=== PATIENT | female | born 1945 | race Caucasian/White ===

== ENCOUNTER → 2023-12-13 08:57 | Outpatient (REF) | payer MEDICARE, SELFPAY | LOC: RCS 08:57 | PROVIDERS: ATTENDING PHYSICIAN Nurse Practitioner Family | DX: I10 Essential (primary) hypertension (principal); R00.2 Palpitations; E78.00 Pure hypercholesterolemia, unspecified; R35.0 Frequency of micturition; Z13.89 Encounter for screening for other disorder; I35.0 Nonrheumatic aortic (valve) stenosis; I34.0 Nonrheumatic mitral (valve) insufficiency; I36.1 Nonrheumatic tricuspid (valve) insufficiency | CPT/HCPCS: 93005 ==

== ENCOUNTER → 2023-12-21 10:32 | Outpatient (REF) | payer MEDICARE, SELFPAY ==
[2023-12-21 11:08] LABS: % Basophils 1.1 % (0-2); % Immature Granulocytes 0.4 % (0-0.5); % Lymphocytes 30.2 % (20.5-51.1); % Monocytes 8.9 % (1.7-9.3); % Neutrophils 58.4 % (42.2-75.2); Absolute Basophils 0.1 10^3/uL (0-0.2); Absolute Eosinophils 0.1 10^3/uL (0-0.7); Absolute Lymphocytes 1.6 10^3/uL (1.2-3.4); Absolute Monocytes 0.5 10^3/uL (0.1-0.6); Absolute Neutrophils 3.1 10^3/uL (1.4-6.5); Hemoglobin 12.9 g/dL (12.0-16.0); Mean Corp Hgb Conc. 33.1 g/dL (33.0-37.0); Mean Corpuscular Volume 81.8 fL (81.0-99.0); Mean Platelet Volume 11.4 fL (7.4-10.4); Nucleated Red Blood Cells % 0 %; Platelet Count 154 10^3/uL (130-400); Red Blood Cell Count 4.77 10^6/uL (4.20-5.40); Red Cell Dist. Width 13.2 % (11.5-14.5); White Blood Cell Count 5.3 10^3/uL (4.8-10.8)
[2023-12-21 11:27] LABS: Blood Urea Nitrogen 23 mg/dl (7-17); Calcium 9.7 mg/dl (8.4-10.2); Carbon Dioxide 35 mmol/L (22-30); Chloride 92 mmol/L (98-107); Glucose 155 mg/dl (70-99); Potassium 3.3 mmol/L (3.5-5.1); Sodium 136 mmol/L (135-145); eGFR > 60.00
== END ==
LOC: OLABPV 10:32
PROVIDERS: ATTENDING PHYSICIAN Nurse Practitioner Family
DX: I10 Essential (primary) hypertension (principal); R00.2 Palpitations; E78.00 Pure hypercholesterolemia, unspecified; R35.0 Frequency of micturition; Z13.89 Encounter for screening for other disorder; I35.0 Nonrheumatic aortic (valve) stenosis; I34.0 Nonrheumatic mitral (valve) insufficiency; I36.1 Nonrheumatic tricuspid (valve) insufficiency
CPT/HCPCS: 36415; 80048; 84443; 85025

== ENCOUNTER → 2024-01-04 10:23 | Outpatient (REF) | payer MEDICARE, SELFPAY ==
[2024-01-04 12:17] LABS: Blood Urea Nitrogen 20 mg/dl (7-17); Calcium 9.1 mg/dl (8.4-10.2); Carbon Dioxide 35 mmol/L (22-30); Chloride 96 mmol/L (98-107); Glucose 99 mg/dl (70-99); Potassium 3.5 mmol/L (3.5-5.1); Sodium 135 mmol/L (135-145); eGFR > 60.00
== END ==
LOC: OLABPV 10:23
PROVIDERS: ATTENDING PHYSICIAN Nurse Practitioner Family
DX: E87.6 Hypokalemia (principal)
CPT/HCPCS: 36415; 80048

== ENCOUNTER → 2024-02-15 09:50 | Outpatient (REF) | payer MEDICARE, SELFPAY ==
[2024-02-15 11:26] LABS: Blood Urea Nitrogen 19 mg/dl (7-17); Calcium 9.3 mg/dl (8.4-10.2); Carbon Dioxide 37 mmol/L (22-30); Chloride 96 mmol/L (98-107); Glucose 164 mg/dl (70-99); Potassium 3.4 mmol/L (3.5-5.1); Sodium 136 mmol/L (135-145); eGFR > 60.00
== END ==
LOC: OLABPV 09:50
PROVIDERS: ATTENDING PHYSICIAN Internal Medicine Geriatric Medicine
DX: E78.00 Pure hypercholesterolemia, unspecified (principal); I10 Essential (primary) hypertension; I35.0 Nonrheumatic aortic (valve) stenosis; I34.0 Nonrheumatic mitral (valve) insufficiency; E78.2 Mixed hyperlipidemia; H69.83 Other specified disorders of Eustachian tube, bilateral; E55.9 Vitamin D deficiency, unspecified; J90 Pleural effusion, not elsewhere classified; M76.60 Achilles tendinitis, unspecified leg; M72.2 Plantar fascial fibromatosis; Z13.31 Encounter for screening for depression
CPT/HCPCS: 36415; 80048

== ENCOUNTER → 2024-02-24 14:10 | Outpatient (REF) | payer MEDICARE, SELFPAY | LOC: RAD 14:10 | PROVIDERS: ATTENDING PHYSICIAN Nurse Practitioner Family; REFERRING PHYSICIAN Internal Medicine | DX: R19.00 Intra-abdominal and pelvic swelling, mass and lump, unspecified site (principal) | CPT/HCPCS: 76770 ==

== ENCOUNTER → 2024-03-21 09:50 | Outpatient (REF) | payer MEDICARE, SELFPAY ==
[2024-03-21 12:35] LABS: Blood Urea Nitrogen 21 mg/dl (7-17); Calcium 9.2 mg/dl (8.4-10.2); Carbon Dioxide 33 mmol/L (22-30); Chloride 97 mmol/L (98-107); Glucose 127 mg/dl (70-99); Potassium 3.7 mmol/L (3.5-5.1); Sodium 139 mmol/L (135-145); eGFR > 60.00
== END ==
LOC: OLABPV 09:50
PROVIDERS: ATTENDING PHYSICIAN Internal Medicine Geriatric Medicine
DX: E78.00 Pure hypercholesterolemia, unspecified (principal); J90 Pleural effusion, not elsewhere classified; I10 Essential (primary) hypertension; I35.0 Nonrheumatic aortic (valve) stenosis; I34.0 Nonrheumatic mitral (valve) insufficiency; E78.2 Mixed hyperlipidemia; H69.83 Other specified disorders of Eustachian tube, bilateral; E55.9 Vitamin D deficiency, unspecified; M76.60 Achilles tendinitis, unspecified leg; M72.2 Plantar fascial fibromatosis; R73.01 Impaired fasting glucose
CPT/HCPCS: 36415; 80048

== ENCOUNTER → 2024-03-26 09:15 | Outpatient (REF) | payer MEDICARE, SELFPAY | LOC: RCS 09:15 | PROVIDERS: ATTENDING PHYSICIAN Internal Medicine; FAMILY PHYSICIAN Internal Medicine Geriatric Medicine | DX: I35.0 Nonrheumatic aortic (valve) stenosis (principal); I35.1 Nonrheumatic aortic (valve) insufficiency; I34.0 Nonrheumatic mitral (valve) insufficiency; I36.1 Nonrheumatic tricuspid (valve) insufficiency | CPT/HCPCS: 93306 ==

== ENCOUNTER → 2024-04-23 10:30 | Outpatient (REF) | payer MEDICARE, SELFPAY | LOC: HWWDC 10:30 | PROVIDERS: ATTENDING PHYSICIAN Internal Medicine Geriatric Medicine | DX: Z12.31 Encounter for screening mammogram for malignant neoplasm of breast (principal) | CPT/HCPCS: 77063; 77067 ==

== ENCOUNTER → 2024-11-06 09:03 | Outpatient (REF) | payer MEDICARE, SELFPAY | LOC: RCS 09:03 | PROVIDERS: ATTENDING PHYSICIAN Internal Medicine; FAMILY PHYSICIAN Internal Medicine Geriatric Medicine | DX: I35.0 Nonrheumatic aortic (valve) stenosis (principal); I35.1 Nonrheumatic aortic (valve) insufficiency; I34.0 Nonrheumatic mitral (valve) insufficiency; I36.1 Nonrheumatic tricuspid (valve) insufficiency | CPT/HCPCS: 93306 ==

== ENCOUNTER → 2024-11-09 10:26 | Outpatient (REF) | payer MEDICARE, SELFPAY | LOC: OLABPV 10:26 | PROVIDERS: ATTENDING PHYSICIAN Internal Medicine | DX: I10 Essential (primary) hypertension (principal); E78.00 Pure hypercholesterolemia, unspecified; I70.0 Atherosclerosis of aorta | CPT/HCPCS: 36415 ==

== ENCOUNTER → 2024-11-13 11:52 | Outpatient (REF) | payer MEDICARE, SELFPAY ==
[2024-11-13 12:24] LABS: % Basophils 1.8 % (0-2); % Immature Granulocytes 0.3 % (0-0.5); % Lymphocytes 37.4 % (20.5-51.1); % Neutrophils 52.5 % (42.2-75.2); Absolute Basophils 0.1 10^3/uL (0-0.2); Absolute Lymphocytes 1.5 10^3/uL (1.2-3.4); Absolute Monocytes 0.3 10^3/uL (0.1-0.6); Absolute Neutrophils 2.1 10^3/uL (1.4-6.5); Hematocrit 39.3 % (37.0-47.0); Hemoglobin 12.5 g/dL (12.0-16.0); Mean Corp Hgb Conc. 31.8 g/dL (33.0-37.0); Mean Corpuscular Hgb 26.7 pg (27.0-31.0); Mean Corpuscular Volume 83.8 fL (81.0-99.0); Mean Platelet Volume 11.1 fL (7.4-10.4); Nucleated Red Blood Cells % 0 %; Platelet Count 144 10^3/uL (130-400); Red Blood Cell Count 4.69 10^6/uL (4.20-5.40); Red Cell Dist. Width 14.3 % (11.5-14.5)
[2024-11-13 12:50] LABS: ALT (SGPT) 50 U/L (0-35); AST (SGOT) 83 U/L (14-36); Albumin 3.9 g/dl (3.5-5.0); Alkaline Phosphatase 64 U/L (38-126); Blood Urea Nitrogen 17 mg/dl (7-17); Calcium 8.8 mg/dl (8.4-10.2); Carbon Dioxide 37 mmol/L (22-30); Chloride 94 mmol/L (98-107); Glucose 99 mg/dl (70-99); HDL Cholesterol 30 mg/dl; LDL Cholesterol, Calculated 55 mg/dl; Potassium 3.3 mmol/L (3.5-5.1); Sodium 137 mmol/L (135-145); Total Cholesterol 102 mg/dl (50-199); Total Protein 6.3 g/dl (6.3-8.2); Triglyceride 85 mg/dl (10-149); Very Low Density Lipoprotein 17 mg/dl (0-30); eGFR > 60.00
== END ==
LOC: OLABPV 11:52
PROVIDERS: ATTENDING PHYSICIAN Internal Medicine
DX: I10 Essential (primary) hypertension (principal); E78.00 Pure hypercholesterolemia, unspecified; I70.0 Atherosclerosis of aorta
CPT/HCPCS: 36415; 80053; 80061; 85025

== ENCOUNTER → 2024-12-07 09:46 | Outpatient (REF) | payer MEDICARE, SELFPAY ==
[2024-12-07 11:16] LABS: ALT (SGPT) 21 U/L (0-35); AST (SGOT) 47 U/L (14-36)
== END ==
LOC: OLABPV 09:46
PROVIDERS: ATTENDING PHYSICIAN Internal Medicine
DX: R79.89 Other specified abnormal findings of blood chemistry (principal)
CPT/HCPCS: 36415; 84450; 84460

== ENCOUNTER 2024-12-12 06:50 | Day surgery (SDC) | payer MEDICARE, SELFPAY ==
[2024-12-12] VITALS (20 sets, daily range): BP systolic 79–140; BP diastolic 34–87; BMI 19.5
--- NOTE | 2024-12-12 09:15 | PTCARENOTE ---
recieved pt after CATARINO. pt awake, and oriented.waiting now for cardiac cath w dr lowery.
[2024-12-12] MEDS: NSS 159 ML IV (09:20)
--- NOTE | 2024-12-12 10:56 | ITS.CL.CATH ---
[facility] - Catheterization
Cardiac Catheterization
Procedure Report:
CARDIAC CATHETERIZATION REPORT
Date of Procedure: 12/12/2024
Referring: Rafa Bird M.D., Ph.D.
Indication: Multivalve disease including severe aortic valve stenosis, moderate severe mitral regurgitation.
PROCEDURE:
1. Right heart catheterization.
2. Coronary angiography.
A total of 7 minutes of procedural/moderate sedation was utilized. An independent medical collections representative was present to assist with and help manage the patient's level of consciousness and physiologic status.
ACCESS:
1. 6 Peruvian right radial artery using a modified Seldinger technique.
2. 5 Peruvian right antecubital vein using a previously placed IV.
CATHETERS:
1. 5 Peruvian balloon with.
2. 5 Peruvian JR4.
3. 5 Peruvian JL 3.5.
HEMODYNAMIC DATA
Weight (kg): 53.1
AO (s/d/x, mmHg): 115/55/80
LV (s/x, mmHg): Not obtained.
PCWP (a/v/x, mmHg): 25/25/18
PA (s/d/x, mmHg): 41/15/24
RV (s/x, mmHg): 42/5
RA (a/v/x, mmHg): 10/7/5
SVC SvO2 (%): 74.2
IVC SvO2 (%): Not obtained.
RA SvO2 (%): Not obtained
RV SvO2 (%): Not obtained.
PA SvO2 (%): 71.9
SaO2 (%): 95.4
Hbg (g/dL): 12.1
DINESH
CO (L/min): 3.87
CI (L/min/m2): 2.46
Thermodilution
CO (L/min): Not performed.
CI (L/min/m2): Not performed.
TPG (mmHg): 6
PVR (Bob Units): 1.55
SVR (dynes*seconds*cm^-5): 1550
AVO2 Diff (Volume %): 3.87
AV gradient (x, mmHg): Not obtained.
AV area (cm2): Not obtained.
MV gradient (x, mmHg): Not obtained.
MV area (cm2): Not obtained.
LEFT VENTRICULOGRAPHY: Not performed.
AORTOGRAPHY: Not performed.
CORONARY ANGIOGRAPHY
Dominance: Codominant.
Left Main: Very short, bifurcating vessel. There is no coronary artery disease.
LAD: Normal size vessel giving rise to several small diagonals. The mid and distal LAD are severely tortuous. There is no coronary artery disease.
Ramus: Congenitally absent.
Circumflex: Large size, codominant vessel giving rise to 2 obtuse marginals, a left posterolateral branch and a partial LPDA. OM1 is a fairly large vessel supplying the majority of the lateral wall. OM 2 is a 1.5 mm vessel at the base of the
inferolateral wall. There is no coronary artery disease.
RCA: Medium size, codominant vessel. There is no coronary artery disease.
INTERVENTIONS
None.
Closure Device: Vascular band for the right radial artery, manual pressure for the right antecubital vein.
Radiation dose (mGy): 107.67
DAP (cm2.Gy): 10.2202
Fluoroscopy time (minutes): 2.0
CONCLUSIONS:
1. Codominant circulation with no coronary artery disease.
2. Mildly elevated filling pressures (PCWP = 18 mmHg at 53.1 kg).
3. Preserved systolic function (cardiac index = 2.46 L/min/m�, a VO2 difference 3.87 volume percent).
4. Severe aortic valve stenosis, moderate aortic regurgitation, moderate/severe mitral regurgitation by echocardiography.
RECOMMENDATIONS:
1. Expectant management after cardiac catheterization via right radial/antecubital approach.
2. Limited weight bearing on the right wrist for one week.
3. Referral to cardiothoracic surgery for evaluation of optimal valve strategy.
4. Continue OMT/GDMT as hemodynamics will permit.
5. Stable for outpatient follow-up.
Copy to: Rafa Bird M.D., Ph.D., Harris Wharton M.D., Med Parker M.D.
Chace Smith DO, FACC, FACP
== END 2024-12-12 14:00 | disposition home or self-care (01) ==
LOC: CATH 06:50
PROVIDERS: ATTENDING PHYSICIAN Internal Medicine; FAMILY PHYSICIAN Internal Medicine Geriatric Medicine
DX: I08.3 Combined rheumatic disorders of mitral, aortic and tricuspid valves (principal); I10 Essential (primary) hypertension; E78.5 Hyperlipidemia, unspecified; Z79.82 Long term (current) use of aspirin
CPT/HCPCS: 93312; 93320; 93325; C1894; 93460; Q9967

== ENCOUNTER → 2024-12-21 09:03 | Outpatient (REF) | payer MEDICARE, SELFPAY | LOC: RAD 09:03 | PROVIDERS: ATTENDING PHYSICIAN Nurse Practitioner Acute Care; FAMILY PHYSICIAN Internal Medicine Geriatric Medicine | DX: I35.1 Nonrheumatic aortic (valve) insufficiency (principal); I34.0 Nonrheumatic mitral (valve) insufficiency | CPT/HCPCS: 75572; Q9967 ==

== ENCOUNTER 2025-01-16 04:59 | Inpatient (IN) | payer MEDICARE, SELFPAY ==
[2025-01-03 08:26] VITALS: BMI 19.6
[2025-01-03 09:06] LABS: % Basophils 1.1 % (0-2); % Eosinophils 0.9 % (0-6); % Immature Granulocytes 0.4 % (0-0.5); % Lymphocytes 23.4 % (20.5-51.1); % Neutrophils 69.2 % (42.2-75.2); Absolute Basophils 0.1 10^3/uL (0-0.2); Absolute Lymphocytes 1.1 10^3/uL (1.2-3.4); Absolute Monocytes 0.2 10^3/uL (0.1-0.6); Absolute Neutrophils 3.2 10^3/uL (1.4-6.5); Hematocrit 39.9 % (37.0-47.0); Hemoglobin 12.9 g/dL (12.0-16.0); Mean Corp Hgb Conc. 32.3 g/dL (33.0-37.0); Mean Corpuscular Volume 83.6 fL (81.0-99.0); Mean Platelet Volume 10.8 fL (7.4-10.4); Nucleated Red Blood Cells % 0 %; Platelet Count 135 10^3/uL (130-400); Red Blood Cell Count 4.77 10^6/uL (4.20-5.40); Red Cell Dist. Width 14.6 % (11.5-14.5); White Blood Cell Count 4.6 10^3/uL (4.8-10.8)
[2025-01-03 09:12] LABS: INR 1.04; PT 14.1 Sec (11.4-14.6)
[2025-01-03 09:13] LABS: APTT 32.5 Sec (23.4-35.0)
[2025-01-03 09:38] LABS: ALT (SGPT) 24 U/L (0-35); AST (SGOT) 46 U/L (14-36); Alkaline Phosphatase 65 U/L (38-126); Blood Urea Nitrogen 23 mg/dl (7-17); Calcium 9.4 mg/dl (8.4-10.2); Carbon Dioxide 33 mmol/L (22-30); Chloride 95 mmol/L (98-107); Direct Bilirubin 0.3 mg/dl (0.0-0.4); Estimated Creatinine Clearance 52 ml/min; Glucose 106 mg/dl (70-99); Potassium 3.5 mmol/L (3.5-5.1); Sodium 135 mmol/L (135-145); Total Bilirubin 1.3 mg/dl (0.2-1.3); Total Protein 6.3 g/dl (6.3-8.2); eGFR > 60.00
[2025-01-03 09:42] LABS: Urine Albumin Negative (Neg - Trace); Urine Bilirubin Negative (Negative); Urine Character Clear (Clear); Urine Color Yellow; Urine Glucose Negative (Negative); Urine Ketone Negative (Negative); Urine Leukocyte Negative (Negative); Urine Nitrite Negative (Negative); Urine Occult Blood Negative (Negative); Urine Urobilinogen Negative (Neg - 1+)
--- NOTE | 2025-01-03 10:38 | CM ---
Chart reviewed. Met with the patient in PAT. Reviewed preoperative and postoperative instructions and restrictions, along with showering instructions. Gave patient 2 soaps. Patient is agreeable to a home visit by CT Transitional Care RN.
Patient is independent of ADLS, lives alone in a [address], Independent Living at [facility], 0 SONAL, 0 DME. Patient will go home alone, but has a associate financial analyst service if needed. Plan is for the patient to return home with CT Transitional RN.
[2025-01-03 10:47] LABS: Glycohemoglobin (HgbA1c) 5.6 % (4.0-5.6)
[2025-01-16] VITALS (18 sets, daily range): BP systolic 98–151; BP diastolic 38–65; BMI 19.1
[2025-01-16] MEDS: PROTONIX 40 MG PO (05:22)
[2025-01-16] MEDS: MAGNESIUM OXIDE 500 MG PO (05:22)
[2025-01-16] MEDS: LOPRESSOR 12.5 MG PO (05:22)
[2025-01-16] MEDS: BACTROBAN 2% OINTMENT 1 APPLIC NASAL ×2 (05:36→20:41)
--- NOTE | 2025-01-16 06:00 | PTCARENOTE ---
admitted pt into CVICU 2263. pt confirmed 2 showers at home. pt clipped and prepped for CVOR. pre-op education provided. pre-op meds given. conveyor system operator to CVOR.
--- NOTE | 2025-01-16 06:03 | W.CVOR.SURPR ---
CVOR Surgeon Immed Pre Op
-
I have examined this patient prior to performance of the scheduled procedure.
The patient's condition is unchanged from the time of the dictated/written History and
Physical and the patient is able to undergo the scheduled procedure.
AVR/MVR/TVr + XIOMARA clip
[2025-01-16 08:04] LABS: Urine Albumin 1+ (Neg - Trace); Urine Bilirubin Negative (Negative); Urine Character Clear (Clear); Urine Color Yellow; Urine Glucose Negative (Negative); Urine Ketone Negative (Negative); Urine Leukocyte Negative (Negative); Urine Nitrite Negative (Negative); Urine Occult Blood Negative (Negative); Urine Urobilinogen Negative (Neg - 1+)
[2025-01-16 08:05] LABS: ACT+ - POC 96 Seconds (82-134)
[2025-01-16 09:02] LABS: ACT+ - POC 623 Seconds (82-134)
[2025-01-16 09:34] LABS: ACT+ - POC 486 Seconds (82-134)
[2025-01-16 09:39] LABS: Urine Amorphous Seen; Urine Red Blood Cell 0-2 /HPF (0-2); Urine Squamous Cell 0-2 /LPF (Few); Urine White Cell 0-2 /HPF (0-5)
[2025-01-16 09:55] LABS: Glucose - POC 121 mg/dl (70-99); HCO3 - POC 34 mmol/L (21-28); Hematocrit - POC 28 % PCV (37-47); Hemodilution- POC Yes; Hemoglobin Calculated - POC 9.4; Ionized Calcium - POC 1.02 mmol/L (1.15-1.33); Lactate - POC 0.36 mmol/L (0.36-0.75); O2 Saturation %Calculated-POC 99.9 % (94-98); PCO2 - POC 45 mmHg (35-48); PO2 - POC 248 mmHg (83-108); Potassium - POC 3.6 mmol/L (3.5-5.1); Sodium - POC 143 mmol/L (136-145); Specimen Type - POC Arterial; pH - POC 7.48 (7.35-7.45)
[2025-01-16 10:28] LABS: B.E. - POC 5.9 mmol/L; Glucose - POC 149 mg/dl (70-99); HCO3 - POC 32 mmol/L (21-28); Hematocrit - POC 28 % PCV (37-47); Hemodilution- POC Yes; Hemoglobin Calculated - POC 9.5; Ionized Calcium - POC 1.01 mmol/L (1.15-1.33); Lactate - POC 0.59 mmol/L (0.36-0.75); O2 Saturation %Calculated-POC 99.8 % (94-98); PCO2 - POC 51 mmHg (35-48); PO2 - POC 224 mmHg (83-108); Potassium - POC 3.3 mmol/L (3.5-5.1); Sodium - POC 143 mmol/L (136-145); Specimen Type - POC Arterial
[2025-01-16 10:43] LABS: ACT+ - POC 783 Seconds (82-134)
[2025-01-16 10:55] LABS: B.E. - POC 5.6 mmol/L; Glucose - POC 143 mg/dl (70-99); HCO3 - POC 32 mmol/L (21-28); Hematocrit - POC 27 % PCV (37-47); Hemodilution- POC Yes; Hemoglobin Calculated - POC 9.2; Ionized Calcium - POC 1.04 mmol/L (1.15-1.33); Lactate - POC 0.73 mmol/L (0.36-0.75); O2 Saturation %Calculated-POC 99.7 % (94-98); PCO2 - POC 53 mmHg (35-48); PO2 - POC 213 mmHg (83-108); Potassium - POC 3.4 mmol/L (3.5-5.1); Sodium - POC 144 mmol/L (136-145); Specimen Type - POC Arterial; pH - POC 7.39 (7.35-7.45)
[2025-01-16 11:07] LABS: ACT+ - POC 612 Seconds (82-134)
--- NOTE | 2025-01-16 11:32 | CM ---
Patient in OR today for planned CT Surgery.
Reviewed pre-admission assessment. Pt. [place]; [address] home. Pt. is functionally indep. w/ ADLs, mobility without the use of any assisted device.
Antic. DC plan is for home w/ CT Transitional Care RN.
CM to follow.
[2025-01-16 11:37] LABS: B.E. - POC 4.2 mmol/L; Glucose - POC 103 mg/dl (70-99); HCO3 - POC 29 mmol/L (21-28); Hematocrit - POC 29 % PCV (37-47); Hemodilution- POC No; Ionized Calcium - POC 1.16 mmol/L (1.15-1.33); Lactate - POC < 0.30 mmol/L (0.36-0.75); O2 Saturation %Calculated-POC 99.9 % (94-98); PCO2 - POC 45 mmHg (35-48); PO2 - POC 311 mmHg (83-108); Potassium - POC 2.6 mmol/L (3.5-5.1); Sodium - POC 145 mmol/L (136-145); Specimen Type - POC Arterial; pH - POC 7.42 (7.35-7.45)
[2025-01-16 11:39] LABS: B.E. - POC 4.7 mmol/L; Glucose - POC 151 mg/dl (70-99); HCO3 - POC 29 mmol/L (21-28); Hematocrit - POC 29 % PCV (37-47); Hemodilution- POC Yes; Hemoglobin Calculated - POC 9.8; Ionized Calcium - POC 0.98 mmol/L (1.15-1.33); Lactate - POC 0.39 mmol/L (0.36-0.75); O2 Saturation %Calculated-POC 99.9 % (94-98); PCO2 - POC 42 mmHg (35-48); PO2 - POC 330 mmHg (83-108); Potassium - POC 3.6 mmol/L (3.5-5.1); Sodium - POC 145 mmol/L (136-145); Specimen Type - POC Arterial; pH - POC 7.45 (7.35-7.45)
[2025-01-16 11:44] LABS: ACT+ - POC 107 Seconds (82-134)
[2025-01-16 11:56] LABS: ACT+ - POC > 1003 Seconds (82-134)
[2025-01-16 12:19] LABS: B.E. - POC 8.4 mmol/L; Glucose - POC 120 mg/dl (70-99); HCO3 - POC 32 mmol/L (21-28); Hematocrit - POC 24 % PCV (37-47); Hemodilution- POC Yes; Hemoglobin Calculated - POC 8.2; Ionized Calcium - POC 1.16 mmol/L (1.15-1.33); Lactate - POC 0.34 mmol/L (0.36-0.75); PCO2 - POC 37 mmHg (35-48); PO2 - POC 510 mmHg (83-108); Potassium - POC 3.3 mmol/L (3.5-5.1); Sodium - POC 144 mmol/L (136-145); Specimen Type - POC Arterial; pH - POC 7.54 (7.35-7.45)
--- NOTE | 2025-01-16 12:19 | W.PN.CT.SURG ---
CT Surgery Operative Note
-
CARDIAC SURGERY OPERATIVE REPORT
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
Postoperative Diagnosis: Same
Procedure(s) Performed:
1. Standard sternotomy with aortic and bicaval cannulation
2. Simple mitral valve repair [28 mm annuloplasty ring]
3. Surgical aortic valve replacement [21 mm biological valve]
4. Aortoplasty, ascending aortic replacement anteriorly with bovine pericardium
5. Left atrial appendage exclusion [35 mm device]
6. Modifier 22, extensive adhesiolysis due to dense intrapericardial adhesions
7. Placement of temporary atrial ventricular pacing wires
8. Transesophageal echocardiography
9. Drainage of right and left pleural effusions [right - 400 cc - greater than left]
Date of Surgery: 01/16/2025
Comorbidities:
1. Severe aortic valve stenosis
2. Moderate to moderately severe aortic valve insufficiency
3. Atherosclerotic disease of the aorta
4. Hyperlipidemia
5. Hypertension
6. Functional/degenerative mitral valve insufficiency, moderately severe
7. 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
8. Volume overload with 400 cc of right pleural effusion
Attending Surgeon: Med Parker MD, MS
Assistants: Char Amin PA-C (present and necessary to personal injury legal assistant, retraction, suction, exposure, suture management, and wound closure under my direction)
Anesthesiology: Efren Moe MD and Susi Dee CRNA
Scrub and Circulating RNs: Lilliam Majano, RN, Anaya Whittaker, SAMNATA
Copy Manager: Racquel Guthrie CCP
Anesthesia: GETA
EBL: per perfusion records
Products: 1 prbc
CPB Time: 144 minutes
Aortic Cross Clamp Time: 117 minutes
Indication(s) for Procedures: This is an 79-year-old female with double valve disease, she had severe aortic valve stenosis with at least a moderate degree of aortic valve insufficiency. She had mixed pathology mitral valve insufficiency that was
least moderately severe secondary to annular dilatation, preoperatively there was some concern for mitral valve stenosis given that she had mild to moderate mitral annular calcification as well as some calcification of her cords. However, my review
with anesthesiology, her mitral valve appeared to be moving quite well and her pathology for the type I mitral valve insufficiency.
Aortic Valve Description: Heavily calcified trileaflet aortic valve with severe thickening at the left 9 commissure, left and right coronary ostia in the normal anatomic positions and visible. The aorta was heavily calcified up towards the ST
junction into the ascending aorta.
Mitral Valve Description: Thickening of both the anterior and posterior leaflets of the mitral valve, there was MAC towards the posterior annulus of the mitral valve.
Tricuspid Valve Description: Functional, dilated annulus with mild to moderate degree of insufficiency.
Findings: Left ventricular ejection fraction preoperatively was 60% with no significant regional wall motion abnormalities. Following surgery her EF remained the same at 55 to 60% with no new regional wall motion abnormalities. She was not
requiring inotropic support, LV contractions were symmetrical and concentric. Her aortic valve was heavily calcified, this was resected down towards the level of the annulus. Given her small BSA of approximately 1.56 and a BMI of 19.1, I opted to
not perform an aortic root enlargement as I believe there was no significant risk of patient prosthesis mismatch. Her mitral valve was repaired with a simple ring annuloplasty using 14 nonpledgeted 2-0 Ethibond sutures circumferentially securing a
[address] with core knots. The aortic valve was replaced with a 21 mm bioprosthesis secured into place with 14 nonpledgeted 2-0 Ethibond sutures circumferentially with core knots. Because her tricuspid valve insufficiency was only
mild/mild to moderate, I felt that reducing her mitral valve insufficiency would be enough to at least reduce her tricuspid valve insufficiency as well at this valve alone. At the conclusion the case off cardiopulmonary bypass, there is no
paravalvular leak on the aortic valve prosthesis, the mean gradient across the valve was 10 mmHg, there is no systolic anterior motion of mitral valve leaflets, there is no mitral valve insufficiency, and the mean gradient across the mitral valve
was 2 mmHg. The tricuspid valve insufficiency had decreased from mild to moderate to trace to mild/mild. She did require AV pacing, she was anemic on pump and so received 1 unit of PRBCs, she did not require any inotropic support, cardiac index
was 2.1 after chest closure her left atrial appendage was verified to be free of any thrombus or debris preoperatively. Of note, there was an extensive degree of intrapericardial adhesions that required additional 30 minutes of time dissection pre
and post bypass initiation. Additionally the left atrial appendage was completely plastered to the RVOT on the underside and this was freed up with electrocautery for deploying a 35mm clip.
Specimen(s): Aortic valve leaflets.
Prosthesis:
1. 35 mm clip, serial #[id number]
2. 28 mm ring annuloplasty, Boogie physio 2, serial #[id number]
3. 21 mm Boogie Inspiris Resilia aortic valve, serial #[id number]
4. Bovine pericardial patch, serial number [id number]
Description of Procedure: The patient was taken to the operating room. Their identity and procedure to be performed were verified and they were positioned supine on the operating table. Induction via general anesthesia with endotracheal intubation
was performed and central venous access and arterial monitoring were inserted. A preoperative transesophageal echocardiogram was performed to assess cardiac function and valvular function. The patient was then prepped and draped from chin to feet in
a sterile fashion. A preoperative time-out was performed with all members of the team present. A midline chest incision was performed along with median sternotomy. The innominate vein was isolated. Upon opening the pericardium there was dense
intrapericardial adhesions that required lysis with electrocautery in order to free up a cannulation site at both the ascending aortic and right atrium. To free up the cannulation site of the ascending aorta and right atrium. Additional dissection
was performed along the anterior the heart heading towards the left ventricle. However this became extremely dense and so I elected to heparinize and go on cardiopulmonary bypass before additional dissection. Full heparinization was given (a total
of 35,000 units). We created a pericardial well. The aortic cannulation site was chosen where it was soft, pliable, and free of calcium. Cannulation was performed with an arterial cannula in the ascending aorta, angled metal tip cannular in the
superior vena cava and straight bendable cannula in the inferior vena cava. The arterial cannula line had an appropriate bounce and correlating pressures. The ACT was confirmed to be over 400 and retrograde autologous priming was performed before
commencing cardiopulmonary bypass. While on cardiopulmonary bypass, additional dissection was performed to free of the left ventricle and apex. At this point the left atrial appendage was then dissected free as it was placed underneath the
pulmonary artery. A pursestring was placed in the right atrium and a retrograde coronary sinus catheter was placed under manual guidance. The pulmonary artery was away from the aorta to facilitate a clamp site. Sondergaard�s groove was
developed after creating the oblique sinus. The aortic cross-clamp was placed after decreasing the flow on the bypass and mean arterial pressure. A total of 1.0L initial dose of (600 retrograde, 200 direct RCA, 200 direct LM). While retrograde was
being given, the ascending aorta was incised just above the sinotubular junction and stay sutures were placed in order to facilitate exposure. I was able to see cardioplegia emanating from the left main. Del-Nido cardioplegia solution was given
and planned for re-dosing every 60 minutes as necessary. There was rapid electro-mechanical arrest of the heart at 400 cc of cardioplegia. Once a total of 600 of retrograde was given, I switched to direct ostial down the right coronary ostium and
then additional down the left main. Cold slush was placed into a lap on the RV and we systemically cooled to 34 degrees centigrade. Once were satisfied that the heart was fully arrested, was rotated medially and the left atrial appendage was
dissected out further and then clipped to a 35 mm device flush the base.
Carbon dioxide was used to flood the field. The location of both left and right coronary vessels were visualized in the root.The leaflets were excised and sent for pathological assessment. The annulus was debrided of any calcium being mindful of the
annulus and membranous septum. The root and left ventricular outflow tract were thoroughly irrigated to remove any debris.
Next, the mitral valve was accessed via the intra-atrial septum at Sondergaard's groove followed by valve analysis. The mitral valve was repaired as described above. The left ventricular vent was repositioned across the mitral valve into the left
ventricular and the left atrium was closed with a 3-0 prolene.
I turned my attention back toward the root. A total of 14 Non-pledgeted 2-0 ethibond inverted annular sutures were placed [id number] circumferentially. These were brought through the sewing cuff of the prosthetic valve which as then parachuted
into place. The left and right coronary ostia were visualized and were unobstructed by the valve. A Cor-Knot device was used to secure the annular sutures. The valve was inspected and was well seated. The ascending aorta anteriorly and towards the
pulmonary artery was extremely calcified and sutures were not going through safely. I elected to resect this portion of the ascending aorta until there was reasonable tissue. Using a bovine pericardial patch I fashioned into a teardrop shape
approximately 5 x 3 cm in size. The patch was sewn to each edge of the ascending aorta making sure to imbricated on the inside. This was done with 4-0 Prolene from apex to apex. PrevaLeak leak sealant was then placed along the suture lines to
reinforce it.
De-airing maneuvers were performed and temporary atrial and ventricular pacing wires were placed at the SVC/RA junction and base of the right ventricle, respectively. The patient was placed in a Trendelenburg position and flows on bypass were
lowered. The aortic cross clamp was removed and flows were slowly brought back up. The left atrial suture line was hemostatic. Transesophageal echocardiography revealed no evidence of systolic anterior motion and ventricular function was normal.
The AV prosthesis was well seated without PVL or AI. Once de-airing was satisfactory the left ventricular and root vents were removed. After verifying acceptable parameters, we initiated weaning from cardiopulmonary bypass. Once we were off
cardiopulmonary bypass, the venous cannulas was clamped and removed sequentially. A test dose of protamine was administered and the patient was monitored for any adverse reaction before resuming protamine. Once half of the protamine dose was
delivered, pump suckers were turned off and the systolic blood pressure was lowered for aortic decannulation. The aortic cannula was removed and purse strings were tied down. All cannulation sites were oversewn with a 4-0 prolene. The left and
right pleura were opened and drained accordingly. The left atrial suture line was inspected and hemostasis was confirmed. Mediastinal hemostasis was obtained. Two #24 Caleb drains were placed within the pericardium with 2 additional #19 Estonian
Caleb drains into the either hemithorax. The sternum was approximated with 4 #7 single and 3 #8 double stainless steel wires. Fascia was approximated with #1 vicryl suture. The subcutaneous, dermis and epidermis were closed in layers in a running
fashion. The skin wound was cleansed and dressed.
All instrument, sponge, and needle counts were confirmed to be correct x 2 at the end of the operation. The patient was transferred to the cardiac intensive care unit in critical but stable condition.
I, Dr. Med Parker, was present, scrubbed for, and performed all critical elements of this procedure.
Med Parker MD, MS
Cardiothoracic Surgeon
[facility]
This dictation was created using the [employer] dictation system. Please excuse any grammatical, typographical, or 'sound alike' errors
--- NOTE | 2025-01-16 12:35 | CON.INTV ---
Consultation
Consultation Request
Date/Time Consultation Requested: 01/16/2025 - 1205
Date/Time Consultation Performed: 01/16/2025 - 1232
Requesting Provider: Susan Huitron PA-C
Performing Provider: Dr. Stern
Reason for Consultation: SAVR + MV-repair
Medical History
-
Chief Complaint: Elective AVR + MV repair
History of Present Illness:
79-year-old female nontobacco smoker with a past medical history of aortic valve stenosis, aortic valve insufficiency, mitral valve regurgitation, tricuspid valve regurgitation, hypertension and hyperlipidemia who presents for aortic valve
replacement + mitral valve repair. Patient known to the cardiothoracic surgery service with visit on 12/24/[address] Parker. Patient had a transthoracic echocardiogram on 11/06/2024 showing moderate�severe eccentric MR with severe aortic stenosis
with peak/mean gradients of 72/42 mmHg with an calculated CHARLIE of 0.7 cm�, with moderate AI. Also a small primarily anterior pericardial effusion without evidence of hemodynamic compromise. She underwent left heart catheterization on 12/12/2024
showing no significant coronary artery disease with mildly elevated filling pressures with PCWP: 18 mmHg, with preserved CI at 2.46. Patient is very active for her age and lives independently at [facility]. Cardiothoracic surgical procedure was
reviewed and patient agreed to an intervention. Today she underwent surgical aortic valve replacement with simple mitral valve repair, aortoplasty with ascending aortic replacement with bovine pericardium and left atrial appendage exclusion. There
was no immediate complications, patient was transferred to the CVICU postoperatively for further care, and Sld Teacher services consulted for additional management/recommendations.
When I saw the patient, she was resting in bed in no acute distress, intubated on SIMV at 14/450/40%/5, with PIP: 20 cmH2O, VTe 475mL and breathing at 14 breaths/min. Heart rate 70, BP 83/39 via A-line, PAP 26/11, and saturating 100%. Currently on
Levophed at 4 mcg/min, Precedex at 0.5 mcg/kg/h, and insulin drip at 1 unit/hr. Also on LR at 250 cc/hr.
PMHx: Aortic valve stenosis, aortic valve insufficiency, mitral valve regurgitation, tricuspid valve regurgitation, atherosclerosis involving the aorta, hyperlipidemia, hypertension
PSHx: Hysterectomy, bilateral cataract surgery, melanoma removal from left arm X2, skin cancer removed from right ankle, root canal, cardiac cath
Past Medical History
Past Medical History: Other (Above as per HPI)
Past Surgical History: Other (Above as per HPI)
Social History
Tobacco: Non-smoker
Alcohol: None
Drug: None
Personal:
Living: Alone
Employment: Retired
Family History
Family History: Cancer (Mother (unknown type))
Allergies / Home Medications
Allergies
Allergy/AdvReac Type Severity Reaction Status Date / Time
iodine Allergy Rash Verified 01/01/25 14:09
Home Medications
�Medication �Instructions �Recorded �Confirmed �Last Taken �Type
calcium carbonate (Calcium 600) 600 mg PO DAILY Supplement 07/05/23 01/16/25 01/15/25 08:00 History
diltiazem HCl 120 mg capsule,24 120 mg PO DAILY Arrhythmia 07/05/23 01/16/25 01/13/25 08:00 History
hr,extended release
ezetimibe 10 mg tablet 10 mg PO DAILY High Cholesterol 07/05/23 01/16/25 01/15/25 08:00 History
prednisolone acetate 1 % eye 1 drp RIGHT EYE Q48H Eye Condition 07/05/23 01/16/25 01/15/25 History
drops,suspension
rosuvastatin 40 mg tablet 40 mg PO DAILY High Cholesterol 07/05/23 01/16/25 01/15/25 08:00 History
therapeutic multivitamin 1 tab PO DAILY Supplement 07/05/23 01/16/25 01/08/25 History
hydrochlorothiazide 25 mg tablet 25 mg PO DAILY 12/12/24 01/16/25 01/15/25 08:00 History
peg 400-propylene glycol (PF) 0.4 1 drp ophthalmic (eye) 6XD PRN dry 12/12/24 01/16/25 01/15/25 20:00 History
%-0.3 % eye drops in a dropperette eyes
(Systane (PF))
potassium chloride 20 mEq 20 meq PO DAILY 12/12/24 01/16/25 01/15/25 08:00 History
tablet,extended release
prednisolone acetate 1 % eye 1 drp ophthalmic (eye) DAILY 01/01/25 01/16/25 01/15/25 History
drops,suspension
Review of Systems
-
Unable to Obtain full review of systems at this time due to: Patient Intubation
Vitals / Labs / Diagnostic Testing
Vital Signs
Temp Pulse Resp BP Pulse Ox
97.9 F 74 19 118/52 100
01/16/25 18:00 01/16/25 18:15 01/16/25 18:15 01/16/25 18:00 01/16/25 18:15
Lab Data
01/16/25 17:02
01/16/25 12:47
Laboratory Results
01/16/25 01/16/25
12:47 17:10
PT 19.5 H
INR 1.60
APTT 37.0 H
pH 7.49 H 7.46 H
pCO2 39 H 42 H
pO2 199 H 195 H
HCO3 29.7 H 29.9 H
O2 Delivery Level Vent
Diagnostic Testing:
Physical Exam
-
HEENT: Normocephalic, Anicteric and Other (ETT in place)
Cardiovascular: S1/S2 and Peripheral Edema (negative)
Respiratory: Wheeze (negative), Rales (negative), Rhonchi (negative), Non-Labored Respirations, Other (Mechanical breath sounds heard bilaterally) and Other (Bilateral pleural chest tubes + mediastinal chest tubes x 2)
GI: Soft, Non Distended, Non Tender and Normal Bowel Sounds
Neurology: Tremors (negative) and Other (Sedated)
Skin: Warm and Dry
General: Respiratory Distress (negative), Comfortable, Fever (negative) and Chills (negative)
Assessment
-
Assessment: 79-year-old female nontobacco smoker with a past medical history of aortic valve stenosis, aortic valve insufficiency, mitral valve regurgitation, tricuspid valve regurgitation, hypertension and hyperlipidemia who presents for aortic
valve replacement + mitral valve repair. Patient known to the cardiothoracic surgery service with visit on 12/24/[address] Parker. Patient had a transthoracic echocardiogram on 11/06/2024 showing moderate�severe eccentric MR with severe aortic
stenosis with peak/mean gradients of 72/42 mmHg with an calculated CHARLIE of 0.7 cm�, with moderate AI. Also a small primarily anterior pericardial effusion without evidence of hemodynamic compromise. She underwent left heart catheterization on
12/12/2024 showing no significant coronary artery disease with mildly elevated filling pressures with PCWP: 18 mmHg, with preserved CI at 2.46. Patient is very active for her age and lives independently at [facility]. Cardiothoracic surgical
procedure was reviewed and patient agreed to an intervention. On 01/16/2025, she underwent surgical aortic valve replacement with simple mitral valve repair, aortoplasty with ascending aortic replacement with bovine pericardium and left atrial
appendage exclusion. There was no immediate complications, patient was transferred to the CVICU postoperatively for further care, and Sld Teacher services consulted for additional management/recommendations.
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
Impression:
#Aortic valve + mitral valve disease with severe AV stenosis and moderate to severe AI with moderate�severe MR s/p SAVR with 21 mm biological valve + simple mitral valve repair with 28 mm annuloplasty ring (POD #0)
#Severe + moderate-severe AI with atherosclerotic disease of aorta s/p aortoplasty with ascending aortic replacement with bovine pericardium with left atrial appendage exclusion with 35mm clip and extensive adhesiolysis due to dense
intrapericardial adhesions (POD #0)
#Acute anemia due to above
#Acute thrombocytopenia due to above
#History of hyperlipidemia
#History of hypertension
Plan:
Ventilator settings reviewed
FiO2 will be weaned to maintain SpO2 >90-94%
Minute ventilation will be adjusted
Arterial blood gases will be monitored
Spontaneous breathing trial will be attempted with hopeful extubation after anesthesia/sedation wear off
prn nebulized bronchodilators - not currently bronchospastic
Pulmonary artery catheter parameters will be followed
Pressors/antihypertensive/inotropes/diuretics will be provided as needed
Maintain MAP>65
Replete electrolytes with K>4, Mg>2
Monitor chest tube output (bilateral pleural chest tubes + mediastinal chest tubes x 2)
Monitor hemoglobin
Monitor platelet count and coags
Transfuse blood products as needed to maintain Hb>7g/dL, plt>50k (given post-operative status)
CT surgery managing chest tubes
Monitor blood sugar to maintain euglycemia with goal BG 110-140
Insulin drip per protocol
Aspiration precautions
VAP prevention protocol
DVT prophylaxis
Early nutrition
Early mobilization
Critical care statement: A total of 37 minutes of critical care time was provided for this patient today. This includes management of ventilator, spontaneous breathing trial, arterial blood gases, pressors, of unstable vital signs, evaluation of the
patient at bedside, reviewing the patient's pertinent medical records including radiographs, microbiology, laboratory evaluations, and discussion with primary team and critical care nursing.
[2025-01-16] MEDS: LR 250 ML IV ×4 (12:38→16:30)
--- NOTE | 2025-01-16 12:38 | PTCARENOTE ---
Patient received from [facility] @ 1238 intubated and sedated. Came out on Levo 4 Insulin 1, and precedex 0.5. Patients PERRLA and unresponsive. A-V wires pacing rate 70 A 15/8 V 20/16. BP labile, titrating levo see worklist for details. Radial and
pedal pulses present bilaterally. No edema noted. Endotracheal tube size 8 @ 23. POX 100% Vent settings 14/450/5/5 40%. Lungs clear anteriorly. CT x4. 2x mediastinal and a R & L pleural. Draining red WNL. Set to wall suction at -20, no
crepitus, tidaling, or air leaks noted. Bowel sounds hypoactive. Pardo draining clear yellow urine WNL. Sternal incision approximated with skin glue, BEAD WRAPPER. RIJ cordis w/ swan @50 CI 2.05 CO 3.20 PAP 28/13 CVP 8. Right [id number] PIV patent and
intact. Left radial A-line intact, armboard applied to maintain appropriate waveform. All line flushed, zeroed and level. 250LR bolus given per CT BLENDING TECHNICIAN Anaya.
[2025-01-16 12:55] LABS: Glucose - Point of Care 115 mg/dl (70-99)
[2025-01-16 13:01] LABS: B.E. 5.9 mmol/L; HCO3 29.7 mmol/L (21-28); Ionized Calcium 1.18 mMOL/L (1.15-1.33); O2 Saturation % 99.6 % (94-98); PCO2 39 mmHg (32-35); PO2 199 mmHg (83-108); Potassium 3.6 mMOL/L (3.5-5.1); Sodium 138 mMOL/L (136-145); pH 7.49 (7.35-7.45)
[2025-01-16 13:02] LABS: O2 Therapy VENT
[2025-01-16 13:05] LABS: Hematocrit 30.6 % (37.0-47.0); Hemoglobin 10.3 g/dL (12.0-16.0); Mixed Venous O2 Saturation 70.6 %; Platelet Count 84 10^3/uL (130-400)
[2025-01-16 13:12] LABS: Blood Urea Nitrogen 18 mg/dl (7-17); Estimated Creatinine Clearance 60 ml/min; Glucose 116 mg/dl (70-99); Magnesium 2.8 mg/dl (1.6-2.3)
[2025-01-16 13:21] LABS: PT 19.5 Sec (11.4-14.6)
[2025-01-16] MEDS: KCL 50 IV ×4 (13:22→18:34)
[2025-01-16] MEDS: ANCEF 10 IV ×2 (13:25)
[2025-01-16] MEDS: CRESTOR PO (13:26)
[2025-01-16] MEDS: THERAGRAN PO (13:26)
[2025-01-16] MEDS: NEURONTIN PO ×2 (13:26→17:17)
[2025-01-16] MEDS: NSS 500 IV (13:26)
[2025-01-16] MEDS: ZETIA PO (13:27)
[2025-01-16] MEDS: PRED FORTE 1% EYE DROPS 1 DROP RIGHT EYE (13:27)
[2025-01-16 14:03] LABS: Glucose - Point of Care 117 mg/dl (70-99)
--- NOTE | 2025-01-16 14:15 | PTCARENOTE ---
CI of 1.75 CT PATENT ATTORNEY Anaya notified. [address] LR [address] PATENT ATTORNEY Anaya.
[2025-01-16 15:02] LABS: Glucose - Point of Care 102 mg/dl (70-99)
[2025-01-16] MEDS: TYLENOL PO (15:14)
--- NOTE | 2025-01-16 15:25 | PTCARENOTE ---
CPAP trial initiated by respiratory. Patient drowsy and unable to consistently breath on their own. Changed settings back to SIMV
[2025-01-16] MEDS: ALBUMIN 5% 250 IV (15:33)
[2025-01-16 16:04] LABS: Glucose - Point of Care 100 mg/dl (70-99)
--- NOTE | 2025-01-16 16:20 | PTCARENOTE ---
Respiratory at bedside. CPAP trial started. Patient occasionally apnic but wakes up to alarm. Improved alertness over time.
[2025-01-16 17:03] LABS: Glucose - Point of Care 93 mg/dl (70-99)
[2025-01-16 17:07] LABS: B.E. - POC 5.4 mmol/L; Blood Urea Nitrogen - POC 19 mg/dl (3-120); Chloride - POC 106 mmol/L (96-111); Creatinine - POC 0.55 mg/dl (0.3-1.0); Glucose - POC 95 mg/dl (70-99); HCO3 - POC 31 mmol/L (21-28); Hematocrit - POC 29 % PCV (37-47); Hemodilution- POC Yes; Hemoglobin Calculated - POC 9.9; Ionized Calcium - POC 1.23 mmol/L (1.15-1.33); Lactate - POC 0.75 mmol/L (0.36-0.75); O2 Saturation %Calculated-POC 99.6 % (94-98); PCO2 - POC 52 mmHg (35-48); PO2 - POC 192 mmHg (83-108); Potassium - POC 3.4 mmol/L (3.5-5.1); Sodium - POC 147 mmol/L (136-145); Specimen Type - POC Arterial; pH - POC 7.39 (7.35-7.45)
[2025-01-16 17:16] LABS: B.E. 5.5 mmol/L; HCO3 29.9 mmol/L (21-28); Ionized Calcium 1.12 mMOL/L (1.15-1.33); O2 Saturation % 99.6 % (94-98); PCO2 42 mmHg (32-35); PO2 195 mmHg (83-108); Potassium 3.5 mMOL/L (3.5-5.1); pH 7.46 (7.35-7.45)
--- NOTE | 2025-01-16 17:25 | PTCARENOTE ---
Labs drawn. CT DESIGN ENGINEERING TECHNICIAN Anaya notified of CPAP ABG. Orders to extubate. Respiratory at bedside. Extubated at 1725 to 6L NC. POX 100%
[2025-01-16 17:28] LABS: Hematocrit 28.6 % (37.0-47.0); Hemoglobin 9.6 g/dL (12.0-16.0); Platelet Count 76 10^3/uL (130-400)
[2025-01-16] MEDS: CALCIUM GLUCONATE 100 IV (17:33)
[2025-01-16] MEDS: ZOFRAN 4 MG IV (18:13)
[2025-01-16] MEDS: OFIRMEV 100 IV (18:22)
[2025-01-16] MEDS: LOW STRENGTH ASPIRIN 81 MG PO (18:31)
--- NOTE | 2025-01-16 18:40 | PTCARENOTE ---
Labs reviewed. Aspirin given per CT NUTRITIONALIST Anaya.
[2025-01-16 18:57] LABS: Glucose - Point of Care 99 mg/dl (70-99)
--- NOTE | 2025-01-16 19:45 | SUR.OPER ---
Assumed care of the patient at 1900. Patient AOx3, drowsy, arouses to voice. A paced on the monitor, AV wires present connected to pacer box, heart tones audible, + pulses, no edema. Lungs CTA, on 6LNC, CTx4 present to -20 cm wall suction, no air
leak, tidaling, or crepitus noted, sanguinous drainage in the chamber. Abdomen SNT, BS normoactive, no c/o nausea at this time. Pardo present draining clear, yellow urine. MS incision CDI RADIOLOGY CLERK. RIJ cordis with Marilu @ 50, L radial art line, PIVx1 in
R forearm. On insulin and KVOs, see nursing worklist for additional interventions details.
[2025-01-16] MEDS: ANCEF 5 IV (20:41)
[2025-01-16 21:07] LABS: Glucose - Point of Care 106 mg/dl (70-99)
[2025-01-16] MEDS: TYLENOL 1000 MG PO (22:08)
[2025-01-16] MEDS: NEURONTIN 100 MG PO (22:09)
[2025-01-16] MEDS: SENOKOT-S 1 TABLET PO (22:09)
[2025-01-16 23:04] LABS: Glucose - Point of Care 89 mg/dl (70-99)
[2025-01-17] VITALS (22 sets, daily range): BP systolic 102–120; BP diastolic 36–61; PULSE 74; O2SAT 97–98; BMI 20.7
[2025-01-17 00:07] LABS: Glucose - Point of Care 99 mg/dl (70-99)
--- NOTE | 2025-01-17 00:15 | PTCARENOTE ---
Low UOP, MAPS low, Levo and Cardene titrated per protocol, CVPA aware. Given pain medication, sleeping between care, assessment otherwise unchanged.
[2025-01-17] MEDS: ROXICODONE 5 MG PO (00:19)
[2025-01-17 01:13] LABS: Glucose - Point of Care 104 mg/dl (70-99)
[2025-01-17] MEDS: ZOFRAN 4 MG IV (01:35)
[2025-01-17] MEDS: ALBUMIN 5% 250 IV (02:02)
[2025-01-17 02:08] LABS: Glucose - Point of Care 106 mg/dl (70-99)
[2025-01-17] MEDS: REGLAN 10 MG IV (03:08)
[2025-01-17 03:14] LABS: Glucose - Point of Care 102 mg/dl (70-99)
--- NOTE | 2025-01-17 03:34 | W.PN.CT ---
Today's Communication / Plan
-
-pod #1
-no issues overnight
-a-paced @ 74 bpm with intrinsic AV conduction overnight (underlying rhythm is sinus bradycardia 49 bpm with PACs. Of note, BP decreased when bradycardic)
-b/l tiny apical ptx on postop CXR - follow.
-per AT, SBP 90-110 overnight
-got 1 L of LR and 2 Albumins total
-CI 2.64, CO 4.12, SVR 912. Drips: Cardene 7.5, Insulin
-CT outputs: 2 pleur 130/225 (no air leak noted), 2 meds 85/170 in 12/24 hrs
-low UO - follow. Hopefully, will improve once allow higher BP
-labs pending
-current meds (ASA, Crestor, Zetia, Feosol, Vit C, Protonix). Held BB and Amio d/t bradycardia
-encourage IS, OOB
Assessment / Plan
-
- s/p Surgical aortic valve replacement [21 mm biological valve]; Simple mitral valve repair [28 mm annuloplasty ring]; Aortoplasty, ascending aortic replacement anteriorly with bovine pericardium; Left atrial appendage exclusion [35 mm device];
extensive adhesiolysis due to dense intrapericardial adhesions; Drainage of right and left pleural effusions by Dr. Parker on 01/16/25, pod #1
- Intraop CATARINO: LVEF preop was 60% with no significant wma. Following surgery, EF remained the same at 55 to 60% with no new regional wma. XIOMARA was verified to be free of any thrombus or debris preoperatively.
- Required AV pacing intraop
- Severe aortic valve stenosis
- Moderate to moderately severe aortic valve insufficiency
- Atherosclerotic disease of the aorta
- Hyperlipidemia
- Hypertension
- Functional/degenerative mitral valve insufficiency, moderately severe
- Mild to moderate tricuspid valve insufficiency
- Volume overload with 400 cc of right pleural effusion- drained intraop
- Acute postop blood loss anemia- s/p 1 pRBC
- Acute postop thrombocytopenia
- Acute postop atelectasis
- Acute postop tiny apical b/l PTX (no air leak on pleural CTs)
- Acute postop hypovolemia with subsequent hypervolemia
Discussed patient care with: Nursing and Care Team
Subjective
-
Date of Service: January 17, 2025
Objective Data
-
PT 19.5 Sec (11.4-14.6) H 01/16/25 12:47
INR 1.60 01/16/25 12:47
APTT 37.0 Sec (23.4-35.0) H 01/16/25 12:47
Vital Signs
Vital Signs
Temp Pulse Resp BP Pulse Ox
97.4 F 74 22 106/40 100
01/17/25 03:00 01/17/25 03:15 01/17/25 03:15 01/17/25 03:03 01/17/25 03:15
CT Intake/Output/Weight
01/16/25 01/16/25 01/17/25
06:59 18:59 06:59
Intake Total 1788.8 / 2433.95 645.15 / 2433.95
Output Total 665 / 1117 452 / 1117
Balance 1123.8 / 1316.95 193.15 / 1316.95
SaO2: 100
Physical Exam
-
General: Awake and AOx3
Cardiovascular: Regular rate & rhythm, No Murmurs and No Rub
Respiratory: Decreased Breath Sounds
Sternum: Stable
Incision: Clean, Dry and Intact
Extremities: No Edema (2+ DPs b/l)
Abdomen: soft, nondistended, decreased bowel sounds, nontender
Data Reviewed
-
Lab Results: Results Reviewed
Medications: Active Meds Reviewed
Chest X-Ray: Report Reviewed and Image Reviewed
ECG: Report Reviewed and Image Reviewed
[2025-01-17] MEDS: ANCEF 5 IV ×2 (04:09→11:38)
--- NOTE | 2025-01-17 04:23 | PTCARENOTE ---
Patient's MAPS in the 50's, Cardene maintained to keep SBP between 90-110 as ordered. Low UOP, CVPA aware. Patient with intermittent nausea, given Zofran and Reglan. Sleeping between care.
[2025-01-17 04:28] LABS: Hematocrit 28.2 % (37.0-47.0); Hemoglobin 9.4 g/dL (12.0-16.0); Mean Corp Hgb Conc. 33.3 g/dL (33.0-37.0); Mean Corpuscular Hgb 27.7 pg (27.0-31.0); Mean Corpuscular Volume 83.2 fL (81.0-99.0); Mean Platelet Volume 12.1 fL (7.4-10.4); Platelet Count 85 10^3/uL (130-400); Red Blood Cell Count 3.39 10^6/uL (4.20-5.40); Red Cell Dist. Width 14.6 % (11.5-14.5); White Blood Cell Count 13.4 10^3/uL (4.8-10.8)
[2025-01-17 05:07] LABS: Blood Urea Nitrogen 28 mg/dl (7-17); Calcium 8.6 mg/dl (8.4-10.2); Carbon Dioxide 25 mmol/L (22-30); Chloride 110 mmol/L (98-107); Estimated Creatinine Clearance 52 ml/min; Glucose 128 mg/dl (70-99); Magnesium 2.3 mg/dl (1.6-2.3); Potassium 4.1 mmol/L (3.5-5.1); Sodium 145 mmol/L (135-145); eGFR > 60.00
[2025-01-17 05:24] LABS: Glucose - Point of Care 118 mg/dl (70-99)
[2025-01-17] MEDS: TYLENOL 1000 MG PO ×3 (05:26→22:28)
[2025-01-17 07:24] LABS: Glucose - Point of Care 140 mg/dl (70-99)
--- NOTE | 2025-01-17 07:37 | W.PN.ANS.POP ---
Anesthesia Post Operative
- Anesthesia Post Op Note
Vital Signs Stable-See Nursing Note: Yes
Airway Patent: Yes
Adequate Pain Control: Yes
Change in Mental Status: No
Current Postoperative Nausea & Vomiting: No
Anesthesia Complications: No
General Anesthetic Recall: No
Unplanned Admission: No
Post Op Hydration Adequate: Yes
--- NOTE | 2025-01-17 08:01 | W.PN.CD ---
Today's Communication / Plan
-
trend tele, still pacing via temp wire
Impression / Plan
-
79 yo female with PMH of severe , moderate AR, moderate/severe MR, mild/moderate TR, HTN, white coat syndrome, hyperlipidemia is admitted following AVR and MV repair.
s/p bio-AVR and MV repair, with aortoplasty, ascending aortic replacement anteriorly with bovine pericardium, XIOMARA exclusion 01/16
-rhythm: A paced (temp wire)
-EF 60% on CATARINO
-ASA 81mg
HTN
-home meds: diltiazem, HCTZ
-trend as she recovers from OR: will likely replace diltiazem with metoprolol
Hyperlipidemia
-no CAD on cath
-cont crestor and zetia
Physical Exam
Vital Signs/Labs
Vital Signs
Temp Pulse Resp BP Pulse Ox
97.3 F 74 18 105/40 100
01/17/25 07:00 01/17/25 07:00 01/17/25 07:00 01/17/25 07:00 01/17/25 07:00
01/16/25 01/17/25 01/18/25
06:59 06:59 06:59
Actual Weight 52.1 kg 56.3 kg
01/17/25 04:17
01/17/25 04:17
PT 19.5 Sec (11.4-14.6) H 01/16/25 12:47
INR 1.60 01/16/25 12:47
APTT 37.0 Sec (23.4-35.0) H 01/16/25 12:47
Magnesium 2.3 mg/dl (1.6-2.3) 01/17/25 04:17
Physical Exam
Constitutional: No acute distress
EENT: Moist mucous membranes
Cardiovascular: Rhythm & rate is regular, Pedal edema is absent, JVD pressure is normal and Systolic murmur absent
Respiratory: Respiratory effort normal
Neuro/Psych: Oriented
Data Reviewed
-
Date of Service: January 17, 2025
EKG: Other (Tele: A paced)
Labs: Labs Reviewed by me
--- NOTE | 2025-01-17 08:21 | W.PN.INTV ---
Today's Communication / Plan
Recommendations
Up OOB as tolerated
Pain control
Goal BG 110�140
Encourage incentive spirometer use
Cardiac rehab consult
Patient being downgraded to CVICU�telemetry status. No additional recommendations at this time. Nurse Transition/Pulmonary service will now sign off. Please reconsult if there are any additional questions/concerns, or if patient's respiratory status
deteriorates.
Assessment
-
Assessment: 79-year-old female nontobacco smoker with a past medical history of aortic valve stenosis, aortic valve insufficiency, mitral valve regurgitation, tricuspid valve regurgitation, hypertension and hyperlipidemia who presents for aortic
valve replacement + mitral valve repair. Patient known to the cardiothoracic surgery service with visit on 12/24/[address] Parker. Patient had a transthoracic echocardiogram on 11/06/2024 showing moderate�severe eccentric MR with severe aortic
stenosis with peak/mean gradients of 72/42 mmHg with an calculated CHARLIE of 0.7 cm�, with moderate AI. Also a small primarily anterior pericardial effusion without evidence of hemodynamic compromise. She underwent left heart catheterization on
12/12/2024 showing no significant coronary artery disease with mildly elevated filling pressures with PCWP: 18 mmHg, with preserved CI at 2.46. Patient is very active for her age and lives independently at [facility]. Cardiothoracic surgical
procedure was reviewed and patient agreed to an intervention. On 01/16/2025, she underwent surgical aortic valve replacement with simple mitral valve repair, aortoplasty with ascending aortic replacement with bovine pericardium and left atrial
appendage exclusion. There was no immediate complications, patient was transferred to the CVICU postoperatively for further care, and Nurse Transition services consulted for additional management/recommendations.
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
Impression:
#Aortic valve + mitral valve disease with severe AV stenosis and moderate to severe AI with moderate�severe MR s/p SAVR with 21 mm biological valve + simple mitral valve repair with 28 mm annuloplasty ring (POD #1)
#Severe + moderate-severe AI with atherosclerotic disease of aorta s/p aortoplasty with ascending aortic replacement with bovine pericardium with left atrial appendage exclusion with 35mm clip and extensive adhesiolysis due to dense
intrapericardial adhesions (POD #1)
#Acute anemia due to above
#Acute thrombocytopenia due to above
#History of hyperlipidemia
#History of hypertension
Plan:
Patient successfully extubated on 01/16/2025, and is now currently on room air breathing comfortably saturating 100%
Maintain SpO2 >90-94%
prn nebulized bronchodilators - not currently bronchospastic
Encourage incentive spirometer use q1hr while awake
Pulmonary artery catheter parameters will be followed
Pressors/antihypertensive/inotropes/diuretics will be provided as needed
Maintain MAP>65
Replete electrolytes with K>4, Mg>2
Monitor chest tube output (bilateral pleural chest tubes + mediastinal chest tubes x 2)
Monitor hemoglobin
Monitor platelet count and coags
Transfuse blood products as needed to maintain Hb>7g/dL, plt>50k (given post-operative status)
CT surgery managing chest tubes
Monitor blood sugar to maintain euglycemia with goal BG 110-140
Insulin drip now DC'd - recommend to use ISS to maintain BG goal as above
Aspiration precautions
DVT prophylaxis
Early nutrition
Early mobilization
Patient being downgraded to CVICU�telemetry status. No additional recommendations at this time. Nurse Transition/Pulmonary service will now sign off. Thank you for allowing us to be involved in the care of this patient. Please reconsult if there are
any additional questions/concerns, or if patient's respiratory status deteriorates.
Total time spent today was 57 minutes for this encounter. Time includes reviewing laboratory test/imaging results, reviewing pertinent medical records, obtaining and reviewing medical history, performing an appropriate exam, ordering medications,
tests and procedures. Time also includes documentation of this encounter, coordinating patient care and communicating with other healthcare professionals. Total time does not include separately billed tests performed on this date of service.
Subjective Dataa
Subjective Data
Date of Service:
Date of Service: January 17, 2025
Chief Complaint: Nurse Transition Follow Up
Subjective:
Patient seen and evaluated today at bedside. Currently on room air breathing comfortably, sitting in chair in no acute distress. Heart rate 74, BP 108/46 and saturating 100%. Chest tubes x [address]. She feels well, denying ALDRIDGE, nausea,
vomiting, fevers or chills. Still has some mild chest discomfort.
Review of Systems
General: Other (Negative unless mentioned above)
Objective Data
Data Reviewed
Vital Signs / I&O / Oxygen:
Vital Signs
Temp Pulse Resp BP Pulse Ox
97.8 F 74 17 114/48 98
01/17/25 08:00 01/17/25 09:10 01/17/25 09:10 01/17/25 09:00 01/17/25 09:10
Intake and Output
01/16/25 01/17/25 01/18/25
06:59 06:59 06:59
Intake Total 2881.55 / 2915.25 66.4 / 66.4
Output Total 1262 / 1317 200 / 200
Balance 1619.55 / 1598.25 -133.6 / -133.6
SaO2 [CPAP] 100
SaO2 [SIMV] 100
SaO2 98
Nasal Cannula flow liters per 4
minute
Physical Exam
General: Respiratory Distress (negative), Chills (negative) and Sweats (negative)
HEENT: Normocephalic and Anicteric
Cardiovascular: S1-S2 and Peripheral Edema (negative)
Respiratory: Clear, Wheeze (negative), Crackles (negative), Rhonchi (negative) and Non-Labored Respirations
GI: Soft, Non Distended, Non Tender and Normal Bowel Sounds
Neurology: AO x 3 and Tremors (negative)
Skin: Warm, Dry, Cyanosis (negative) and Jaundice (negative)
Labs/Micro/Reports
Lab Data
01/17/25 04:17
01/17/25 04:17
Laboratory Results
01/16/25 01/16/25
12:47 17:10
PT 19.5 H
INR 1.60
APTT 37.0 H
pH 7.49 H 7.46 H
pCO2 39 H 42 H
pO2 199 H 195 H
HCO3 29.7 H 29.9 H
O2 Delivery Level Vent
--- NOTE | 2025-01-17 08:30 | PTCARENOTE ---
Resumed care of patient. Walking rounds completed. Pt assessed while she was lying in bed. Pt alert and oriented x4. Pt denies pain, nausea, and shortness of breath. BRICE with equal strength throughout. 100% A-paced on tele at 74bpm via epicardial AV
wires set to DDI /06/02. BP 116/46. Heart tones audible. Bilateral radial and DP pulses palpable. No edema noted. PA 30s/10s, CVP 11. POX 98% on RA. Lungs clear throughout. No cough noted. IS encouraged-750mL achieved. Right & Left pleural chest
tubes y-sited to 1 atrium to -20cm suction draining serosanguineous fluid. Mediastinal chest tubes x2 y-sited to 1 atrium to -20cm suction draining serosanguineous fluid. No air leaks, tidaling, crepitus. Abdomen soft, nontender. Hypoactive BS.
Tolerating clear liquid diet. Pardo intact draining fernando urine. Sternal incision approximated, CARD HANGER. Chest tube dressing changed, CDI. Right IJ cordis intact with swan floated to 50cm. Left radial tasha intact. Right forearm 18g PIV intact. See MAR
for medication administration. See worklist for complete nursing assessment. Plan of care reviewed and patient in agreement.
[2025-01-17] MEDS: SENOKOT-S 1 TABLET PO ×2 (08:43→20:29)
[2025-01-17] MEDS: BACTROBAN 2% OINTMENT 1 APPLIC NASAL ×2 (08:43→20:29)
[2025-01-17] MEDS: LASIX 20 MG IV (08:43)
[2025-01-17] MEDS: CRESTOR 40 MG PO (08:44)
[2025-01-17] MEDS: THERAGRAN 1 TABLET PO (08:44)
[2025-01-17] MEDS: MAGNESIUM OXIDE 500 MG PO ×2 (08:44→20:29)
[2025-01-17] MEDS: VITAMIN C 500 MG PO (08:44)
[2025-01-17] MEDS: ZETIA 10 MG PO (08:44)
[2025-01-17] MEDS: NEURONTIN 100 MG PO ×3 (08:45→22:28)
[2025-01-17] MEDS: LOW STRENGTH ASPIRIN 81 MG PO (08:45)
[2025-01-17] MEDS: PROTONIX 40 MG PO (08:45)
[2025-01-17] MEDS: LIDOCAINE 4% PATCH 1 PATCH TOPICAL (08:46)
[2025-01-17 09:11] LABS: Glucose - Point of Care 122 mg/dl (70-99)
--- NOTE | 2025-01-17 09:30 | PTCARENOTE ---
Natty d/nadeem per orders. Pt tolerated. Resting in bed with family at bedside.
[2025-01-17] MEDS: NSS IV (09:51)
[2025-01-17 11:13] LABS: Glucose - Point of Care 121 mg/dl (70-99)
--- NOTE | 2025-01-17 11:50 | PTCARENOTE ---
Pt reassessed. A-paced on tele with rate at 74bpm. BP 117/51. POX 98% on RA. Surgical sites stable. CT COLOR MATCHER notified of CT output. Orders to maintain pleural tubes today. Right IJ cordis, PIV intact.
[2025-01-17] MEDS: FERRLECIT 110 MG IV (13:26)
[2025-01-17 13:32] LABS: Glucose - Point of Care 115 mg/dl (70-99)
--- NOTE | 2025-01-17 14:51 | CM ---
CM following for DC planning needs.
Met w/ patient at bedside. Patient POD#1, reports that she is feeling well.
Reviewed DC plan w/ patient; plan is for home w/ [facility]itional [facility] RN. Pt. states that she has neighbors, who are supportive; family that reside in [place] and staff at OR that are going to help with housekeeping.
CM to follow.
--- NOTE | 2025-01-17 16:10 | PTCARENOTE ---
Pt reassessed. Remains A-paced at rate of 74. BP stable 102/61. POX 100% on RA. Surgical sites stable. CT output WNL. Clear fernando urine draining from vides. Pt denies pain, comfortable sitting up in the chair. IS encouraged.
--- NOTE | 2025-01-17 20:00 | PTCARENOTE ---
Assumed care of the patient at 1900. Patient in bed, AOx3, c/o mild pain, 2/10 in sternum. A paced on the monitor, rate 74, AVF wires present connected to temporary pacemaker, see worklist for settings; no edema, pulses palpable throughout. CTx4
with serosanguineous drainage to -20 cm wall suction, no air leak, tidaling, or crepitus noted, lungs dim at the bases on RA satting 96%+. BS present, abdomen SNT, endorses poor appetite at this time but tolerating PO intake with no nausea. Pardo
catheter present draining clear yellow urine. MS incision RIVET SORTER well approximated. RIJ cordis and PIVx1. See nursing worklist for additional intervention details. Assessment of needs ongoing.
[2025-01-18] VITALS (12 sets, daily range): BP systolic 102–132; BP diastolic 47–92; PULSE 74; O2SAT 95–100; BMI 20.5
--- NOTE | 2025-01-18 | PTCARENOTE ---
Patient sleeping between care, VSS, no changes in assessment.
--- NOTE | 2025-01-18 04:30 | PTCARENOTE ---
Patient reports sleeping soundly between care. VSS. Noted urine to be pinkish and cloudy in Pardo container. CVPA aware, no further needs assessed at this time.
[2025-01-18 04:50] LABS: Hematocrit 28.9 % (37.0-47.0); Hemoglobin 9.5 g/dL (12.0-16.0); Mean Corp Hgb Conc. 32.9 g/dL (33.0-37.0); Mean Corpuscular Hgb 27.9 pg (27.0-31.0); Mean Corpuscular Volume 84.8 fL (81.0-99.0); Mean Platelet Volume 12.3 fL (7.4-10.4); Platelet Count 97 10^3/uL (130-400); Red Blood Cell Count 3.41 10^6/uL (4.20-5.40); Red Cell Dist. Width 14.9 % (11.5-14.5); White Blood Cell Count 10.7 10^3/uL (4.8-10.8)
[2025-01-18 05:25] LABS: Blood Urea Nitrogen 41 mg/dl (7-17); Calcium 8.5 mg/dl (8.4-10.2); Carbon Dioxide 32 mmol/L (22-30); Chloride 101 mmol/L (98-107); Estimated Creatinine Clearance 56 ml/min; Glucose 126 mg/dl (70-99); Magnesium 2.4 mg/dl (1.6-2.3); Potassium 4.8 mmol/L (3.5-5.1); Sodium 136 mmol/L (135-145); eGFR > 60.00
[2025-01-18] MEDS: TYLENOL 1000 MG PO ×3 (05:45→22:13)
--- NOTE | 2025-01-18 07:29 | W.PN.CT ---
Today's Communication / Plan
-
-pod #2
-no issues overnight
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 Holding Amio and BB
-platelets are improving - 97K
-Hg stable - 9.5
-current meds (ASA, Crestor, Zetia, Feosol, Vit C, Protonix)
-encourage IS, OOB
Assessment / Plan
-
- s/p Surgical aortic valve replacement [21 mm biological valve]; Simple mitral valve repair [28 mm annuloplasty ring]; Aortoplasty, ascending aortic replacement anteriorly with bovine pericardium; Left atrial appendage exclusion [35 mm device];
extensive adhesiolysis due to dense intrapericardial adhesions; Drainage of right and left pleural effusions by Dr. Parker on 01/16/25, pod #2
- Intraop CATARINO: LVEF preop was 60% with no significant wma. Following surgery, EF remained the same at 55 to 60% with no new regional wma. XIOMARA was verified to be free of any thrombus or debris preoperatively.
- Required AV pacing intraop
- Severe aortic valve stenosis
- Moderate to moderately severe aortic valve insufficiency
- Atherosclerotic disease of the aorta
- Hyperlipidemia
- Hypertension
- Functional/degenerative mitral valve insufficiency, moderately severe
- Mild to moderate tricuspid valve insufficiency
- Volume overload with 400 cc of right pleural effusion- drained intraop
- Acute postop blood loss anemia- s/p 1 pRBC
- Acute postop thrombocytopenia
- Acute postop atelectasis
- Acute postop tiny apical b/l PTX (no air leak on pleural CTs)
- Acute postop hypovolemia with subsequent hypervolemia
Discussed patient care with: Nursing and Care Team
Subjective
-
Date of Service: January 18, 2025
Objective Data
-
Lab Results
01/18/25 04:34
01/18/25 04:34
PT 19.5 Sec (11.4-14.6) H 01/16/25 12:47
INR 1.60 01/16/25 12:47
APTT 37.0 Sec (23.4-35.0) H 01/16/25 12:47
Vital Signs
Vital Signs
Temp Pulse Resp BP Pulse Ox
97.9 F 74 18 132/52 98
01/18/25 04:18 01/18/25 06:00 01/18/25 04:18 01/18/25 04:18 01/18/25 05:00
CT Intake/Output/Weight
01/17/25 01/18/25 01/18/25
18:59 06:59 18:59
Intake Total 170.0 / 600.0 430 / 600.0
Output Total 950 / 1395 445 / 1395
Balance -780.0 / -795.0 -15 / -795.0
SaO2: 98
Physical Exam
-
General: Awake and AOx3
Cardiovascular: Regular rate & rhythm, No Murmurs and No Rub
Respiratory: Decreased Breath Sounds
Sternum: Stable
Incision: Clean, Dry and Intact
Extremities: No Edema (2+ DPs b/l)
Abdomen: soft, nondistended, decreased bowel sounds, nontender
Data Reviewed
-
Lab Results: Results Reviewed
Medications: Active Meds Reviewed
Chest X-Ray: Report Reviewed and Image Reviewed
ECG: Report Reviewed and Image Reviewed
[2025-01-18] MEDS: PROTONIX 40 MG PO (08:53)
[2025-01-18] MEDS: THERAGRAN 1 TABLET PO (08:53)
[2025-01-18] MEDS: CRESTOR 40 MG PO (08:53)
[2025-01-18] MEDS: VITAMIN C 500 MG PO (08:53)
[2025-01-18] MEDS: ZETIA 10 MG PO (08:53)
[2025-01-18] MEDS: MAGNESIUM OXIDE 500 MG PO (08:53)
[2025-01-18] MEDS: SENOKOT-S 1 TABLET PO ×2 (08:53→20:37)
[2025-01-18] MEDS: NEURONTIN 100 MG PO ×3 (08:54→22:13)
[2025-01-18] MEDS: LOW STRENGTH ASPIRIN 81 MG PO (08:54)
[2025-01-18] MEDS: LIDOCAINE 4% PATCH TOPICAL (08:54)
[2025-01-18] MEDS: BACTROBAN 2% OINTMENT 1 APPLIC NASAL ×2 (08:55→20:37)
--- NOTE | 2025-01-18 10:29 | W.PN.CD ---
Today's Communication / Plan
-
remains pacing dependent
Impression / Plan
-
79 yo female with PMH of severe , moderate AR, moderate/severe MR, mild/moderate TR, HTN, white coat syndrome, hyperlipidemia is admitted following AVR and MV repair.
s/p bio-AVR and MV repair, with aortoplasty, ascending aortic replacement anteriorly with bovine pericardium, XIOMARA exclusion 01/16
-rhythm: A paced (temp wire)
-EF 60% on CATARINO
-ASA 81mg
HTN
-home meds: diltiazem, HCTZ
-trend as she recovers from OR: holding AV john agents given need for pacing
Hyperlipidemia
-no CAD on cath
-cont crestor and zetia
Physical Exam
Vital Signs/Labs
Vital Signs
Temp Pulse Resp BP Pulse Ox
98.3 F 74 16 118/50 98
01/18/25 07:55 01/18/25 08:06 01/18/25 07:55 01/18/25 07:51 01/18/25 10:11
01/17/25 01/18/25 01/19/25
06:59 06:59 06:59
Actual Weight 124 lb 1.924 oz 123 lb 7.342 oz
01/18/25 04:34
01/18/25 04:34
PT 19.5 Sec (11.4-14.6) H 01/16/25 12:47
INR 1.60 01/16/25 12:47
APTT 37.0 Sec (23.4-35.0) H 01/16/25 12:47
Magnesium 2.4 mg/dl (1.6-2.3) H 01/18/25 04:34
Physical Exam
Constitutional: No acute distress and Comfortable
EENT: Anicteric
Cardiovascular: Rhythm & rate is regular and Pedal edema is absent
Respiratory: Respiratory effort normal and Lungs clear to auscul.
GI: Soft
Neuro/Psych: AO x 3
Data Reviewed
-
Date of Service: January 18, 2025
EKG: Tracing Personally Visualized and interpreted (paced )
Echo: Report Reviewed by me
Labs: Labs Reviewed by me
[2025-01-18] MEDS: LASIX 40 MG IV (11:33)
--- NOTE | 2025-01-18 11:46 | PTCARENOTE ---
Patient assisted back to bed x 1 assist. Chest tubes and vides catheter d/c'd as ordered, patient tolerated well. VS obtained, assessment stable. Patient resting comfortably, lunch ordered.
[2025-01-18] MEDS: NSS IV (12:05)
[2025-01-18] MEDS: FERRLECIT 110 MG IV (13:54)
--- NOTE | 2025-01-18 14:51 | CM ---
CM following for DC planning needs.
Met w/ patient and son, Mitchel at bedside.
Pt. reports that she is feeling well but is anticipating possible need for pacemaker.
Reviewed Cardiac Rehab notes, patient is progressing well.
Reviewed [place] plan for return [place] alone + family/ neighbor support + CT Transitional Care RN.
Will cont. to follow.
--- NOTE | 2025-01-18 16:02 | PTCARENOTE ---
VS obtained, assessment stable. Patient resting oob in chair, visitors bedside. Dinner ordered.
--- NOTE | 2025-01-18 20:00 | PTCARENOTE ---
Assumed care of the patient at 1900. Patient in bed, AOx3, pleasant, [place] at baseline. A paced rate 74 on the monitor, heart tones audible, no edema, pulses palpable, AV wires present connected to pacer box see worklist for settings. Lungs clear on
RA, satting 96%+, respirations shallow, IS encouraged. Normoactive bowel sounds, abdomen SNT, round, tolerating PO intake. Voiding in the toilet without difficulty, urine fernando. MS chest incision ORACLE FUSION DEVELOPER well approximated, CT dressing CDI. RIJ cordis
present with KVO, PIVx1 INT. Assist x1 OOB sternal precautions reinforced. Call barcenas within reach, assessment of needs ongoing.
--- NOTE | 2025-01-18 21:30 | PTCARENOTE ---
Patient with increased ectopy on telemetry round 2119. CVPA aware - had tested patient off of the pacer, continue to monitor rate and rhthym. Patient denies symptoms at time of ectopy. CHG bath and lead change performed, patient OOB to the bathroom
without issue, urine fernando. Call barcenas within reach, assessment of needs ongoing.
[2025-01-19] VITALS (7 sets, daily range): BP systolic 91–137; BP diastolic 41–121; BMI 20.3
--- NOTE | 2025-01-19 00:20 | PTCARENOTE ---
Patient sleeping comfortably. VSS, no acute changes.
--- NOTE | 2025-01-19 01:02 | W.PN.CT ---
Addendum entered and electronically signed by Malik Diaz MD 01/19/25 09:11:
I saw and examined the patient.
The PA's note was reviewed and I agree with the note.
Comment:
POD#3 s/p AVR, MVRp, ELAA, aortoplasty
Doing well. Looks good. Continued junctional rhythm vs. sinus MAZE - A-paced
Allow intrinsic rate today, will set backup A-pacing rate at 30; EP following
Follow small B/L PTX (L<R) - check CXR at noon
Maintain cordis
OOB/IS/ambulate
Original Note:
Today's Communication / Plan
-
Plan:
-No major issues overnight. Hemodynamically and neurologically intact
-Pt has been pacer dependent postop d/t CHB/junctional escape. Currently A-paced @ 70 bpm with junctional rhythm @ 60 bpm underneath pacer
-BB and Amiodarone are on hold. Cardiology and EP following
-Cont. current meds (ASA, Flomax, Proscar, Protonix, Mucinex, Synthroid, Crestor, Zetia)
-Senokot and magnesium placed on hold given c/o loose stool
-Replete K and calcium
-D/C cordis
-F/u cXR
-Monitor plts 76->85->97->78. Consider holding ASA today
-H/h stable @ 8.8/26.4, but did drop from 9.5/28.9 yesterday, will monitor
-Encourage use of IS
-OOB into chair/Ambulate
Assessment / Plan
-
- s/p Surgical aortic valve replacement [21 mm biological valve]; Simple mitral valve repair [28 mm annuloplasty ring]; Aortoplasty, ascending aortic replacement anteriorly with bovine pericardium; Left atrial appendage exclusion [35 mm device];
extensive adhesiolysis due to dense intrapericardial adhesions; Drainage of right and left pleural effusions by Dr. Parker on 01/16/25, pod #3
- Intraop CATARINO: LVEF preop was 60% with no significant wma. Following surgery, EF remained the same at 55 to 60% with no new regional wma. XIOMARA was verified to be free of any thrombus or debris preoperatively.
- Required AV pacing intraop
- Severe aortic valve stenosis
- Moderate to moderately severe aortic valve insufficiency
- Atherosclerotic disease of the aorta
- Hyperlipidemia
- Hypertension
- Functional/degenerative mitral valve insufficiency, moderately severe
- Mild to moderate tricuspid valve insufficiency
- Volume overload with 400 cc of right pleural effusion- drained intraop
- Acute postop blood loss anemia- s/p 1 pRBC
- Acute postop thrombocytopenia
- Acute postop atelectasis
- Acute postop CHB S/p temporary pacer dependent
- Acute postop tiny apical b/l PTX (no air leak on pleural CTs)
- Acute postop hypovolemia with subsequent hypervolemia
Discussed patient care with: Cardiology, Nursing, Respiratory Therapy, Pharmacy and Care Team
Subjective
-
Date of Service: January 19, 2025
Pt c/o mild incisional pain and loose BM, otherwise feel well. Senokot and magnesium placed on hold
Objective Data
-
PT 19.5 Sec (11.4-14.6) H 01/16/25 12:47
INR 1.60 01/16/25 12:47
APTT 37.0 Sec (23.4-35.0) H 01/16/25 12:47
Vital Signs
Vital Signs
Temp Pulse Resp BP Pulse Ox
98.1 F 74 18 119/41 95
01/19/25 00:06 01/19/25 00:06 01/19/25 00:06 01/19/25 00:06 01/19/25 00:06
CT Intake/Output/Weight
01/18/25 01/18/25 01/19/25
06:59 18:59 06:59
Intake Total 430 / 600.0 590 / 710 120 / 710
Output Total 445 / 1395 1360 / 1560 200 / 1560
Balance -15 / -795.0 -770 / -850 -80 / -850
SaO2: 95 (RA)
Physical Exam
-
General: Awake, Oriented and AOx3
Cardiovascular: Regular rate & rhythm (a-paced @ 70 bpm with jxn rhythm underneath), No Murmurs, No Rub and No Gallop
Respiratory: Decreased Breath Sounds (at bases, otherwise clear)
Sternum: Stable
Incision: Clean, Dry, Intact and Dressing Intact
Extremities: Other (+trace edema)
Data Reviewed
-
Lab Results: Results Reviewed
Medications: Active Meds Reviewed
Chest X-Ray: Report Reviewed and Image Reviewed
ECG: Report Reviewed and Image Reviewed
--- NOTE | 2025-01-19 01:49 | PTCARENOTE ---
Patient with BM x2, see worklist. Episode of bowel incontinence. Perineal care provided, patient made comfortable in bed.
--- NOTE | 2025-01-19 04:00 | PTCARENOTE ---
Patient with additional BM smear, able to void in the toilet, VSS, no c/o pain. Assessment of needs ongoing.
[2025-01-19 04:18] LABS: Hematocrit 26.4 % (37.0-47.0); Hemoglobin 8.8 g/dL (12.0-16.0); Mean Corp Hgb Conc. 33.3 g/dL (33.0-37.0); Mean Corpuscular Hgb 28.1 pg (27.0-31.0); Mean Corpuscular Volume 84.3 fL (81.0-99.0); Mean Platelet Volume 11.8 fL (7.4-10.4); Platelet Count 78 10^3/uL (130-400); Red Blood Cell Count 3.13 10^6/uL (4.20-5.40); Red Cell Dist. Width 14.7 % (11.5-14.5); White Blood Cell Count 6.8 10^3/uL (4.8-10.8)
[2025-01-19 04:34] LABS: Blood Urea Nitrogen 33 mg/dl (7-17); Calcium 7.9 mg/dl (8.4-10.2); Carbon Dioxide 34 mmol/L (22-30); Chloride 100 mmol/L (98-107); Estimated Creatinine Clearance 65 ml/min; Glucose 110 mg/dl (70-99); Magnesium 2.4 mg/dl (1.6-2.3); Potassium 3.7 mmol/L (3.5-5.1); Sodium 135 mmol/L (135-145); eGFR > 60.00
--- NOTE | 2025-01-19 06:00 | PTCARENOTE ---
V wire insulted due to damaged adapter rending it unable to be connected to pacer box. CTPA aware. See new pacer settings in the worklist.
[2025-01-19] MEDS: TYLENOL 1000 MG PO ×2 (06:05→21:28)
--- NOTE | 2025-01-19 08:00 | PTCARENOTE ---
back up rate on pacer changed to 30 and EKG completed. unknown rhythm on EKG. VSS. RA. HR 70s. no pain reported. CXR done bedside. will continue to monitor.
[2025-01-19] MEDS: CALCIUM GLUCONATE 100 IV (09:01)
[2025-01-19] MEDS: LIDOCAINE 4% PATCH 1 PATCH TOPICAL (09:06)
[2025-01-19] MEDS: NEURONTIN 100 MG PO ×3 (09:07→21:28)
[2025-01-19] MEDS: ZETIA 10 MG PO (09:08)
[2025-01-19] MEDS: LOW STRENGTH ASPIRIN 81 MG PO (09:08)
[2025-01-19] MEDS: CRESTOR 40 MG PO (09:08)
[2025-01-19] MEDS: PROTONIX 40 MG PO (09:08)
[2025-01-19] MEDS: VITAMIN C 500 MG PO (09:08)
[2025-01-19] MEDS: THERAGRAN 1 TABLET PO (09:08)
[2025-01-19] MEDS: LASIX 40 MG IV (09:09)
[2025-01-19] MEDS: KCL 20 MEQ PO (09:09)
[2025-01-19] MEDS: BACTROBAN 2% OINTMENT 1 APPLIC NASAL ×2 (09:10→20:07)
[2025-01-19] MEDS: PRED FORTE 1% EYE DROPS 1 DROP RIGHT EYE (09:11)
[2025-01-19] MEDS: NSS IV (14:13)
[2025-01-19] MEDS: TYLENOL PO (14:13)
[2025-01-19] MEDS: FERRLECIT 110 MG IV (14:13)
--- NOTE | 2025-01-19 16:00 | PTCARENOTE ---
walked halls independently. no additional change in assessment.
--- NOTE | 2025-01-19 20:45 | PTCARENOTE ---
Assumed care of pt from dayshift RN. Walking rounds completed. Pt AAOx3. BRICE. Up w/ stand-by assist. Pt w/ sinus arrhythmia on the monitor. Possibly junctional - but there are occasional p-waves. HR 70s. Temporary A/V wires insulated during day d/t
inappropriate pacer spikes. BP stable. Palpable pulses throughout. No edema noted. Pt 99% on RA. Lung sounds diminished B/L. Deep breathing and IS encouraged. Abdomen soft/nontender. +BS. +BM. No nausea. All surgical sites stable. Right IJ cordis
and PIV x1 intact. Pt positioned in bed. See worklist for full nursing assessment and interventions. Call barcenas within reach.
[2025-01-20] VITALS (8 sets, daily range): BP systolic 103–149; BP diastolic 39–60; BMI 20.1
--- NOTE | 2025-01-20 00:13 | PTCARENOTE ---
No acute change in assessment. Pt sinus arrhythmia / junctional w/ PACs on the tele monitor. HR 60s. BP stable. Pt is 97% on RA. All surgical sites stable. Pt resting in bed at this time. Call barcenas within reach.
--- NOTE | 2025-01-20 03:39 | W.PN.CT ---
Addendum entered and electronically signed by Malik Diaz MD 01/20/25 09:22:
I saw and examined the patient.
The PA's note was reviewed and I agree with the note.
Comment:
POD#4 s/p AVR, MVRp, Aortoplasty, ELAA
No major issues, remains junctional/sinus w/o bradycardia/pauses
Home vs. PPM tomorrow - D/W EP
Original Note:
Today's Communication / Plan
-
Plan:
-No major issues overnight. Hemodynamically and neurologically intact
-Pt no longer pacing or junctional, was in sinus bradycardia @ 59 bpm overnight, had occasional sinus with PAC's
-BB and Amiodarone are on hold. Cardiology and EP following
-Cont. current meds (ASA, Flomax, Proscar, Protonix, Mucinex, Synthroid, Crestor, Zetia)
-Replete K, 3.6
-D/C cordis
-CXR yesterday showed tiny right apical ptx, unchanged on my review this AM. F/U official report this AM
-Monitor plts 76->85->97->78-> 81
-H/h stable @ 8.8/26.4-> 8.6/26.1, will monitor
-Encourage use of IS
-OOB into chair/Ambulate
-Likely home tomorrow
Assessment / Plan
-
- s/p Surgical aortic valve replacement [21 mm biological valve]; Simple mitral valve repair [28 mm annuloplasty ring]; Aortoplasty, ascending aortic replacement anteriorly with bovine pericardium; Left atrial appendage exclusion [35 mm device];
extensive adhesiolysis due to dense intrapericardial adhesions; Drainage of right and left pleural effusions by Dr. Parker on 01/16/25, pod #4
- Intraop CATARINO: LVEF preop was 60% with no significant wma. Following surgery, EF remained the same at 55 to 60% with no new regional wma. XIOMARA was verified to be free of any thrombus or debris preoperatively.
- Required AV pacing intraop
- Severe aortic valve stenosis
- Moderate to moderately severe aortic valve insufficiency
- Atherosclerotic disease of the aorta
- Hyperlipidemia
- Hypertension
- Functional/degenerative mitral valve insufficiency, moderately severe
- Mild to moderate tricuspid valve insufficiency
- Volume overload with 400 cc of right pleural effusion- drained intraop
- Acute postop blood loss anemia- s/p 1 pRBC
- Acute postop thrombocytopenia
- Acute postop atelectasis
- Acute postop CHB S/p temporary pacer dependent
- Acute postop junctional rhythm
- Acute postop tiny apical b/l PTX (no air leak on pleural CTs)
- Acute postop hypovolemia with subsequent hypervolemia
Discussed patient care with: Cardiology, Nursing, Respiratory Therapy, Pharmacy and Care Team
Subjective
-
Date of Service: January 20, 2025
Pt c/o mild incisional pain, otherwise feels well
Objective Data
-
PT 19.5 Sec (11.4-14.6) H 01/16/25 12:47
INR 1.60 01/16/25 12:47
APTT 37.0 Sec (23.4-35.0) H 01/16/25 12:47
Vital Signs
Vital Signs
Temp Pulse Resp BP Pulse Ox
99 F 53 16 112/44 99
01/20/25 03:18 01/20/25 03:18 01/20/25 03:18 01/20/25 03:18 01/20/25 03:18
CT Intake/Output/Weight
01/19/25 01/19/25 01/20/25
06:59 18:59 06:59
Intake Total 120 / 710 20 / 100 80 / 100
Output Total 200 / 1560 1150 / 1350 200 / 1350
Balance -80 / -850 -1130 / -1250 -120 / -1250
SaO2: 99 (RA)
Physical Exam
-
General: Awake, Oriented and AOx3
Cardiovascular: Regular rate & rhythm, No Murmurs, No Rub and No Gallop
Respiratory: Decreased Breath Sounds (at bases, otherwise clear)
Sternum: Stable
Incision: Clean, Dry, Intact and Dressing Intact
Extremities: No Edema
Data Reviewed
-
Lab Results: Results Reviewed
Medications: Active Meds Reviewed
Chest X-Ray: Report Reviewed and Image Reviewed
ECG: Report Reviewed and Image Reviewed
[2025-01-20 03:42] LABS: Hematocrit 26.1 % (37.0-47.0); Hemoglobin 8.6 g/dL (12.0-16.0); Mean Corpuscular Hgb 27.9 pg (27.0-31.0); Mean Corpuscular Volume 84.7 fL (81.0-99.0); Mean Platelet Volume 11.8 fL (7.4-10.4); Platelet Count 81 10^3/uL (130-400); Red Blood Cell Count 3.08 10^6/uL (4.20-5.40); Red Cell Dist. Width 14.6 % (11.5-14.5); White Blood Cell Count 5.7 10^3/uL (4.8-10.8)
[2025-01-20 04:02] LABS: Blood Urea Nitrogen 31 mg/dl (7-17); Calcium 8.3 mg/dl (8.4-10.2); Carbon Dioxide 31 mmol/L (22-30); Chloride 100 mmol/L (98-107); Estimated Creatinine Clearance 64 ml/min; Glucose 103 mg/dl (70-99); Magnesium 2.1 mg/dl (1.6-2.3); Potassium 3.6 mmol/L (3.5-5.1); Sodium 135 mmol/L (135-145); eGFR > 60.00
--- NOTE | 2025-01-20 04:03 | PTCARENOTE ---
Assessment unchanged. Pt sinus tushar w/ PAC's and/or junctional. HR 50-70s. BP stable. Pt is 98% on RA. All surgical sites stable. Pt assisted OOB to void and then repositioned back into bed. Labs drawn and sent. EKG obtained. No c/o pain at this
time. Call barcenas within reach.
[2025-01-20] MEDS: TYLENOL 1000 MG PO ×2 (05:41→21:22)
[2025-01-20] MEDS: KCL 40 MEQ PO (05:42)
--- NOTE | 2025-01-20 08:00 | PTCARENOTE ---
resumed care of pt from previous RN. Walking rounds completed. Pt AAOx3. VSS. sinus arrhythmia, HR 70s. A/V wires insulated. + pulses throughout. No edema. 98% on RA. IS 1000. +BS. frequent BMs and gas. +appetite. All surgical sites stable.
independent in care. will continue ot monitor.
[2025-01-20] MEDS: BACTROBAN 2% OINTMENT 1 APPLIC NASAL (08:46)
[2025-01-20] MEDS: THERAGRAN 1 TABLET PO (08:46)
[2025-01-20] MEDS: VITAMIN C 500 MG PO (08:46)
[2025-01-20] MEDS: MAGNESIUM OXIDE 500 MG PO ×2 (08:46→20:12)
[2025-01-20] MEDS: NEURONTIN 100 MG PO ×2 (08:47→21:22)
[2025-01-20] MEDS: ZETIA 10 MG PO (08:47)
[2025-01-20] MEDS: PROTONIX 40 MG PO (08:47)
[2025-01-20] MEDS: CRESTOR 40 MG PO (08:47)
[2025-01-20] MEDS: LOW STRENGTH ASPIRIN 81 MG PO (08:47)
[2025-01-20] MEDS: LIDOCAINE 4% PATCH TOPICAL (08:48)
[2025-01-20] MEDS: NSS 500 IV (11:43)
--- NOTE | 2025-01-20 14:00 | PTCARENOTE ---
Katina d/c'd without issue. will continue to monitor. remains in SR with PACs
[2025-01-20] MEDS: TYLENOL PO (14:04)
--- NOTE | 2025-01-20 17:29 | PTCARENOTE ---
assessment unchanged from previous. continues walking halls independently. remains in same rhythm.
[2025-01-20] MEDS: NEURONTIN PO (18:29)
--- NOTE | 2025-01-20 20:30 | PTCARENOTE ---
Assumed care of pt from dayshift RN. Walking rounds completed. Pt AAOx3. Pt appears accelerated junctional on the tele monitor. HR 80s. Temporary epicardial A/V wires insulated. BP stable. Palpable pulses throughout. No edema. Pt 99% on RA. Lung
sounds audible. Deep breathing and IS encouraged. Abdomen soft/nontender. +BS. Pt voiding w/o issue. All surgical sites stable. CT dressing changed. Right forearm PIV intact. No c/o pain at this time. Pt up ad maria d to the bathroom. See worklist for
full nursing assessment and interventions. Call barcenas within reach.
[2025-01-20] MEDS: CALCIUM GLUCONATE 100 IV (22:01)
--- NOTE | 2025-01-21 00:11 | PTCARENOTE ---
Assessment unchanged. VSS. Call barcenas within reach.
[2025-01-21 03:22] VITALS: BP 126/52
--- NOTE | 2025-01-21 03:28 | W.PN.CT ---
Today's Communication / Plan
-
Plan:
-No major issues overnight. Hemodynamically and neurologically intact
-Pt no longer pacing or junctional, currently in NSR @ 67 bpm with intermittent PAC's
-BB and Amiodarone are on hold. Cardiology and EP following
-Does not appear to warrant PPM placement, currently NPO, for repeat echo today as well
-Cont. current meds (ASA, Flomax, Proscar, Protonix, Mucinex, Synthroid, Crestor, Zetia)
-F/U 2-view cxr, has small bilateral apical pneumothoraces, > on R
-Repeat echo to reassess valves
-Monitor plts 76->85->97->78-> 81->114
-H/h stable @ 8.8/26
-Encourage use of IS
-OOB into chair/Ambulate
-Likely home today
Assessment / Plan
-
- s/p Surgical aortic valve replacement [21 mm biological valve]; Simple mitral valve repair [28 mm annuloplasty ring]; Aortoplasty, ascending aortic replacement anteriorly with bovine pericardium; Left atrial appendage exclusion [35 mm device];
extensive adhesiolysis due to dense intrapericardial adhesions; Drainage of right and left pleural effusions by Dr. Parker on 01/16/25, pod #5
- Intraop CATARINO: LVEF preop was 60% with no significant wma. Following surgery, EF remained the same at 55 to 60% with no new regional wma. XIOMARA was verified to be free of any thrombus or debris preoperatively.
- Required AV pacing intraop
- Severe aortic valve stenosis
- Moderate to moderately severe aortic valve insufficiency
- Atherosclerotic disease of the aorta
- Hyperlipidemia
- Hypertension
- Functional/degenerative mitral valve insufficiency, moderately severe
- Mild to moderate tricuspid valve insufficiency
- Volume overload with 400 cc of right pleural effusion- drained intraop
- Acute postop blood loss anemia- s/p 1 pRBC
- Acute postop thrombocytopenia
- Acute postop atelectasis
- Acute postop CHB S/p temporary pacer dependent
- Acute postop junctional rhythm
- Acute postop tiny apical b/l PTX (no air leak on pleural CTs)
- Acute postop hypovolemia with subsequent hypervolemia
Discussed patient care with: Cardiology, Nursing, Respiratory Therapy, Pharmacy and Care Team
Subjective
-
Date of Service: January 21, 2025
Pt c/o mild incsiional pain, otherwise feels well
Objective Data
-
PT 19.5 Sec (11.4-14.6) H 01/16/25 12:47
INR 1.60 01/16/25 12:47
APTT 37.0 Sec (23.4-35.0) H 01/16/25 12:47
Vital Signs
Vital Signs
Temp Pulse Resp BP Pulse Ox
97.6 F 71 16 126/52 99
01/21/25 03:22 01/21/25 03:22 01/21/25 03:22 01/21/25 03:22 01/21/25 03:22
CT Intake/Output/Weight
01/20/25 01/20/25 01/21/25
06:59 18:59 06:59
Intake Total 80 / 100 500 / 500
Output Total 350 / 1500 250 / 1350 1100 / 1350
Balance -270 / -1400 250 / -850 -1100 / -850
SaO2: 99 (RA)
Physical Exam
-
General: Awake, Oriented and AOx3
Cardiovascular: Regular rate & rhythm (NSR ), No Murmurs, No Rub and No Gallop
Respiratory: Decreased Breath Sounds (at bases, otherwise clear)
Sternum: Stable
Incision: Clean, Dry, Intact and Dressing Intact
Extremities: No Edema
Data Reviewed
-
Lab Results: Results Reviewed
Medications: Active Meds Reviewed
Chest X-Ray: Report Reviewed and Image Reviewed
ECG: Report Reviewed and Image Reviewed
[2025-01-21 03:37] LABS: Hemoglobin 8.8 g/dL (12.0-16.0); Mean Corp Hgb Conc. 33.8 g/dL (33.0-37.0); Mean Corpuscular Hgb 28.5 pg (27.0-31.0); Mean Corpuscular Volume 84.1 fL (81.0-99.0); Mean Platelet Volume 10.4 fL (7.4-10.4); Platelet Count 114 10^3/uL (130-400); Red Blood Cell Count 3.09 10^6/uL (4.20-5.40); Red Cell Dist. Width 14.6 % (11.5-14.5)
--- NOTE | 2025-01-21 03:56 | PTCARENOTE ---
Pt SR w/ PACs on the tele monitor. BP stable. 99% on RA. Labs drawn and sent. EKG obtained. Pt assisted OOB to void then repositioned back into bed. NPO since midnight for possible PPM placement. Call barcenas within reach.
[2025-01-21 03:59] LABS: Blood Urea Nitrogen 22 mg/dl (7-17); Calcium 8.7 mg/dl (8.4-10.2); Carbon Dioxide 28 mmol/L (22-30); Chloride 103 mmol/L (98-107); Estimated Creatinine Clearance 64 ml/min; Glucose 107 mg/dl (70-99); Potassium 3.7 mmol/L (3.5-5.1); Sodium 137 mmol/L (135-145); eGFR > 60.00
[2025-01-21] MEDS: KCL 40 MEQ PO (05:02)
[2025-01-21] MEDS: TYLENOL 1000 MG PO (05:03)
[2025-01-21 05:08] VITALS: BMI 20.1
[2025-01-21 07:42] VITALS: BP 109/55
--- NOTE | 2025-01-21 07:50 | PTCARENOTE ---
Patient received from upholstery estimator resting oob in chair, AAO X 3, denies pain. NSR via cm, SaO2 @ 97% on RA. All procedural sites stable. A+V temp pacing wires, insulated to chest wall. Patient NPO for possible procedure, plan of care discussed. See
work list for full assessment and interventions performed.
[2025-01-21] MEDS: NSS IV (07:52)
[2025-01-21] MEDS: LIDOCAINE 4% PATCH TOPICAL (07:52)
--- NOTE | 2025-01-21 08:36 | W.PN.CD ---
Today's Communication / Plan
-
echo today
now back on sinus
avoid AV john agents
will discharge with [facility] (to picking machine operator from office; I coordinated this)
Impression / Plan
-
79 yo female with PMH of severe , moderate AR, moderate/severe MR, mild/moderate TR, HTN, white coat syndrome, hyperlipidemia is admitted following AVR and MV repair.
s/p bio-AVR and MV repair, with aortoplasty, ascending aortic replacement anteriorly with bovine pericardium, XIOMARA exclusion 01/16
-rhythm: sinus
-EF 60% on CATARINO
-echo today
-ASA 81mg
Rhythm
-sinus node dysfunction, junctional rhythm post op
-now back on sinus
-avoid AV john agents
-will discharge with [facility] (to picking machine operator from office; I coordinated this)
HTN
-stop home diltiazem due to bradycardia
Hyperlipidemia
-no CAD on cath
-cont crestor and zetia
Physical Exam
Vital Signs/Labs
Vital Signs
Temp Pulse Resp BP Pulse Ox
98 F 71 17 109/55 97
01/21/25 07:44 01/21/25 07:44 01/21/25 07:44 01/21/25 07:42 01/21/25 07:45
01/20/25 01/21/25 01/22/25
06:59 06:59 06:59
Actual Weight 54.9 kg 54.8 kg
01/21/25 03:27
01/21/25 03:27
PT 19.5 Sec (11.4-14.6) H 01/16/25 12:47
INR 1.60 01/16/25 12:47
APTT 37.0 Sec (23.4-35.0) H 01/16/25 12:47
Magnesium 2.0 mg/dl (1.6-2.3) 01/21/25 03:27
Physical Exam
Constitutional: No acute distress and Comfortable
EENT: Moist mucous membranes
Cardiovascular: Rhythm & rate is regular, Pedal edema is absent, JVD pressure is normal and Systolic murmur absent
Respiratory: Respiratory effort normal and Lungs clear to auscul.
Neuro/Psych: AO x 3
Data Reviewed
-
Date of Service: January 21, 2025
EKG: Other (Tele: SR 70s)
Labs: Labs Reviewed by me
--- NOTE | 2025-01-21 08:38 | W.PN.UPDATE ---
Update Note
Progress Note Update
Patient maintained sinus rhythm throughout the night. Spoke with Dr. Bird, he feels pacer is not needed. He will order a Rhythm Star monitor for discharge (later today). 2 epicardial atrial and 1 bipolar ventricular wire were cut at skin level.
Patient is scheduled for predischarge echocardiogram today.
--- NOTE | 2025-01-21 08:44 | W.DCSUMMARY ---
Discharge Summary
Discharge Data
Date of Admission: 01/16/25
Date of Discharge: 01/21/25
-
Pending Results: No
Hospital Course
Primary care physician: Brian Wharton
Outpatient retail administrative assistant: Rafa Bird
Inpatient consultants: [facility] Cardiology, pulmonary roughener
Procedures:
1. Aortic valve replacement, mitral valve repair, left atrial clip
Primary Diagnosis:
1. Severe aortic stenosis, severe mitral regurgitation
Secondary Diagnoses:
1. Hypertension
2. Hyperlipidemia
3.Volume overload with 400 cc of right pleural effusion- drained intraop
4. Acute postop blood loss anemia- s/p 1 pRBC
5. Acute postop thrombocytopenia
6. Acute postop CHB S/p temporary pacer dependent
7. Acute postop junctional rhythm
8. Acute postop tiny apical b/l PTX (no air leak on pleural CTs)
9. Acute postop hypovolemia with subsequent hypervolemia
HPI: 79-year-old female was electively admitted on 01/16/2025 for aortic valve replacement, mitral valve repair and left atrial clip due to severe aortic stenosis and severe mitral regurgitation.
Hospital course: Patient underwent an aortic valve replacement #21 Inspiris tissue valve, mitral valve repair #28 mm annuloplasty ring, left atrial appendage exclusion #3mm clip and aortoplasty by Dr. Med Parker. Patient received 1 PRBC IntraOp.
Postprocedure CATARINO reported EF of 65%, no AI, AV gradient 17/10 mmHg, mitral valve gradient 4/2 mmHg. Patient returned to CVICU on Levophed, insulin, and Precedex. She required 1 L of lactated Ringer's for hypovolemia +250 mL of albumin. She
remained pacer dependent due to underlying complete heart block. Patient was extubated the day of surgery. On postoperative day 1, Amanda-Anastacio catheter was removed and patient noted to be in junctional rhythm with periods of sinus bradycardia
requiring a pacing. Beta-zak and amiodarone were held. 2 mediastinal and great/left pleural chest tubes and Pardo were discontinued on postoperative day #2. Patient was diuresed with IV Lasix with good response. On postoperative day #3, a
small right apical pneumothorax was noted. Patient remained junctional rhythm under atrial pacing and rate was decreased to 30 to allow transient rhythm 12 off. On postoperative day #4, patient did have more periods of sinus rhythm while active
and was encouraged to increase ambulation. The right IJ cordis was removed. Small right apical pneumothorax persists on chest x-ray. Patient was maintained n.p.o. for possible pacer implant. On postoperative day #5, patient had maintained sinus
rhythm throughout the night and pacemaker insertion canceled by cardiology. A Rhythm Star monitor was ordered by cardiology for discharge. 2 atrial and 1 bipolar lead were clipped at skin level. No rate lowering drugs were ordered on discharge.
SR 70s, SBP 109-126mmHg, Hemoglobin stable at 8.8 and creatinine 0.9 on the day of discharge. Predischarge TTE reported ERF 55-60%, AV mean gradient 29/17mmHg, tr AI, MV mean gradient 6-7mmHg, no MR.
Home medication changes:
Stop:
Diltiazem, hydrochlorothiazide, potassium
Discharge Plan
-
Patient Disposition: Home (Routine Discharge)
Discharge Diagnosis/Procedures: 01/16 mitral and tricuspid repair, MAZE, left atrial appendage clip
Condition: Good
Diet: Low Cholesterol and Low Sodium
Activity: No strenuous activity
Driving Restrictions: Not until seen by your Dr
Bathing Restrictions: OK to Shower
Blood Work: CBC, BMP in 1 week
Others Tests: CXR in 1 week
Other Services: Cardiac Rehab
Specialty Instructions: Weigh Daily- Call MD for wt gain/loss 3 lbs overnight/5 lbs in 1 week
Referrals:
CT Transitional Care Nurse [Outside] (The Cardiothoracic Transitional Care Nurse will call you to set up a visit in 1-2 days.)
[facility] Cardiac Rehab [Outside] - 02/22/25 1:00 pm
(Cardiac Rehab Orientation appointment is on Tuesday02/22/25 at 1pm
The Cardiac Rehab gym is located on the first floor of the [facility].)
Vida Bond CRNP [Specified Professional Personl] - 02/27/25 10:40 am
Harris Wharton MD [Family Provider] -
Med Parekr MD [Active] - 02/19/25 2:00 pm
Prescriptions:
New
acetaminophen 325 mg Tablet
650 mg PO Q4HPRN PRN (Reason: mild pain,headache,temp >101F ) Qty: 0 0RF
aspirin 81 mg Tablet,Chewable
81 mg PO DAILY Qty: 0 0RF
oxycodone 5 mg Tablet
5 mg PO Q4HPRN PRN (Reason: severe pain) Qty: 10 0RF
gabapentin 100 mg Capsule
100 mg PO TID Qty: 30 0RF
Continued
prednisolone acetate 1 % Drops,Suspension
1 drp RIGHT EYE Q48H
ezetimibe 10 mg Tablet
10 mg PO DAILY
rosuvastatin 40 mg Tablet
40 mg PO DAILY
calcium carbonate [Calcium 600] 600 mg calcium (1,500 mg) Tablet
600 mg PO DAILY
therapeutic multivitamin Tablet
1 tab PO DAILY
Systane (PF) 0.4-0.3 % Dropperette
1 drp OPHTHALMIC (EYE) 6XD PRN (Reason: dry eyes)
prednisolone acetate 1 % Drops,Suspension
1 drp OPHTHALMIC (EYE) DAILY
Discontinued
diltiazem HCl 120 mg Capsule,Extended Release 24 Hr
120 mg PO DAILY
hydrochlorothiazide 25 mg Tablet
25 mg PO DAILY
potassium chloride 20 mEq Tablet Extended Release
20 meq PO DAILY
Discharge Orders:
Discharge Patient (As Directed); Ordered 01/21/25
Ordered By: Fawn Montalvo
Care Plan Goals
Care Plan Goals:
Problem: Readiness for enhanced knowledge related to diagnosis and treatment plan
Goal: Understand your diagnosis and treatment plan needs, including medications if applicable.
Instructions: Know your diagnosis, underlying causes and treatment plan options, including medications if applicable. Consult with your health care team to learn about your diagnosis and treatment plan, including medications if applicable.
Discharge Date and Time
Print Language: HEBREW
[2025-01-21] MEDS: THERAGRAN 1 TABLET PO (08:54)
[2025-01-21] MEDS: CRESTOR 40 MG PO (08:54)
[2025-01-21] MEDS: PRED FORTE 1% EYE DROPS 1 DROP RIGHT EYE (08:54)
[2025-01-21] MEDS: LOW STRENGTH ASPIRIN 81 MG PO (08:54)
[2025-01-21] MEDS: NEURONTIN 100 MG PO (08:54)
[2025-01-21] MEDS: MAGNESIUM OXIDE 500 MG PO (08:54)
[2025-01-21] MEDS: ZETIA 10 MG PO (08:54)
[2025-01-21] MEDS: VITAMIN C 500 MG PO (08:54)
[2025-01-21] MEDS: PROTONIX 40 MG PO (08:54)
[2025-01-21 10:31] VITALS: BP 140/53
[2025-01-21 10:38] VITALS: BP 147/60
[2025-01-21 10:46] VITALS: BP 140/53; BP 147/60; PULSE 82; O2SAT 98; O2SAT 99
[2025-01-21 11:50] VITALS: BP 120/45
--- NOTE | 2025-01-21 11:59 | CM ---
Reviewed chart. Met with Mrs. Hartmann to review discharge plans. She states she is feeling well and maybe able to go home soon. She states prior to admission she resides alone in the independent section of [facility]. She
states she has a first floor living arrangement, without any steps to enter. She states prior to admission she was independent with ambulation and adls. She states she has been walking here. She ambulated 450 feet today. She states her son
resides in [place] and her [id number] is coming to transport her home. She states she has a call bed to call the nurse if needed. We reviewed a home visit by the Transitional Care Nurse. she is agreeable to a home visit. . Medical work-up
in progress. The discharge plan is to return home with a home visit by the Transitional Care Nurse when medically stable.
--- NOTE | 2025-01-21 12:03 | PTCARENOTE ---
VS obtained, assessment stable. Patient for d/c home.
--- NOTE | 2025-01-21 13:38 | PTCARENOTE ---
Discharge instructions thoroughly reviewed w/patient and DIL, all questions answered. Patient aware she is to go directly to cardiology office for monitor placement. Patient and all belongings transported to waiting vehicle for d/c home.
== END 2025-01-21 13:57 | disposition home or self-care (01) | DRG 220 ==
LOC: CVICU 04:59
PROVIDERS: Nurse Practitioner; Physician Assistant Medical; ADMITTING PHYSICIAN Thoracic Surgery (Cardiothoracic Vascular Surgery); CONSULT PHYSICIAN Internal Medicine Critical Care Medicine; FAMILY PHYSICIAN Internal Medicine Geriatric Medicine
PROC: 02RF08Z Replacement of Aortic Valve with Zooplastic Tissue, Open Approach (ICD-10-PCS; 2025-01-16)
PROC: 02UG0JZ Supplement Mitral Valve with Synthetic Substitute, Open Approach (ICD-10-PCS; 2025-01-16)
PROC: 5A1221Z Performance of Cardiac Output, Continuous (ICD-10-PCS; 2025-01-16)
PROC: 02L70CK Occlusion of Left Atrial Appendage with Extraluminal Device, Open Approach (ICD-10-PCS; 2025-01-16)
PROC: 30233N1 Transfusion of Nonautologous Red Blood Cells into Peripheral Vein, Percutaneous Approach (ICD-10-PCS; 2025-01-16)
PROC: 0B9N0ZZ Drainage of Right Pleura, Open Approach (ICD-10-PCS; 2025-01-16)
PROC: 02RX08Z Replacement of Thoracic Aorta, Ascending/Arch with Zooplastic Tissue, Open Approach (ICD-10-PCS; 2025-01-16)
PROC: 02NN0ZZ Release Pericardium, Open Approach (ICD-10-PCS; 2025-01-16)
PROC: B24BZZ4 Ultrasonography of Heart with Aorta, Transesophageal (ICD-10-PCS; 2025-01-16)
PROC: 0B9P0ZZ Drainage of Left Pleura, Open Approach (ICD-10-PCS; 2025-01-16)
DX: I35.2 Nonrheumatic aortic (valve) stenosis with insufficiency (principal); D62 Acute posthemorrhagic anemia; I31.0 Chronic adhesive pericarditis; J91.8 Pleural effusion in other conditions classified elsewhere; I44.2 Atrioventricular block, complete; J93.83 Other pneumothorax; J98.11 Atelectasis; I34.0 Nonrheumatic mitral (valve) insufficiency; I36.1 Nonrheumatic tricuspid (valve) insufficiency; E78.5 Hyperlipidemia, unspecified; I10 Essential (primary) hypertension; I70.0 Atherosclerosis of aorta; D69.59 Other secondary thrombocytopenia; Z79.52 Long term (current) use of systemic steroids; Z79.899 Other long term (current) drug therapy; E87.70 Fluid overload, unspecified; E86.1 Hypovolemia; R00.1 Bradycardia, unspecified
CPT/HCPCS: 88305; 88311; 93308; 36415; 71045; 71046; 80048; 80053; 81003; 81015; 82248; 82330; 82565; 82805; 82810; 82947; 82962; 83036; 83735; 84132; 84302; 84520; 85014; 85018; 85025; 85027; 85049; 85610; 85730; 86850; 86900; 86901; 86920; 87070; 93005; 93312; 93320; 93321; 93325; 93880; 94002; C1768; J2916; P9016; P9045

== ENCOUNTER → 2025-01-28 11:10 | Outpatient (REF) | payer MEDICARE, SELFPAY | LOC: RAD 11:10 | PROVIDERS: ATTENDING PHYSICIAN Nurse Practitioner; FAMILY PHYSICIAN Internal Medicine Geriatric Medicine | DX: I35.0 Nonrheumatic aortic (valve) stenosis (principal) | CPT/HCPCS: 71046 ==

== ENCOUNTER → 2025-01-29 13:14 | Outpatient (REF) | payer MEDICARE, SELFPAY ==
[2025-01-29 13:51] LABS: % Eosinophils 0.8 % (0-6); % Immature Granulocytes 0.4 % (0-0.5); % Lymphocytes 15.3 % (20.5-51.1); % Monocytes 4.1 % (1.7-9.3); % Neutrophils 78.4 % (42.2-75.2); Absolute Basophils 0.1 10^3/uL (0-0.2); Absolute Lymphocytes 0.8 10^3/uL (1.2-3.4); Absolute Monocytes 0.2 10^3/uL (0.1-0.6); Absolute Neutrophils 4.1 10^3/uL (1.4-6.5); Mean Corp Hgb Conc. 31.4 g/dL (33.0-37.0); Mean Corpuscular Hgb 28.5 pg (27.0-31.0); Mean Corpuscular Volume 90.7 fL (81.0-99.0); Mean Platelet Volume 10.2 fL (7.4-10.4); Nucleated Red Blood Cells % 0 %; Platelet Count 248 10^3/uL (130-400); Red Blood Cell Count 3.86 10^6/uL (4.20-5.40); Red Cell Dist. Width 17.4 % (11.5-14.5); White Blood Cell Count 5.2 10^3/uL (4.8-10.8)
[2025-01-29 14:10] LABS: Blood Urea Nitrogen 15 mg/dl (7-17); Calcium 9.1 mg/dl (8.4-10.2); Carbon Dioxide 30 mmol/L (22-30); Chloride 104 mmol/L (98-107); Glucose 152 mg/dl (70-99); Sodium 138 mmol/L (135-145); eGFR > 60.00
== END ==
LOC: OLABPV 13:14
PROVIDERS: ATTENDING PHYSICIAN Nurse Practitioner
DX: D64.9 Anemia, unspecified (principal); E87.6 Hypokalemia
CPT/HCPCS: 36415; 80048; 85025

== ENCOUNTER 2025-02-05 17:01 | Observation (INO) | payer MEDICARE, SELFPAY ==
[2025-02-05] VITALS (10 sets, daily range): BP systolic 76–184; BP diastolic 38–87; PULSE 113–119; BMI 20.4; BMI 18.2
--- NOTE | 2025-02-05 12:16 | ED.GENMED ---
History of Present Illness
General
Chief Complaint: Breathing Problem
Source: patient
Exam Limitations: none
Time Seen by Provider: 02/05/25 12:15
Nursing documentation reviewed up to this point in time: agreed with
History of Present Illness
History of Present Illness:
79-year-old female from [facility] with history of HTN, HLD, pacemaker, admitted 01/16 to 01/21/2025 for aortic valve replacement 01/12/25, presents for sudden onset fatigue, FERRELL past 2 days.
Went to PCP Dr. Wharton for f/u and he was concerned 'about my leg swelling and shortness of breath.'
Pt denies fever/ chest pain,n/v/d/c. Has been eating and drinking well. Does not feel SOB at rest.
New medications since that admission: Acetaminophen, aspirin 81 mg, gabapentin 100 mg 3 times daily
Medications discontinued that admission: Diltiazem 120 mg daily, HCTZ 25 mg daily, potassium chloride 20 mEq daily
Past History
Past History
ED Past Medical History: Cancer (skin), Hypercholesterolemia and Other (shingles)
ED Past Surgical History: Other (bronchoscopy 12/13/16; R eye cataract surgery; skin cancer, melanoma removed from forehead; drooping eyelid on L fixed; hysterectomy hannah 28 yrs ago)
Patient has exhibited threatening behavior?: No
PSI?: No
Social History
Personal:
Living: with family
Review of Systems
Review of Systems
Allergies reviewed?: Yes
All Other Systems: ROS reviewed and negative except as documented in HPI and ROS
Constitutional: Reports fatigue; Denies fever
Respiratory: Reports trouble breathing (FERRELL)
Cardiac: Denies chest pain
ABD/GI: Denies abdominal pain, nausea, vomiting or diarrhea
: Denies dysuria, frequency, difficulty voiding or urgency
Musculoskeletal: Reports edema (mild swelling LEs)
Skin: Reports no symptoms
Neurological: Reports no symptoms
Phy Exam
Physical Exam
Physical Exam:
GENERAL: No acute distress. A&Ox3.
CONSTITUTIONAL: Afebrile.
EYES: clear, conjunctivae normal
ENMT: moist mucus membranes, Pharynx nl
RESPIRATORY: Regular respirations, nonlabored, lungs clear. Tachypneic at 28 breaths/min. Pulse ox 93% on room air
CARDIOVASCULAR: Regular rate and rhythm, no murmurs, no rubs.
GI: Soft, nontender, normal BS
MUSCULOSKELETAL: Moves with ease. Well perfused. Trace edema both ankles
SKIN: Warm, dry, pink
PSYCH: Normal mood and affect. Well kept, interactive and appropriate
NEUROLOGIC: Awake, alert and oriented. No focal neurological deficits
Scores
Heart Failure Risk
Heart Failure Risk Score: Not Applicable
Course
Orders/Labs/Results
Orders:
Orders
02/05/25 12:09
Electrocardiogram (*1) Urgent
Reason for Study: Shortness of Breath
EKG- Treatment ONCE
Comprehensive Metabolic Panel Urgent
02/05/25 12:10
Complete Blood Count/With Diff Urgent
Pro-BNP [NT-proBNP] Urgent
02/05/25 12:23
CR Chest - 2 Views Urgent
Comment:
Reason For Exam: FERRELL, mild edema, aortic valv repla 01/16
02/05/25 12:27
O2 Therapy [RESP] Urgent
Nasal Cannula Liter Flow: 2 LPM
Titrate/Wean O2 to maintain O2 sat greater than (%): 95
02/05/25 13:59
CARDIOLOGY CONSULT Urgent
Consulting Provider: Josef Ceron
Was physician already notified: Yes
Reason for consult: FERRELL recent aortic valve replacement
Cardiothoracic Surgery Consult Urgent
Consulting Provider: Josef Pope
Was physician already notified: Yes
Reason for Consult: FERRELL recent aortic valve replacement
02/05/25 14:00
Furosemide [Lasix] 40 mg IV NOW STA
02/05/25 14:05
Consult Interventional Radiology [IRAD CONSULT] Routine
Consulting Provider: Carlos Alberto Lake
Was physician already notified: Yes
Reason for Consult/Procedure: right thoracentesis
Acknowledgement that appropriate orders are entered: N/A
02/05/25 14:33
Echo Follow up Study W Dop Routine
02/05/25 14:55
CR Chest Single View Urgent
Comment:
Reason For Exam: post thoracentesis
02/05/25 16:19
Admit/Transfer Patient As Directed
Co-Sign Provider:
Level of Care: Inpatient admission
Assign to:: Telemetry
Physician / Group: Morelia Rodriguez
Diagnosis: acute HFpEF, bilateral pleural effusion
Reason for Telemetry: Acute Heart Failure
Date to Stop Telemetry: 02/08/25
Time to Stop Telemetry: 11:00
Reason for Hospitalization: acute HFpEF, bilateral pleural effusion
Expected length of stay greater than two midnights?: Yes
ELOS- Estimated Length of Stay in days: 3
I certify the patient meets the requirements for IP care: Yes
PRN Pain Medication Management As Directed
May give lesser potent ordered pain med per pt: Yes
preference::
Protocol:: Medication orders for pain may be administered in a
manner that supports deferring to patient preference
when the pt is:
- Requesting an ordered lesser potent pain medication.
Least to most potent pain medications are defined
as: acetaminophen < NSAID < tramadol < opioids
(morphine, oxycodone, hydromorphone).
- Requesting a lesser dose of the same medication IF
ORDERED.
- Requesting a less intrusive route of administration
if both routes are prescribed by the provider (PO <
IV).
02/05/25 16:21
Code Status As Directed
Resuscitation Status: Full Code
02/05/25 16:28
Change in Level of Care [Level of Care Change] As Directed
Level of Care: Observation services
02/08/25 11:00
DC Protocol for Telemetry ONCE
Abnormal Lab Results
02/05/25 02/05/25
12:09 12:10
WBC 3.4 L 10^3/uL
(4.8-10.8)
RBC 4.06 L 10^6/uL
(4.20-5.40)
Hgb 11.4 L g/dL
(12.0-16.0)
Hct 35.8 L %
(37.0-47.0)
MCHC 31.8 L g/dL
(33.0-37.0)
RDW 16.2 H %
(11.5-14.5)
Absolute Lymphs (auto) 0.8 L 10^3/uL
(1.2-3.4)
Creatinine 0.5 L mg/dL
(0.6-1.0)
Glucose 113 H mg/dl
(70-99)
AST 53 H U/L
(14-36)
Total Protein 5.8 L g/dl
(6.3-8.2)
02/05/25 12:10
02/05/25 12:09
Vital Signs
Initial and Last Documented VS:
Initial Vital Signs
BP
143/70
02/05/25 12:00
Last Documented Vital Signs
Temp Pulse Resp BP Pulse Ox
98.5 F 103 29 153/75 95
02/05/25 12:02 02/05/25 17:00 02/05/25 17:00 02/05/25 15:24 02/05/25 16:00
MDM/Problems Addressed
Differential Diagnosis Includes:
CHF,, pleural effusion
MDM/Problems Addressed:
79-year-old female from [facility] with history of HTN, HLD, pacemaker, admitted 01/16 to 01/21/2025 for aortic valve replacement 01/12/25, presents for sudden onset fatigue, FERRELL past 2 days.
Went to PCP Dr. Wharton for f/u and he was concerned 'about my leg swelling and shortness of breath.'
Pt denies fever/ chest pain,n/v/d/c. Has been eating and drinking well. Does not feel SOB at rest.
New medications since that admission: Acetaminophen, aspirin 81 mg, gabapentin 100 mg 3 times daily
Medications discontinued that admission: Diltiazem 120 mg daily, HCTZ 25 mg daily, potassium chloride 20 mEq daily
Afebrile, NAD
mildly tachypneic, pulse ox 93% RA at rest
EKG: NSR w PACs no change from previous
12:30 PM:
CBC with no clinically significant abnormality
CMP unremarkable.
BNP 1390
1:20 p.m.
Consulted Cardiac surgeon Dr. Pope, someone will be down to see her
Dr. Ceron also notified.
1:50 p.m.
PA from Cardiothoracic surgery in
CXR radiology report read:
IMPRESSION:
Moderate bilateral pleural effusions. Right larger than left. Stable.
Bilateral atelectasis versus scarring. Stable on the right. Increased on the left.
Hospitalist notified of admission.
*EKG
EKG Intrepretation Date: 02/05/25
Interpretation: normal
Comparison EKG: no changes
Heart Rate: 98
Rate: normal
Rhythm: sinus and PAC's
Frohna: normal axis
Interval: normal interval
QRS Pattern: normal QRS
Ischemia: no ischemia
*Critical Care Note
Total Time (30-74mins, 75-104mins- exclusive of procedures): Not Applicable
ED Attending Note
-
Portions of this chart may have been created with voice recognition software.� Occasional wrong word or��sound alike� substitutions may have occurred due to the inherent limitations of voice recognition software.
Discharge Plan
Departure
Patient Disposition: Admit
Date of Disposition: 02/05/25
Time of Disposition: 13:49
Admit to: Telemetry
Presentation/result/management discussed w/ accepting MD/DO: Hospitalist
Condition: Fair
Discharge Problem:
FERRELL (dyspnea on exertion), Edema, Bilateral pleural effusion
Interventions
Interventions:
*Risk Screen - Suicide Last Done: 02/05/25 12:02
*General Assessment Last Done: 02/05/25 12:02
*Neglect/Abuse Screening Last Done: 02/05/25 12:02
*ED- Fall Risk Assessment Last Done: 02/05/25 12:02
*ED COVID-19 Vaccine History Last Done: 02/05/25 12:02
ED- Cardiac Assessment Last Done: 02/05/25 12:02
ED- Pulmonary Assessment Last Done: 02/05/25 12:02
[2025-02-05 12:21] LABS: % Basophils 0.6 % (0-2); % Eosinophils 0.6 % (0-6); % Immature Granulocytes 0.3 % (0-0.5); % Lymphocytes 23.1 % (20.5-51.1); % Monocytes 6.4 % (1.7-9.3); Absolute Lymphocytes 0.8 10^3/uL (1.2-3.4); Absolute Monocytes 0.2 10^3/uL (0.1-0.6); Absolute Neutrophils 2.4 10^3/uL (1.4-6.5); Hematocrit 35.8 % (37.0-47.0); Hemoglobin 11.4 g/dL (12.0-16.0); Mean Corp Hgb Conc. 31.8 g/dL (33.0-37.0); Mean Corpuscular Hgb 28.1 pg (27.0-31.0); Mean Corpuscular Volume 88.2 fL (81.0-99.0); Mean Platelet Volume 10.3 fL (7.4-10.4); Nucleated Red Blood Cells % 0 %; Platelet Count 144 10^3/uL (130-400); Red Blood Cell Count 4.06 10^6/uL (4.20-5.40); Red Cell Dist. Width 16.2 % (11.5-14.5); White Blood Cell Count 3.4 10^3/uL (4.8-10.8)
[2025-02-05 12:41] LABS: ALT (SGPT) 32 U/L (0-35); AST (SGOT) 53 U/L (14-36); Albumin 3.7 g/dl (3.5-5.0); Alkaline Phosphatase 89 U/L (38-126); Blood Urea Nitrogen 16 mg/dl (7-17); Calcium 9.2 mg/dl (8.4-10.2); Carbon Dioxide 27 mmol/L (22-30); Chloride 103 mmol/L (98-107); Estimated Creatinine Clearance 64 ml/min; Glucose 113 mg/dl (70-99); Potassium 3.5 mmol/L (3.5-5.1); Sodium 139 mmol/L (135-145); Total Bilirubin 1.2 mg/dl (0.2-1.3); Total Protein 5.8 g/dl (6.3-8.2); eGFR > 60.00
[2025-02-05 12:42] LABS: NT-proBNP 1390 pg/ml
[2025-02-05] MEDS: LASIX 40 MG IV (14:02)
--- NOTE | 2025-02-05 14:07 | CONSULT.CT ---
Consultation
-
Performing Provider: Ronnell Marrufo PA-C
Reason for Consultation: s/p AVR/MV repair, dyspnea/fatigue/LE edema
Patient History
Physicians
Family Physician: Dr. Iglesias
Outpatient Drain Tile Machine Operator: Dr. Bird
Inpatient Drain Tile Machine Operator: Dr. Ceron
History of Present Illness
The patient is well known to us s/p AVR (21mm Boogie Inspiris bioprosthetic valve), MV repair with 28mm annuloplasty ring, exclusion of left atrial appendage on 01/16/[address] Parker. Her post op course was overall uncomplicated and she was
discharged on POD #5. She did have some brief junctional rhythm post op and went home with a monitor per cardiology. She has felt progressive dyspnea over the last several days as well as faigue and leg swelling. She saw her PCP today who
recommended she be seen in the ER.
Currently she is resting comfortably on RA with O2 sats 95%. She tells me she otherwise feels ok at this point. Her rhythm shows sinus tach with an elevated BP. She denies any pleuritic chest pains. She relates that home health nursing noted
diminished lung sounds and her CXR just prior to discharge showed a small right pleural effusion.
Past Medical History
Severe aortic stenosis s/p AVR (bio)
severe mitral regurgitation s/p MV repair
Hypertension
Hyperlipidemia
Acute postop blood loss anemia- s/p 1 pRBC during prior admission. HH stable here
Acute postop thrombocytopenia, Plt 144 today
Acute postop junctional rhythm now sinus tach
Past Surgical History
Hysterectomy
cataracts
melanoma removal
root canal
Family History
Mother: at Age
Father: at Age
Social History
Alcohol: Occasional
Drug: None
Tobacco: Non-Smoker
Personal:
Living: Alone
Employment: Retired
Allergies
Allergy/AdvReac Type Severity Reaction Status Date / Time
iodine Allergy Rash Verified 01/01/25 14:09
Home Medications
�Medication �Instructions �Recorded �Confirmed �Type
calcium carbonate (Calcium 600) 600 mg PO DAILY Supplement 07/05/23 01/16/25 History
ezetimibe 10 mg tablet 10 mg PO DAILY High Cholesterol 07/05/23 01/16/25 History
prednisolone acetate 1 % eye 1 drp RIGHT EYE Q48H Eye Condition 07/05/23 01/16/25 History
drops,suspension
rosuvastatin 40 mg tablet 40 mg PO DAILY High Cholesterol 07/05/23 01/16/25 History
therapeutic multivitamin 1 tab PO DAILY Supplement 07/05/23 01/16/25 History
peg 400-propylene glycol (PF) 0.4 1 drp ophthalmic (eye) 6XD PRN dry 12/12/24 01/16/25 History
%-0.3 % eye drops in a dropperette eyes
(Systane (PF))
aspirin 81 mg chewable tablet 81 mg PO DAILY Blood clot 01/21/25 Rx
prevention/tx #0 tabs
Review of Systems
-
History Source: Patient
General: Reports Fatigue
HEENT: Reports No Symptoms
Respiratory: Reports SOB and FERRELL
Cardiac: Reports Edema
Abdomen/GI: Reports No Symptoms
: Reports No Symptoms
Musculoskeletal: Reports No Symptoms
Skin: Reports No Symptoms
Neurological: Reports No Symptoms
Vascular: Reports No Symptoms
Physical Exam
Vital Signs
Temp 98.5 F 02/05/25 12:02
Temp route: Oral 02/05/25 12:02
Pulse 101 02/05/25 14:02
Resp Rate 27 02/05/25 13:15
Blood pressure 149/67 02/05/25 14:02
Blood pressure extremity used: Left upper arm 02/05/25 12:02
Position: Sitting 02/05/25 12:02
MAP (cuff-Margarito Monitor) 89 02/05/25 13:00
SaO2 94 02/05/25 13:46
Oxygen Mode of Delivery Room air 02/05/25 12:02
Actual Weight 55.5 kg 02/05/25 12:02
Body Mass Index (BMI) 20.4 02/05/25 12:02
Labs
02/05/25 12:10
02/05/25 12:09
Yvi-X-Uupstteomcc Pept 1390 pg/ml 02/05/25 12:10
Exam
General: Well Developed, Well Nourished and No Apparent Distress
HEENT: Normocephalic and Anicteric
Neck: Trachea Midline
Respiratory: Other (diminished at the bases R>L)
Cardiac: S1/S2 and Regular Rhythm
GI: Soft, Non Tender and Non Distended
Rectal: Deferred by Provider
Skin: Warm and Dry
Neuro: Awake, Alert and Oriented
Extremities: Lower Level Edema
Psych: Calm
Assessment / Plan
-
S/P AVR(bio)/MV repair/ELAA 01/16/25, Dr. Parker: recovering nicely. incision well healed.
Bilateral pleural effusions, dyspnea, hypoxia: R>L. Will ask IR for a rigth thoracentesis. Consulted. Spoke with Dr. Lake. Could consider CTA if there is suspicion for PE although she does have an iodine allergy and states she would need
premedicated. Low suspicion for significant PE at this point based on clinical exam but will discuss with Dr. Parker.
Acute CHF: cardiology consult. IV lasix given. Followed by Dr. Bird outpatient. She is not currently on diuretics at home. Could also utilize yvonne hose.
Recommended admission to observation for medication optimization and thoracentesis. Hopefully can be discharged tomorrow if ok with cardiology and thora is able to be done.
Data Reviewed
-
EKG: Tracing Personally Visualized and interpreted
Radiology: Image Personally Visualized and interpreted
Labs: Labs Reviewed by me
Old Records: Reviewed
Total Time Spent with Patient (in minutes): 47
--- NOTE | 2025-02-05 14:15 | HPS.HSE ---
Family Physician
-
Family Physician:
Chief Complaint
-
exertional shortness of breath
History of Present Illness
Patient is a 79-year-old female with past medical history significant for labile hypertension and hyperlipidemia who presented to [facility] ED for evaluation of exertional shortness of breath. Patient underwent bioprosthetic aortic valve replacement and
mitral valve repair 01/16/2025. Patient reports that s/p surgery she had been doing well and then noticed the last few days feeling increasingly fatigued and experiencing exertional shortness of breath. She also reports bilateral lower extremity
edema. Patient reports having a scheduled follow up today with primary doctor and he referred her to ED for evaluation as he was concerned with fatigue and exertional shortness of breath.
Medical History
Past Medical History
Past Medical History: Reports Other
Additional Past Medical History:
labile hypertension
hyperlipidemia
nonrheumatic aortic valve insufficiency
nonrheumatic mitral valve regurgitation
nonrheumatic tricuspid valve regurgitation
Past Surgical History: Reports Other
Additional Past Surgical History:
aortic valve replacement
mitral valve repair
left atrial clip
Hysterectomy
R Eye cataract
L Eye cataract 06/30/21
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
R Ankle Skin CA removed 2021
root canal 04/30/22
Cardiac cath 12/12/24
Social History
Tobacco: Non-smoker
Alcohol: Occasional
Drug: None
Living: Assisted Living ([facility] )
Family History
Family History: Not pertinent
Allergies / Home Medications
Allergies reflects when Allergies were last updated in [facility].
Home Medications with original date entered in [facility]
Allergy/Medication List:
Allergies
Allergy/AdvReac Type Severity Reaction Status Date / Time
iodine Allergy Rash Verified 01/01/25 14:09
Home Medications
calcium carbonate (Calcium 600) 600 mg PO DAILY Supplement 07/05/23
ezetimibe 10 mg tablet 10 mg PO DAILY High Cholesterol 07/05/23
prednisolone acetate 1 % eye drops,suspension 1 drp RIGHT EYE Q48H Eye Condition 07/05/23
rosuvastatin 40 mg tablet 40 mg PO DAILY High Cholesterol 07/05/23
therapeutic multivitamin 1 tab PO DAILY Supplement 07/05/23
peg 400-propylene glycol (PF) 0.4 %-0.3 % eye drops in a dropperette (Systane (PF)) 1 drp BOTH EYES TIDPRN PRN dry eyes 12/12/24
aspirin 81 mg chewable tablet 81 mg PO DAILY Blood clot prevention/tx #0 tabs 01/21/25
Review of Systems
-
History Source: Patient
Constitutional: Reports Fatigue
EENT: Reports No Symptoms
Respiratory: Reports Trouble Breathing (exertional dyspnea )
Cardiac: Reports No Symptoms
Abdomen/GI: Reports No Symptoms
: Reports No Symptoms
Musculoskeletal: Reports Edema (BLLE)
Skin: Reports No Symptoms
Neurological: Reports No Symptoms
Endocrine: Reports No Symptoms
Hematologic/Lymphatic: Reports No Symptoms
Psych: Reports No Symptoms
Physical Exam
Vital Signs
Vital Signs
Temp Pulse Resp BP Pulse Ox
98.5 F 101 27 149/67 95
02/05/25 12:02 02/05/25 14:02 02/05/25 14:00 02/05/25 14:02 02/05/25 14:00
Physical Exam
General: Well Developed, Well Nourished, No Apparent Distress, Comfortable and Conversant
HEENT: NormoCephalic, Moist mucous membranes, Atraumatic, [place] Conjunctivae, Nose Appears Normal and Ears Appear Normal
Respiratory: Clear and Non Labored Respirations
Cardiac: S1/S2 and Regular Rhythm; No Murmur or Rub
Breast: Deferred by me
GI: Soft, Non Tender, Non Distended and Normal Bowel Sounds; No Organomegaly
Rectal: Deferred by Provider
Genito-urinary: Deferred by me
Musculoskeletal: No Clubbing, No Cyanosis, Edema, Left Lower Extremity and Edema, Right Lower Extremity
Skin: Warm and IV/Catheter Site
Neuro: Awake, Alert, AO x 3 and Nonfocal/grossly intact
Psych: Calm and Intact Judgment/Insight
Laboratory Results
-
02/05/25 12:10
02/05/25 12:09
Laboratory Results
Total Bilirubin 1.2 mg/dl (0.2-1.3) 02/05/25 12:09
AST 53 U/L (14-36) H 02/05/25 12:09
ALT 32 U/L (0-35) 02/05/25 12:09
Alkaline Phosphatase 89 U/L (38-126) 02/05/25 12:09
Data Reviewed
-
Diagnostic Radiology: Report Reviewed by me (CXR: Moderate bilateral pleural effusions. Right larger than left. Stable. Bilateral atelectasis versus scarring. Stable on the right. Increased on the left.)
Medical Tests (Nuc Med, Echo, EKG etc): Report Reviewed by me (EKG: SINUS RHYTHM WITH SHORT DC WITH PREMATURE ATRIAL COMPLEXES CANNOT RULE OUT ANTERIOR INFARCT , AGE UNDETERMINED)
Lab Data: Labs Reviewed by me (BNP 1390)
Impression/Plan
-
IMPRESSION/PLAN:
#acute HFpEF
bioprosthetic aortic valve replacement and mitral valve repair 01/16/2025
ECHO (01/21/2025): Normal biventricular size and systolic function without regional wall motion abnormality. Estimated LVEF 55-60%.
s/p mitral valve repair. Mean gradient is 6-7 mmHg. No mitral regurgitation is seen.
s/p bioprosthetic aortic valve. Peak/mean gradients are 29/17mmHg. Trace aortic regurgitation.
- Admit to telemetry
- Consult CT surgery
- Consult Cardiology
- IV Lasix 40mg BID
- daily weighs and I & Os
- monitor BMP
- repeat ECHO
#Bilateral pleural effusions
dyspnea, hypoxia: R>L
- Consult IR
- thoracentesis
#hyperlipidemia
- continue aspirin, ezetimibe and rosuvastatin
#labile hypertension
#nonrheumatic aortic valve insufficiency
#nonrheumatic mitral valve regurgitation
#nonrheumatic tricuspid valve regurgitation
s/ p aortic valve replacement, mitral valve repair, left atrial clip
Code status: full code
DVT prophylaxis: Lovenox sq
--- NOTE | 2025-02-05 14:24 | W.PN.UPDATE ---
Update Note
Progress Note Update
This is an addendum to H&P written by TELLER HEAD Essence Bradshaw
I saw and examined the patient.
The TELLER HEAD's note was reviewed and I agree with the note.
Comment:
Ms. Ute Adams is a 79 yo woman with hx essential HTN, HLD, severe and severe mitral regurgitation s/p aortic valve replacement, mitral valve repair and left atrial clip 01/15/25 who presents to the ER with fatigue and dyspnea on exertion.
Triage VS: T 98.5, P 102, BP 143/70, RR 27, SpO2 94%
On exam patient has JVP, bibasilar rales, 1+ bilateral LE swelling.
LABS: WBC 3.4, Hg 11.4, PLT 144, Na 139, K+ 3.5, CO2 27, Cr 0.5, Glucose 113, T. Bili 1.2, AST 53, ALT 32, Alk Phos 89, BNP 1390
EKG NSR @ 98, poor R wave progression anterior leads
CXR
IMPRESSION:
Moderate bilateral pleural effusions. Right larger than left. Stable.
Bilateral atelectasis versus scarring. Stable on the right. Increased on the left.
MAR: Lasix 40mg IV x 1
Heart Failure preserved EF, Acute Exacerbation
-TTE from 01/21/25 with EF 55-60% with bio-AVR and MV repair
-CT surgery saw patient in the ER; IR consulted for right thoracentesis s/p 1.5L removed
-admit to IVU
-Lasix 40mg IV BID
-strict I/O, daily weights
-Cardiology consulted
-repeat TTE
severe and severe mitral regurgitation s/p aortic valve replacement, mitral valve repair and left atrial clip 01/15/25
-seen by CTS in the ER
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
HLD
-SMOCKING MACHINE OPERATOR statin
Essential HTN
DVT PPx
Remainder of plan per TELLER HEAD note
76 minutes spent on patient care
--- NOTE | 2025-02-05 14:40 | CON.CAR ---
Addendum entered and electronically signed by Josef Ceron MD 02/05/25 16:08:
Correction to below..
Patient did have some issues with sinus node dysfunction and junctional rhythm postoperatively as noted.
However the patient does not have right bundle branch block or bifascicular block. This is an incorrect statement that is listed below.
Addendum entered and electronically signed by Josef Ceron MD 02/05/25 15:57:
I saw and examined the patient.
The INVENTORY CHECKER's note was reviewed and I agree with the note.
79-year-old woman who underwent bioprosthetic aortic valve replacement and mitral valve repair 01/16/2025 postoperatively patient did have some bradycardia and junctional rhythm diltiazem was discontinued. Postop she completed an M cot with no
reported bradycardia arrhythmias requiring pacing. Patient states initially she felt well when she went home she had some intermittent sense of shortness of breath and over the last 3 to 4 days has had increased shortness of breath. Patient noted
to have bilateral pleural effusions in the ER and just returned from IR after thoracentesis with reported removal of 1500 mL. Patient has some mild lower extremity edema she has been compliant with medical therapy proBNP 1300. ECG shows sinus
rhythm with bifascicular block
#Shortness of breath may be combination of factors including heart failure with preserved ejection fraction and postoperative pleural effusions.
- Patient is post right-sided thoracentesis. Still significant residual fluid on left. May consider left thoracentesis this admission as well.
- Diuresis with IV Lasix
- Monitor weights, and renal function.
- Echocardiogram
# Postop AVR and mitral valve repair
- Assess with echo
- CT surgery consultation
# Right bundle branch block/bifascicular block. Patient with issues with postoperative bradycardia. Currently in sinus rhythm
- Monitor on telemetry
Original Note:
Consultation
Consultation Request
Date/Time Consultation Requested: 02/05/2025 14:00
Date/Time Consultation Performed: 02/05/2025 14:10
Requesting Provider: ARACELIS Carpenter
Performing Provider: ARACELIS Fonseca for Dr. Ceron
Reason for Consultation: Pleural effusions
Medical History
-
Chief Complaint: Shortness of breath
History of Present Illness:
Ute Adams is an 79-year-old female (known to Dr. Bird, her primary last model maker), with severe aortic stenosis, moderate aortic regurgitation, moderate/severe mitral regurgitation, mild/moderate tricuspid regurgitation, hypertension with
whitecoat element, and dyslipidemia with recent admission for aortic valve replacement and mitral valve repair on 01/16/2025. She was discharged home 01/21/2025 with a few medication changes. They include the stopping of her potassium, HCTZ, and
diltiazem. She had sinus node dysfunction with a junctional rhythm briefly postoperatively. She completed an MCOT. She presents to the emergency department today with shortness of breath. She believes her shortness of breath has been ongoing for
about 3 to 4 days. She endorsed associated lower extremity edema. She was referred to the emergency department for evaluation. She is currently off AV john agents. Rhythm is sinus tachycardia on telemetry. Chest x-ray with moderate bilateral
pleural effusions, right greater than left. She is not hypoxic. Cardiology was consulted along with cardiovascular surgery.
Past Medical History
Past Medical History: Arrhythmias (Aortic valve replacement and mitral valve repair [01/16/2025]), HTN and Hypercholesterolemia
Past Surgical History: Cardiac and Gynecological
Social History
Tobacco: Non-Smoker
Alcohol: None
Drug: None
Personal:
Employment: Retired
Family History
Family History: Reviewed & Not Pertinent
Allergies / Home Medications
Allergy/AdvReac Type Severity Reaction Status Date / Time
iodine Allergy Rash Verified 01/01/25 14:09
�Medication �Instructions �Recorded �Confirmed �Type
calcium carbonate (Calcium 600) 600 mg PO DAILY Supplement 07/05/23 02/05/25 History
ezetimibe 10 mg tablet 10 mg PO DAILY High Cholesterol 07/05/23 02/05/25 History
prednisolone acetate 1 % eye 1 drp RIGHT EYE Q48H Eye Condition 07/05/23 02/05/25 History
drops,suspension
rosuvastatin 40 mg tablet 40 mg PO DAILY High Cholesterol 07/05/23 02/05/25 History
therapeutic multivitamin 1 tab PO DAILY Supplement 07/05/23 02/05/25 History
peg 400-propylene glycol (PF) 0.4 1 drp BOTH EYES TIDPRN PRN dry eyes 12/12/24 02/05/25 History
%-0.3 % eye drops in a dropperette
(Systane (PF))
aspirin 81 mg chewable tablet 81 mg PO DAILY Blood clot 01/21/25 02/05/25 Rx
prevention/tx #0 tabs
Review of Systems
-
All other systems: Negative unless noted
Constitutional: No Symptoms
EENT: No Symptoms
Respiratory: Trouble Breathing
Cardiac: No Symptoms
Abdomen/GI: No Symptoms
: No Symptoms
Musculoskeletal: Edema
Skin: No Symptoms
Neurological: No Symptoms
Endocrine: No Symptoms
Hematologic/Lymphatic: No Symptoms
Physical Exam
Vital Signs
Temp Pulse Resp BP Pulse Ox
98.5 F 101 27 149/67 95
02/05/25 12:02 02/05/25 14:02 02/05/25 14:00 02/05/25 14:02 02/05/25 14:00
Lab Results
02/05/25 12:10
02/05/25 12:09
Ood-I-Vujtilbkzdb Pept 1390 pg/ml 02/05/25 12:10
Physical Exam
General: Well Developed, Well Nourished, No Apparent Distress and Comfortable
HEENT: Normocephalic, Anicteric and Moist Mucous Membranes
Respiratory: Clear and Non Labored Respirations
Cardiac: S1/S2, Regular Rhythm (Tachycardia) and Peripheral Edema (B/L LE)
Breast: Deferred by me
GI: Soft, Non Tender, Non Distended and Normal Bowel Sounds
Rectal: Deferred by Provider
Genito-urinary: No Costovertebral Tender
Musculoskeletal: No Clubbing and No Cyanosis
Skin: Warm and Dry
Neuro: AO x 3
Hematologic/Lymphatic: No Lymphadenopathy
Psych: Calm
Impression / Plan
-
I/P: 79F with severe aortic stenosis, moderate aortic regurgitation, moderate/severe mitral regurgitation, mild/moderate tricuspid regurgitation, hypertension with whitecoat element, and dyslipidemia with recent admission for aortic valve
replacement and mitral valve repair on 01/16/2025 presents with B/L pleural effusions.
Primary last model maker: Dr. Bird
HFpEF, acute
- Bilateral pleural effusions on CXR with an elevated proBNP and lower extremity edema
- Diuresis with furosemide 40 mg IV twice daily, this requires intensive monitoring
- IR consulted by CT surgery for thoracentesis
- Trend daily weight, I/O, and BMP
- Heart failure education
Severe aortic stenosis and severe mitral regurgitation status post bio AVR and MV repair with aortoplasty, ascending aortic replacement anteriorly with bovine pericardium and XIOMARA exclusion 01/16/2025
- Echocardiogram ordered by CTS
- On ASA
Sinus node dysfunction
- Junctional rhythm postoperatively, diltiazem stopped, MCOT report pending
- Now with sinus tachycardia, may be an element of HF
Hypertension, chronic, stable
Dyslipidemia, no CAD on coronary angiography, on rosuvastatin and Zetia
Data Reviewed
-
EKG: Report Reviewed by me
Medical Tests (Nuc Med, Echo etc): Report Reviewed by me
Labs: Labs Reviewed by me
Old Records: Reviewed
--- NOTE | 2025-02-05 20:15 | W.PN.UPDATE ---
Update Note
Progress Note Update
-Patient is febrile with temp 103, tachycardia with hr 116, also complain of dizziness once she out of bed will start orthostatic vitals
-blood cultures, covid, flu, urinalysis ordered.
-IV Tylenol was given
-Patient is positive orthostatics vitals ( Lying BP 117/54 HR 113, sitting 99/49 HR 118, and standing 76/38 HR 119) will continue monitoring
-Covid, flu, and urinalysis (Neg)
-Chest x-ray done earlier afternoon with Moderate bilateral pleural effusions. left progressed, right improved. No pneumothorax.
-Blood cultures are pending.
[2025-02-05] MEDS: KCL 40 MEQ PO (20:23)
[2025-02-05] MEDS: LOVENOX 40 MG SC (20:24)
[2025-02-05] MEDS: OFIRMEV 100 IV (20:38)
[2025-02-05 21:14] LABS: Urine Albumin 1+ (Neg - Trace); Urine Bilirubin Negative (Negative); Urine Character Clear (Clear); Urine Color Yellow; Urine Glucose Negative (Negative); Urine Ketone Negative (Negative); Urine Leukocyte Negative (Negative); Urine Nitrite Negative (Negative); Urine Occult Blood Negative (Negative); Urine Urobilinogen Negative (Neg - 1+)
[2025-02-05 21:23] LABS: Urine Squamous Cell 0-2 /LPF (Few); Urine White Cell 0-2 /HPF (0-5)
[2025-02-05 21:25] LABS: COVID-19 Antigen Negative (Negative)
--- NOTE | 2025-02-05 21:35 | PTCARENOTE ---
Patient's oral temp 103, HR 125, BP 184/87. NET ARCHITECT made aware, orders for UA, covid/flu swab, blood cx, and IV ofirmev. Patient also complaining of dizziness when OOB. Pt to avoid OOB activity per NET ARCHITECT. Orthos ordered and positive - lying BP 117/54 HR
113, sitting 99/49 HR 118, and standing 76/38 HR 119.
[2025-02-06] VITALS (8 sets, daily range): BP systolic 97–136; BP diastolic 56–73; PULSE 73–107; O2SAT 98; BMI 18.2
--- NOTE | 2025-02-06 00:40 | PTCARENOTE ---
Patient's heart rate sustaining 120-140s on telemetry, irregular at times. Patient asleep and asymptomatic. Other VSS. EKG done showing sinus tachycardia with short UT with PACs. While obtaining EKG, HR came down to 100s-110s. SURGICAL SUPPLIES STERILIZER made aware,
orders for BMP, CBC, and mag. Plan of care ongoing.
[2025-02-06 01:01] LABS: Hematocrit 38.1 % (37.0-47.0); Hemoglobin 12.2 g/dL (12.0-16.0); Mean Corpuscular Hgb 28.1 pg (27.0-31.0); Mean Corpuscular Volume 87.8 fL (81.0-99.0); Mean Platelet Volume 9.9 fL (7.4-10.4); Platelet Count 131 10^3/uL (130-400); Red Blood Cell Count 4.34 10^6/uL (4.20-5.40); Red Cell Dist. Width 16.2 % (11.5-14.5); White Blood Cell Count 5.5 10^3/uL (4.8-10.8)
[2025-02-06 01:18] LABS: Blood Urea Nitrogen 17 mg/dl (7-17); Calcium 8.7 mg/dl (8.4-10.2); Carbon Dioxide 26 mmol/L (22-30); Chloride 104 mmol/L (98-107); Estimated Creatinine Clearance 58 ml/min; Glucose 126 mg/dl (70-99); Potassium 3.8 mmol/L (3.5-5.1); Sodium 139 mmol/L (135-145); eGFR > 60.00
[2025-02-06 04:01] LABS: Glucose - Point of Care 111 mg/dl (70-99)
[2025-02-06 06:47] LABS: Mean Corp Hgb Conc. 32.4 g/dL (33.0-37.0); Mean Corpuscular Hgb 28.2 pg (27.0-31.0); Mean Corpuscular Volume 86.9 fL (81.0-99.0); Mean Platelet Volume 10.1 fL (7.4-10.4); Platelet Count 128 10^3/uL (130-400); Red Blood Cell Count 4.26 10^6/uL (4.20-5.40); Red Cell Dist. Width 16.3 % (11.5-14.5); White Blood Cell Count 4.9 10^3/uL (4.8-10.8)
[2025-02-06 07:54] LABS: Blood Urea Nitrogen 19 mg/dl (7-17); Calcium 8.9 mg/dl (8.4-10.2); Carbon Dioxide 28 mmol/L (22-30); Chloride 104 mmol/L (98-107); Estimated Creatinine Clearance 57 ml/min; Glucose 108 mg/dl (70-99); Potassium 4.2 mmol/L (3.5-5.1); Sodium 140 mmol/L (135-145); eGFR > 60.00
--- NOTE | 2025-02-06 09:08 | W.PN.CD ---
Today's Communication / Plan
-
Orthostatic this AM
Hold AM diuresis; consider afternoon lasix
Impression / Plan
-
I/P: 79F with severe aortic stenosis, moderate aortic regurgitation, moderate/severe mitral regurgitation, mild/moderate tricuspid regurgitation, hypertension with whitecoat element, and dyslipidemia with recent admission for aortic valve
replacement and mitral valve repair on 01/16/2025 presents with B/L pleural effusions.
Primary frequency checker: Dr. Bird
HFpEF, acute
- Bilateral pleural effusions on CXR with an elevated proBNP and lower extremity edema
- s/p R thora and improved LE edema
- Orthostatic this AM holding diuresis for this AM
- considering possible L sided thora
- Trend daily weight, I/O, and BMP
- Heart failure education
Severe aortic stenosis and severe mitral regurgitation status post bio AVR and MV repair with aortoplasty, ascending aortic replacement anteriorly with bovine pericardium and XIOMARA exclusion 01/16/2025
- Echocardiogram below
- On ASA
Sinus node dysfunction
- Junctional rhythm postoperatively, diltiazem stopped, MCOT report pending
- Now with sinus tachycardia, may be an element of HF
Hypertension, chronic, stable
Dyslipidemia, no CAD on coronary angiography, on rosuvastatin and Zetia
Subjective: NAD feeling much improved this AM
Echo February 05 2025:CONCLUSIONS
Normal left ventricular systolic function.
Left ventricular ejection fraction is 55-60%.
S/P Mitral Valve Repair - Peak gradient 10mmHg/Mean gradient 3mmHg - no mitral
regurgitation is seen.
S/P bioprosthetic aortic valve - Peak gradient 22mmHg/Mean gradient 10mmHg - no
aortic regurgitation is seen.
Pleural effusion is seen.
Compared to the prior report 01/21/2025. previous mitral mean gradient 6 to 7
mmHg
Physical Exam
Vital Signs/Labs
Vital Signs
Temp Pulse Resp BP Pulse Ox
97.8 F 93 16 110/63 98
02/06/25 07:30 02/06/25 07:30 02/06/25 07:30 02/06/25 07:30 02/06/25 07:30
02/05/25 02/06/25 02/07/25
06:59 06:59 06:59
Actual Weight 109 lb 3 oz
02/06/25 06:20
02/06/25 06:20
Magnesium 2.0 mg/dl (1.6-2.3) 02/06/25 00:40
02/05/25
12:10
Lyq-V-Rrseftxhjfe Pept 1390
Physical Exam
Constitutional: No acute distress and Comfortable
EENT: Anicteric
Cardiovascular: Rhythm & rate is regular and Pedal edema is absent
Respiratory: Other (decreased b/s at L lung bases, mild crackles )
GI: Soft
Neuro/Psych: AO x 3
Data Reviewed
-
Date of Service: February 06, 2025
EKG: Tracing Personally Visualized and interpreted (sr)
Echo: Report Reviewed by me
Labs: Labs Reviewed by me
[2025-02-06] MEDS: OSCAL CAL 500 500 MG PO (09:41)
[2025-02-06] MEDS: CRESTOR 40 MG PO (09:41)
[2025-02-06] MEDS: ZETIA 10 MG PO (09:41)
[2025-02-06] MEDS: LOW STRENGTH ASPIRIN 81 MG PO (09:41)
[2025-02-06] MEDS: THERAGRAN 1 TABLET PO (09:41)
[2025-02-06] MEDS: REFRESH EYE DROPS (PF) 1 DROPS BOTH EYES (11:44)
--- NOTE | 2025-02-06 12:54 | W.PN.HOSP.TC ---
Today's Communication/Plan
-
hold Lasix
F/U Procal
Appreciate Cardiology
Assessment / Plan
Assessment / Plan
Ms. Ute Adams is a 79 yo woman with hx essential HTN, HLD, severe and severe mitral regurgitation s/p aortic valve replacement, mitral valve repair and left atrial clip 01/15/25 who presents to the ER with fatigue and dyspnea on exertion,
admitted with new heart failure.
Triage VS: T 98.5, P 102, BP 143/70, RR 27, SpO2 94%
On exam patient has JVP, bibasilar rales, 1+ bilateral LE swelling.
LABS: WBC 3.4, Hg 11.4, PLT 144, Na 139, K+ 3.5, CO2 27, Cr 0.5, Glucose 113, T. Bili 1.2, AST 53, ALT 32, Alk Phos 89, BNP 1390
EKG NSR @ 98, poor R wave progression anterior leads
CXR
IMPRESSION:
Moderate bilateral pleural effusions. Right larger than left. Stable.
Bilateral atelectasis versus scarring. Stable on the right. Increased on the left.
TTE
Normal left ventricular systolic function.
Left ventricular ejection fraction is 55-60%.
S/P Mitral Valve Repair - Peak gradient 10mmHg/Mean gradient 3mmHg - no mitral
regurgitation is seen.
S/P bioprosthetic aortic valve - Peak gradient 22mmHg/Mean gradient 10mmHg - no
aortic regurgitation is seen.
Pleural effusion is seen.
Compared to the prior report 01/21/2025. previous mitral mean gradient 6 to 7
mmHg
Heart Failure preserved EF, Acute Exacerbation
-TTE from 01/21/25 with EF 55-60% with bio-AVR and MV repair
-CT surgery saw patient in the ER; IR consulted for right thoracentesis s/p 1.5L removed
-admitted to IVU
-s/p diuresis with good response; lasix on hold given orthostasis overnight
-strict I/O, daily weights
-Cardiology consult appreciated
-repeat TTE results above
Fever
-work-up thus far negative
-feeling better this AM
F/U procalcitonin
severe and severe mitral regurgitation s/p aortic valve replacement, mitral valve repair and left atrial clip 01/15/25
-seen by CTS in the ER
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
HLD
-TOBACCO HANGER statin
Essential HTN
DVT PPx Lovenox
FULL CODE
Anticipated Discharge: 24 - 48 hours
Subjective/Interval History
-
Date of Service: February 06, 2025
feeling better
last night she felt dizzy and had a fever
denies feeling sick now; no cough/congestion, no dysuria
Objective Data
-
Labs:
Laboratory Results
02/06/25 02/06/25
00:40 06:20
WBC 5.5 4.9
Hgb 12.2 12.0
Hct 38.1 37.0
Plt Count 131 128 L
Sodium 139 140
Potassium 3.8 4.2
Chloride 104 104
Carbon Dioxide 26 28
BUN 17 19 H
Creatinine 0.6 0.6
Glucose 126 H 108 H
Calcium 8.7 8.9
Vital Signs:
Vital Signs
Temp Pulse Resp BP Pulse Ox
97.6 F 105 18 109/62 99
02/06/25 11:40 02/06/25 11:40 02/06/25 11:40 02/06/25 11:40 02/06/25 11:40
I&O
02/05/25 02/06/25 02/07/25
06:59 06:59 06:59
Intake Total 120 / 120
Balance 120 / 120
Review of Systems
-
History Source: Patient
All other systems: Reviewed and negative
Physical Exam
-
General: Well Developed, Well Nourished and No Apparent Distress
HEENT: Normocephalic and Atraumatic
Respiratory: Clear to Auscultation; Negative Wheezes or Rhonchi
Cardiac: Regular Rhythm, S1/S2 and Murmur
GI: Soft, Nontender, Nondistended and Normal Bowel Sounds
Musculoskeletal: No Clubbing, No Cyanosis and No Edema
Neuro: Awake
Psych: Calm
Data Reviewed
-
Diagnostic Radiology: Report Reviewed by me
Labs: Labs Reviewed by me
[2025-02-06 14:02] LABS: Procalcitonin 0.68 ng/ml (0.0-0.25)
--- NOTE | 2025-02-06 16:17 | W.PN.UPDATE ---
Update Note
Progress Note Update
Procalcitonin mildly elevated but patient reports feeling well today without any localizing symptoms of infection. She has been weaned off of oxygen. Fluid studies ordered for left-sided thora. Will hold off on antibiotics. Given main complaint
was SOB, if fever recurs would start treatment for CAP and repeat CXR tomorrow morning.
[2025-02-06] MEDS: LOVENOX 40 MG SC (17:09)
--- NOTE | 2025-02-06 17:16 | CM ---
Met with patient to obtain information for assessment. Patient stated that she lives at the [facility]. She stated that she is independent with her ADLs, personal care, dressing and bathing. 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 Patient denied any DME. She has not been to a SNF.
Patient has a prescription plan and uses, [facility] for all of her medications.
Her PCP is, Ben Wharton.
Plan: Case management will continue to follow and assist with discharge planning. Home. Will watch for o2 needs.
[2025-02-07 00:32] VITALS: BP 127/70
[2025-02-07 03:25] VITALS: BP 116/70
[2025-02-07 06:00] VITALS: BMI 18.4
[2025-02-07 07:02] LABS: Blood Urea Nitrogen 25 mg/dl (7-17); Calcium 8.6 mg/dl (8.4-10.2); Carbon Dioxide 31 mmol/L (22-30); Chloride 102 mmol/L (98-107); Estimated Creatinine Clearance 58 ml/min; Glucose 92 mg/dl (70-99); Potassium 3.6 mmol/L (3.5-5.1); Sodium 138 mmol/L (135-145); eGFR > 60.00
[2025-02-07 07:25] VITALS: BP 127/68; BP 95/54; BP 98/59; PULSE 105; PULSE 108; PULSE 109
[2025-02-07 07:30] VITALS: BP 127/68
--- NOTE | 2025-02-07 08:03 | W.PN.CD ---
Today's Communication / Plan
-
start colchicine 0.6mg bid ok to decrease to 0.3mg bid if diarrhea develops
would not discharge on diuretic
ok to discharge from a cardiac perspective
will sign off
Impression / Plan
-
I/P: 79F with severe aortic stenosis, moderate aortic regurgitation, moderate/severe mitral regurgitation, mild/moderate tricuspid regurgitation, hypertension with whitecoat element, and dyslipidemia with recent admission for aortic valve
replacement and mitral valve repair on 01/16/2025 presents with B/L pleural effusions.
Primary family assessment worker: Dr. Bird
HFpEF,acute on chronic
-may have been an element with an elevated proBNP and lower extremity edema
-but suspect post operative inflammatory state and post op volume---she had le edema on discharge from the surgery per her report
- Orthostatic 02/06/25 after attempted diuresis
- Trend daily weight, I/O, and BMP
- Heart failure education
- Bilateral pleural effusions on CXR
-may be due to heart failure, but post op inflammation also a consideration
-will start colchicine 0.6mg bid --if developes diarrhea reduce dose in 1/2 and call the officce
- s/p R thora and improved LE edema
-Successful ultrasound-guided thoracentesis, yielding 1400 cc of clear fernando pleural fluid 02/05/25
Severe aortic stenosis and severe mitral regurgitation status post bio AVR and MV repair with aortoplasty, ascending aortic replacement anteriorly with bovine pericardium and XIOMARA exclusion 01/16/2025
- Echocardiogram below
- On ASA
Sinus node dysfunction
- Junctional rhythm postoperatively, diltiazem stopped, [facility] report pending
- Now with sinus tachycardia, may be an element of HF
Hypertension, chronic, stable
Dyslipidemia, no CAD on coronary angiography, on rosuvastatin and Zetia
Subjective: she feels great just hasn't been out of bed much
Echo February 05 2025:CONCLUSIONS
Normal left ventricular systolic function.
Left ventricular ejection fraction is 55-60%.
S/P Mitral Valve Repair - Peak gradient 10mmHg/Mean gradient 3mmHg - no mitral
regurgitation is seen.
S/P bioprosthetic aortic valve - Peak gradient 22mmHg/Mean gradient 10mmHg - no
aortic regurgitation is seen.
Pleural effusion is seen.
Compared to the prior report 01/21/2025. previous mitral mean gradient 6 to 7
mmHg
Physical Exam
Vital Signs/Labs
Vital Signs
Temp Pulse Resp BP Pulse Ox
98.8 F 80 16 116/70 94
02/07/25 03:25 02/07/25 03:25 02/07/25 03:25 02/07/25 03:25 02/07/25 03:25
02/06/25 02/07/25 02/08/25
06:59 06:59 06:59
Actual Weight 109 lb 3 oz 110 lb 9 oz
02/06/25 06:20
02/07/25 06:13
Magnesium 2.0 mg/dl (1.6-2.3) 02/06/25 00:40
02/05/25
12:10
Mct-H-Vdpbmoiyxzo Pept 1390
Physical Exam
Constitutional: No acute distress
Cardiovascular: Rhythm & rate is regular, Pedal edema is absent, JVD pressure is normal, Systolic murmur absent and Diastolic murmur absent
Respiratory: Respiratory effort normal, Lungs clear to auscul., Wheeze Absent, Crackles Absent and Rhonchi Absent
Neuro/Psych: AO x 3
Data Reviewed
-
Date of Service: February 07, 2025
Medical Decision Making: Review of Case with other Provider (miller not sure she was ever in [facility] starting colchicine)
EKG: Other (tele sinus with pvcs)
--- NOTE | 2025-02-07 09:15 | W.PN.UPDATE ---
Update Note
Progress Note Update
Patient resting comfortably in bed, feels well after her right thoracentesis with 1.5 L fluid drainage. Patient started on colchicine per cardiology. Sternal incision intact without erythema. No peripheral edema. Expecting discharge later today.
[2025-02-07] MEDS: LOW STRENGTH ASPIRIN 81 MG PO (09:46)
[2025-02-07] MEDS: THERAGRAN 1 TABLET PO (09:46)
[2025-02-07] MEDS: FLUSH (NSS) 1 FLUSH IV (09:46)
[2025-02-07] MEDS: PRED FORTE 1% EYE DROPS 1 DROP RIGHT EYE (09:46)
[2025-02-07] MEDS: CRESTOR 40 MG PO (09:46)
[2025-02-07] MEDS: OSCAL CAL 500 500 MG PO (09:46)
[2025-02-07] MEDS: ZETIA 10 MG PO (09:46)
[2025-02-07] MEDS: COLCHICINE 0.6 MG PO (09:47)
[2025-02-07 11:17] VITALS: BP 108/54
--- NOTE | 2025-02-07 11:31 | W.PN.HOSP.TC ---
Today's Communication/Plan
-
OK for DC today
Assessment / Plan
Assessment / Plan
Ms. Ute Adams is a 79 yo woman with hx essential HTN, HLD, severe and severe mitral regurgitation s/p aortic valve replacement, mitral valve repair and left atrial clip 01/15/25 who presents to the ER with fatigue and dyspnea on exertion,
admitted with new heart failure.
Triage VS: T 98.5, P 102, BP 143/70, RR 27, SpO2 94%
On exam patient has JVP, bibasilar rales, 1+ bilateral LE swelling.
LABS: WBC 3.4, Hg 11.4, PLT 144, Na 139, K+ 3.5, CO2 27, Cr 0.5, Glucose 113, T. Bili 1.2, AST 53, ALT 32, Alk Phos 89, BNP 1390
EKG NSR @ 98, poor R wave progression anterior leads
CXR
IMPRESSION:
Moderate bilateral pleural effusions. Right larger than left. Stable.
Bilateral atelectasis versus scarring. Stable on the right. Increased on the left.
TTE
Normal left ventricular systolic function.
Left ventricular ejection fraction is 55-60%.
S/P Mitral Valve Repair - Peak gradient 10mmHg/Mean gradient 3mmHg - no mitral
regurgitation is seen.
S/P bioprosthetic aortic valve - Peak gradient 22mmHg/Mean gradient 10mmHg - no
aortic regurgitation is seen.
Pleural effusion is seen.
Compared to the prior report 01/21/2025. previous mitral mean gradient 6 to 7
mmHg
Bilateral pleural effusions, possible inflammatory response post-op
Initially admitted for heart failure exacerbation but orthostatic post lasix
-TTE from 01/21/25 with EF 55-60% with bio-AVR and MV repair
-CT surgery saw patient in the ER; IR consulted for right thoracentesis s/p 1.5L removed
-repeat TTE results above
-appreciate Cardiology consult - started on oral Colchicine
Fever
-infectious work-up negative; may be related to inflammatory reaction above
afebrile > 24 hours
severe and severe mitral regurgitation s/p aortic valve replacement, mitral valve repair and left atrial clip 01/15/25
-seen by CTS in the ER
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
HLD
-INORGANIC CHEMIST statin
Essential HTN
DVT PPx Lovenox
FULL CODE
Anticipated Discharge: Today
Subjective/Interval History
-
Date of Service: February 07, 2025
feeling well
no further fevers overnight
feels ready to go home
Objective Data
-
Labs:
Laboratory Results
02/07/25
06:13
Sodium 138
Potassium 3.6
Chloride 102
Carbon Dioxide 31 H
BUN 25 H
Creatinine 0.6
Glucose 92
Calcium 8.6
Vital Signs:
Vital Signs
Temp Pulse Resp BP Pulse Ox
98.4 F 112 16 108/54 95
02/07/25 11:17 02/07/25 11:17 02/07/25 11:17 02/07/25 11:17 02/07/25 11:17
I&O
02/06/25 02/07/25 02/08/25
06:59 06:59 06:59
Intake Total 120 / 120 1230 / 1230 320 / 320
Balance 120 / 120 1230 / 1230 320 / 320
Review of Systems
-
History Source: Patient
All other systems: Reviewed and negative
Physical Exam
-
General: Well Developed, Well Nourished and No Apparent Distress
HEENT: Normocephalic and Atraumatic
Respiratory: Clear to Auscultation; Negative Wheezes or Rhonchi
Cardiac: Regular Rhythm, S1/S2 and Murmur
GI: Soft, Nontender, Nondistended and Normal Bowel Sounds
Musculoskeletal: No Clubbing, No Cyanosis and No Edema
Neuro: Awake
Psych: Calm
Data Reviewed
-
Diagnostic Radiology: Report Reviewed by me
Labs: Labs Reviewed by me
--- NOTE | 2025-02-07 11:36 | W.DS.TRANS ---
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
-
Discharge Instructions:
Sleep Apnea Risk Low
Discharge Diagnosis/Procedures bilateral pleural effusion post valve repair
surgery
Diet Regular
Activity As tolerated
Driving Restrictions As prior to admission
Bathing Restrictions None
Instructions: *CBC Heart Failure Instructions
Stand-Alone Forms:
Changes to Home Medications: Yes
Discharge Medications:
DC Medications w/original date entered in [employer]
calcium carbonate (Calcium 600) 600 mg PO DAILY Supplement 07/05/23
ezetimibe 10 mg tablet 10 mg PO DAILY High Cholesterol 07/05/23
prednisolone acetate 1 % eye drops,suspension 1 drp RIGHT EYE Q48H Eye Condition 07/05/23
rosuvastatin 40 mg tablet 40 mg PO DAILY High Cholesterol 07/05/23
therapeutic multivitamin 1 tab PO DAILY Supplement 07/05/23
peg 400-propylene glycol (PF) 0.4 %-0.3 % eye drops in a dropperette (Systane (PF)) 1 drp BOTH EYES TIDPRN PRN dry eyes 12/12/24
aspirin 81 mg chewable tablet 81 mg PO DAILY Blood clot prevention/tx #0 tabs 01/21/25
colchicine 0.6 mg tablet 0.6 mg PO BID #60 tabs 02/07/25
Home Medication Changes
Addition of Colchicine
Pending Results: No
--- NOTE | 2025-02-07 12:53 | W.DCSUMMARY ---
Discharge Summary
Discharge Data
Date of Admission: 02/05/25
Date of Discharge: 02/07/25
-
Pending Results: No
Hospital Course
Discharging Physician : Dr. Morelia Rodriguez
Disposition : Home
Principal Discharge diagnosis : Bilateral pleural effusions post- aortic valve replacement and mitral valve repair
Hospital Course :
Ms. Ute Adams is a 79 yo woman with hx essential HTN, HLD, severe and severe mitral regurgitation s/p aortic valve replacement, mitral valve repair and left atrial clip 01/15/25 who presents to the ER with fatigue and dyspnea on exertion.
Triage vitals significant for pulse 102. She appeared volume overloaded on exam. Labs with Na 139, Cr 0.5, BNP 1390. CXR with bilateral pleural effusions. She was admitted to medicine with cardiothoracic surgery and cardiology consulting. IR
consulted as well for thoracentesis and she had 1.4L pleural fluid removed from right lung. Initial concern was heart failure, she received one dose of IV lasix with significant response. Overnight complicated by dizziness, orthostasis and fever
to 103. Diuresis held. Per Cardiology review, concern raised for post-operative inflammatory state. Decision made to start Colchicine 0.6mg BID.
Fever work-up without source of infection, likely secondary to inflammatory state. She remained afebrile for 24 hours prior to discharge and remains without swelling or shortness of breath.
She is discharged to continue follow up with cardiac rehab and with her surgeons post-op.
Time spent on discharge was 35 minutes.
Important imaging findings :
CXR
IMPRESSION:
Moderate bilateral pleural effusions. Right larger than left. Stable.
Bilateral atelectasis versus scarring. Stable on the right. Increased on the left.
TTE
Normal left ventricular systolic function.
Left ventricular ejection fraction is 55-60%.
S/P Mitral Valve Repair - Peak gradient 10mmHg/Mean gradient 3mmHg - no mitral
regurgitation is seen.
S/P bioprosthetic aortic valve - Peak gradient 22mmHg/Mean gradient 10mmHg - no
aortic regurgitation is seen.
Pleural effusion is seen.
Compared to the prior report 01/21/2025. previous mitral mean gradient 6 to 7
mmHg
Procedure findings :
Discharge Plan
-
Patient Disposition: Home (Routine Discharge)
Discharge Diagnosis/Procedures: bilateral pleural effusion post valve repair surgery
Diet: Regular
Activity: As tolerated
Driving Restrictions: As prior to admission
Bathing Restrictions: None
Activity Restrictions/Additional Instructions:
continue cardiac rehab
Instructions: *CBC Heart Failure Instructions
Referrals:
Vida Bond CRNP [Specified Professional Personl] - 02/13/25 8:40 am
Harris Wharton MD [Family Provider] -
Additional Discharge Medication Instructions: Take Colchicine 0.6mg twice a day. Decrease to 0.3mg if you have significant diarrhea.
Prescriptions:
New
colchicine 0.6 mg Tablet
0.6 mg PO BID Qty: 60 2RF
Continued
prednisolone acetate 1 % Drops,Suspension
1 drp RIGHT EYE Q48H
ezetimibe 10 mg Tablet
10 mg PO DAILY
rosuvastatin 40 mg Tablet
40 mg PO DAILY
calcium carbonate [Calcium 600] 600 mg calcium (1,500 mg) Tablet
600 mg PO DAILY
therapeutic multivitamin Tablet
1 tab PO DAILY
Systane (PF) 0.4-0.3 % Dropperette
1 drp BOTH EYES TIDPRN PRN (Reason: dry eyes)
aspirin 81 mg Tablet,Chewable
81 mg PO DAILY Qty: 0 0RF
Discharge Orders:
Discharge Patient (As Directed); Ordered 02/07/25
Ordered By: Morelia Rodriguez
Discharge Date and Time
Print Language: HONDURAN
[2025-02-07 14:44] VITALS: BP 124/61
--- NOTE | 2025-02-08 10:06 | W.HF.CON ---
Heart Failure
- LV Function
Left ventricular function study result: LV Ejection fraction >/= 50%
Ejection Fraction Percentage: 55-60
- ARNI
Patient already on ARNI: No
Heart Failure ARNI Not Indicated: LV Ejection Fraction >/= 40%
- ACEI/ARB
Patient already on ACEI/ARB: No
Heart Failure ACEI/ARB Not Indicated: LV Ejection Fraction > 40%
- Beta Sharon
Patient already on Evidence Based Beta Sharon: No
Heart Failure Evidence Based Beta Sharon Not Indicated: LV Ejection Fraction > 40%
- Mineralocorticord Receptor Antagonist
Patient already on MRA: No
Heart Failure MRA Not Indicated: LV Ejection Fraction > 40%
- SGLT-2 Inhibitor
Patient already on SGLT-2 Inhibitor: No
Heart Failure SGLT-2 Inhibitor Not Indicated: LV Ejection Fraction >40%
- NYHA CHF Classification
NYHA CHF Classification Level: Class III - Symptoms w/ min exertion, interferes w/ nml daily activity
- ACC/AHA Stage
ACC/AHA Stage: Stage C: Symptomatic Heart Failure
== END 2025-02-07 16:12 | disposition home or self-care (01) ==
LOC: 4 EAST ACU 17:01
PROVIDERS: Nurse Practitioner Family; ADMITTING PHYSICIAN Student in an Organized Health Care Education/Training Program; CONSULT PHYSICIAN Internal Medicine Cardiovascular Disease; EMERGENCY PHYSICIAN Student in an Organized Health Care Education/Training Program; FAMILY PHYSICIAN Internal Medicine Geriatric Medicine; OTHER PHYSICIAN Thoracic Surgery (Cardiothoracic Vascular Surgery)
DX: I11.0 Hypertensive heart disease with heart failure (principal); R06.02 Shortness of breath; I50.31 Acute diastolic (congestive) heart failure
CPT/HCPCS: 93308; 71045; 71046; 80048; 80053; 81003; 81015; 82962; 83735; 83880; 84145; 85025; 85027; 87040; 87502; 87811; 93005; 93321; 93325; 96374; 97162; 99285; G0378

== ENCOUNTER → 2025-02-22 15:29 | Outpatient (REF) | payer MEDICARE, SELFPAY ==
[2025-02-22 16:19] LABS: % Basophils 1.4 % (0-2); % Eosinophils 0.6 % (0-6); % Immature Granulocytes 0.6 % (0-0.5); % Lymphocytes 24.7 % (20.5-51.1); % Monocytes 4.7 % (1.7-9.3); Absolute Basophils 0.1 10^3/uL (0-0.2); Absolute Lymphocytes 0.9 10^3/uL (1.2-3.4); Absolute Monocytes 0.2 10^3/uL (0.1-0.6); Absolute Neutrophils 2.5 10^3/uL (1.4-6.5); Hematocrit 34.8 % (37.0-47.0); Hemoglobin 11.2 g/dL (12.0-16.0); Mean Corp Hgb Conc. 32.2 g/dL (33.0-37.0); Mean Corpuscular Hgb 27.5 pg (27.0-31.0); Mean Corpuscular Volume 85.5 fL (81.0-99.0); Mean Platelet Volume 10.2 fL (7.4-10.4); Nucleated Red Blood Cells % 0 %; Platelet Count 216 10^3/uL (130-400); Red Blood Cell Count 4.07 10^6/uL (4.20-5.40); Red Cell Dist. Width 15.4 % (11.5-14.5); White Blood Cell Count 3.6 10^3/uL (4.8-10.8)
[2025-02-22 16:51] LABS: ALT (SGPT) 51 U/L (0-35); AST (SGOT) 71 U/L (14-36); Albumin 3.7 g/dl (3.5-5.0); Alkaline Phosphatase 93 U/L (38-126); Blood Urea Nitrogen 14 mg/dl (7-17); Calcium 9.1 mg/dl (8.4-10.2); Carbon Dioxide 32 mmol/L (22-30); Chloride 97 mmol/L (98-107); Glucose 89 mg/dl (70-99); Potassium 3.7 mmol/L (3.5-5.1); Sodium 137 mmol/L (135-145); Total Bilirubin 0.8 mg/dl (0.2-1.3); Total Protein 5.8 g/dl (6.3-8.2); eGFR > 60.00
[2025-02-22 16:59] LABS: NT-proBNP 952 pg/ml
== END ==
LOC: RAD 15:29
PROVIDERS: ATTENDING PHYSICIAN Internal Medicine Geriatric Medicine
DX: Z09 Encounter for follow-up examination after completed treatment for conditions other than malignant neoplasm (principal); I10 Essential (primary) hypertension; J90 Pleural effusion, not elsewhere classified; I34.0 Nonrheumatic mitral (valve) insufficiency; I35.0 Nonrheumatic aortic (valve) stenosis; E78.2 Mixed hyperlipidemia; H69.83 Other specified disorders of Eustachian tube, bilateral; E55.9 Vitamin D deficiency, unspecified; R73.01 Impaired fasting glucose; I95.1 Orthostatic hypotension
CPT/HCPCS: 36415; 71046; 80053; 83880; 85025

== ENCOUNTER 2025-03-20 16:09 | Outpatient (RCR) | payer MEDICARE, SELFPAY | END 2025-03-20 23:59 | disposition home or self-care (01) | LOC: CRHB 16:09 | PROVIDERS: ATTENDING PHYSICIAN Internal Medicine; FAMILY PHYSICIAN Internal Medicine Geriatric Medicine | DX: Z95.4 Presence of other heart-valve replacement (principal); I50.32 Chronic diastolic (congestive) heart failure; I48.0 Paroxysmal atrial fibrillation | CPT/HCPCS: G0422; G0423 ==

== ENCOUNTER 2025-03-22 13:12 | Emergency (ER) | payer MEDICARE, SELFPAY ==
[2025-03-22 13:15] VITALS: BP 137/75
[2025-03-22 13:53] LABS: % Immature Granulocytes 0.3 % (0-0.5); % Lymphocytes 26.9 % (20.5-51.1); % Monocytes 6.2 % (1.7-9.3); % Neutrophils 64.6 % (42.2-75.2); Absolute Lymphocytes 0.8 10^3/uL (1.2-3.4); Absolute Monocytes 0.2 10^3/uL (0.1-0.6); Hematocrit 36.4 % (37.0-47.0); Hemoglobin 11.4 g/dL (12.0-16.0); Mean Corp Hgb Conc. 31.3 g/dL (33.0-37.0); Mean Corpuscular Hgb 26.5 pg (27.0-31.0); Mean Corpuscular Volume 84.7 fL (81.0-99.0); Mean Platelet Volume 12.7 fL (7.4-10.4); Nucleated Red Blood Cells % 0 %; Platelet Count 90 10^3/uL (130-400); Red Cell Dist. Width 15.8 % (11.5-14.5); White Blood Cell Count 3.1 10^3/uL (4.8-10.8)
[2025-03-22 14:08] LABS: ALT (SGPT) 23 U/L (0-35); AST (SGOT) 48 U/L (14-36); Alkaline Phosphatase 61 U/L (38-126); Blood Urea Nitrogen 17 mg/dl (7-17); Calcium 9.5 mg/dl (8.4-10.2); Carbon Dioxide 33 mmol/L (22-30); Chloride 104 mmol/L (98-107); Glucose 122 mg/dl (70-99); Potassium 4.2 mmol/L (3.5-5.1); Sodium 140 mmol/L (135-145); Total Bilirubin 0.8 mg/dl (0.2-1.3); Total Protein 6.2 g/dl (6.3-8.2); eGFR > 60.00
[2025-03-22 14:16] LABS: Troponin I < 0.012 ng/ml
[2025-03-22 15:21] VITALS: BP 160/66
[2025-03-22 16:00] VITALS: BP 147/62
--- NOTE | 2025-03-22 17:20 | ED.GENMED ---
History of Present Illness
General
Chief Complaint: Blood Pressure Problem
Source: patient
Exam Limitations: none
Time Seen by Provider: 03/22/25 17:07
Nursing documentation reviewed up to this point in time: agreed with
History of Present Illness
History of Present Illness:
Patient is a 79-year-old female, status post aortic valve replacement mitral valve repair December 2024, bilateral pleural effusions and thoracentesis with 1.4 L removed January 2025, hypertension hyperlipidemia presents to the ER for evaluation.
Patient reports yesterday at 6 PM she noted she had tingling in both of her fingers of both of her toes and feet. Today she felt a little tired when she woke up and still had the tingling. She took her blood pressure and it was elevated 200/90
which prompted patient to come to the ER. She typically reports her blood pressure is very low. She had no associated headache or blurry vision. She did feel little dizzy.
Currently she has some mild tingling in bilateral toes but denies any tingling in her hands. She had no upper or lower extremity weakness.
She denies any associated chest pain or shortness of breath.
Patient does report she is on Lopressor 12.5 mg at nighttime for her heart rate and not necessarily for elevated blood pressure.
Past History
Past History
ED Past Medical History: Cancer (skin), Hypercholesterolemia and Other (shingles)
ED Past Surgical History: Other (bronchoscopy 12/13/16; R eye cataract surgery; skin cancer, melanoma removed from forehead; drooping eyelid on L fixed; hysterectomy hannah 28 yrs ago)
Patient has exhibited threatening behavior?: No
PSI?: No
Social History
Personal:
Living: with family
Review of Systems
Review of Systems
Allergies reviewed?: Yes
All Other Systems: ROS reviewed and negative except as documented in HPI and ROS
Constitutional: Reports no symptoms
EENT: Reports no symptoms
Respiratory: Denies trouble breathing
Cardiac: Reports no symptoms
ABD/GI: Reports no symptoms
: Reports no symptoms
Musculoskeletal: Reports no symptoms
Skin: Reports no symptoms
Neurological: Reports dizzy and other (tingling to toes/fingers mildly dizzy ); Denies headache
Phy Exam
General Physical Exam
General Presentation: no apparent distress
General age: appears stated age
General Skin: warm and dry
General Habitus: normal
General Mental: alert
General Hydration: appears well hydrated
Cardiovascular Exam
Cardiovascular Exam: regular rate/rhythm, no murmur and normal peripheral pulses
Pulmonary Exam
Pulmonary Exam: lungs clear and no respiratory distress
Neurological Exam
Neurological Exam: alert and oriented x3
Musculoskeletal Exam
Musculoskeletal Exam: full ROM
Skin Exam
Skin Exam: normal color and warm/dry
Psychiatric Exam
Psychiatric Exam: normal mood/affect
Course
Orders/Labs/Results
Orders:
Orders
03/22/25 13:18
Electrocardiogram (*1) Urgent
Reason for Study: Hypertension, Benign
03/22/25 13:19
EKG- Treatment ONCE
03/22/25 13:37
Complete Blood Count/With Diff Urgent
Comprehensive Metabolic Panel Urgent
Troponin I Urgent
03/22/25 17:22
CT Head W/o Iv Contrast Urgent
Comment:
Reason For Exam: elevated bp dizziness
03/22/25 18:54
Vital Signs- Treatment ONCE
Frequency: Once
Abnormal Lab Results
03/22/25
13:37
WBC 3.1 L 10^3/uL
(4.8-10.8)
Hgb 11.4 L g/dL
(12.0-16.0)
Hct 36.4 L %
(37.0-47.0)
MCH 26.5 L pg
(27.0-31.0)
MCHC 31.3 L g/dL
(33.0-37.0)
RDW 15.8 H %
(11.5-14.5)
Plt Count 90 L 10^3/uL
(130-400)
MPV 12.7 H fL
(7.4-10.4)
Absolute Lymphs (auto) 0.8 L 10^3/uL
(1.2-3.4)
Carbon Dioxide 33 H mmol/L
(22-30)
Glucose 122 H mg/dl
(70-99)
AST 48 H U/L
(14-36)
Total Protein 6.2 L g/dl
(6.3-8.2)
03/22/25 13:37
03/22/25 13:37
Vital Signs
Initial and Last Documented VS:
Initial Vital Signs
Temp Pulse Resp BP Pulse Ox
98.2 F 89 20 137/75 97
03/22/25 13:15 03/22/25 13:15 03/22/25 13:15 03/22/25 13:15 03/22/25 13:15
Last Documented Vital Signs
Temp Pulse Resp BP Pulse Ox
98.2 F 84 22 146/64 99
03/22/25 13:15 03/22/25 19:30 03/22/25 19:30 03/22/25 19:00 03/22/25 19:30
MDM/Problems Addressed
MDM/Problems Addressed:
As documented patient presents awake alert no acute distress complains of tingling to her fingers and toes/feet since yesterday. She felt a little dizzy and did not feel well this morning took her blood pressure was all prompting her to come to the
ER. She denies any associated headache as well. On arrival. She denies any tingling to her fingers she feels little mild tingling to bilateral toes. Her blood pressure here is very minimally elevated however not acutely concerning. She is not
short of breath her lungs are clear she is afebrile. Her white count is minimally low at 3.1 her hemoglobin 11.4 (baseline) however her platelets are low at 90,000. Patient is status post valve replacement and valve repair in December she did have
postsurgery thrombocytopenia however her last platelet count was improved this will need to be reevaluated recheck by her family doctor. Her chemistries are and there are no acute findings on EKG. Will check CAT scan however no headache likely
negative patient remains well-appearing in no acute distress stable for discharge
Chronic conditions affecting care:
Aortic valve replacement/mitral valve repair hypertension
*Pulse Oximetry
Patient hypoxic: no
*EKG
Interpreted by ED Provider?: Yes
Heart Rate: 91
Rate: normal
Rhythm: sinus
Ischemia: no ischemia
*Critical Care Note
Total Time (30-74mins, 75-104mins- exclusive of procedures): Not Applicable
ED Attending Note
-
Portions of this chart may have been created with voice recognition software.� Occasional wrong word or��sound alike� substitutions may have occurred due to the inherent limitations of voice recognition software.
Discharge Plan
Departure
Patient Disposition: Home (Routine Discharge)
Date of Disposition: 03/22/25
Time of Disposition: 19:19
Patient with high blood pressure during this ER visit?: Yes
Condition: Fair
Covid-19: Not Applicable
Discharge Problem:
Elevated blood pressure reading
Instructions: High Blood Pressure (DC), BLOOD PRESSURE
Prescriptions:
No Action
prednisolone acetate 1 % Drops,Suspension
1 drp RIGHT EYE Q48H
ezetimibe 10 mg Tablet
10 mg PO DAILY
rosuvastatin 40 mg Tablet
40 mg PO DAILY
calcium carbonate [Calcium 600] 600 mg calcium (1,500 mg) Tablet
600 mg PO DAILY
therapeutic multivitamin Tablet
1 tab PO DAILY
Systane (PF) 0.4-0.3 % Dropperette
1 drp BOTH EYES TIDPRN PRN (Reason: dry eyes)
aspirin 81 mg Tablet,Chewable
81 mg PO DAILY Qty: 0 0RF
colchicine 0.6 mg Tablet
0.6 mg PO BID Qty: 60 2RF
Referrals:
Harris Wharton MD [Family Provider, Internal Medicine]
Activity Restrictions/Additional Instructions:
As discussed please follow-up with your family doctor in the next 2 days for reevaluation of your blood pressure. In addition your platelets were low and will need to be rechecked again along with your white blood cell count. Your CAT scan was
negative. Return if any worsening of symptoms including headache blurry vision chest pain shortness of breath elevated blood pressure or any concerning symptoms.
Interventions
Interventions:
*Risk Screen - Suicide Last Done: 03/22/25 19:12
*General Assessment Last Done: 03/22/25 13:15
*Neglect/Abuse Screening Last Done: 03/22/25 18:36
*ED- Fall Risk Assessment Last Done: 03/22/25 18:36
*ED COVID-19 Vaccine History Last Done: 03/22/25 18:36
*Nursing Disposition Last Done: 03/22/25 19:48
ED- Cardiac Assessment Last Done: 03/22/25 18:36
ED- Neurological Assessment Last Done: 03/22/25 18:36
ED- Pulmonary Assessment Last Done: 03/22/25 18:36
Discharge Date and Time
Discharge Date/Time: 03/22/25 19:56
Print Language: ESTONIAN
[2025-03-22 18:42] VITALS: BP 152/67
[2025-03-22 19:00] VITALS: BP 146/64
== END 2025-03-22 19:56 | disposition home or self-care (01) ==
LOC: EMR 13:12
PROVIDERS: Emergency Medicine; EMERGENCY PHYSICIAN Emergency Medicine; FAMILY PHYSICIAN Internal Medicine Geriatric Medicine
DX: I10 Essential (primary) hypertension (principal); E78.00 Pure hypercholesterolemia, unspecified; Z85.828 Personal history of other malignant neoplasm of skin; Z95.2 Presence of prosthetic heart valve
CPT/HCPCS: 99284; 70450; 80053; 84484; 85025; 93005

== ENCOUNTER 2025-04-22 15:34 | Outpatient (RCR) | payer MEDICARE, SELFPAY | END 2025-04-22 23:59 | disposition home or self-care (01) | LOC: CRHB 15:34 | PROVIDERS: ATTENDING PHYSICIAN Internal Medicine; FAMILY PHYSICIAN Internal Medicine Geriatric Medicine | DX: I50.32 Chronic diastolic (congestive) heart failure (principal); Z95.4 Presence of other heart-valve replacement (principal) | CPT/HCPCS: G0422; G0423 ==

== ENCOUNTER → 2025-05-07 09:28 | Outpatient (REF) | payer MEDICARE, SELFPAY ==
[2025-05-07 10:22] LABS: Hematocrit 37.0 % (37.0-47.0); Hemoglobin 11.6 g/dL (12.0-16.0); Mean Corp Hgb Conc. 31.4 g/dL (33.0-37.0); Mean Corpuscular Volume 84.9 fL (81.0-99.0); Nucleated Red Blood Cells % 0 %; Platelet Count 148 10^3/uL (130-400); Red Cell Dist. Width 16.2 % (11.5-14.5)
[2025-05-07 10:31] LABS: ALT (SGPT) 16 U/L (0-35); AST (SGOT) 33 U/L (14-36); Albumin 4.0 g/dl (3.5-5.0); Alkaline Phosphatase 70 U/L (38-126); Blood Urea Nitrogen 14 mg/dl (7-17); Calcium 9.4 mg/dl (8.4-10.2); Carbon Dioxide 29 mmol/L (22-30); Chloride 107 mmol/L (98-107); Glucose 97 mg/dl (70-99); Potassium 4.2 mmol/L (3.5-5.1); Sodium 140 mmol/L (135-145); Total Protein 6.3 g/dl (6.3-8.2); eGFR > 60.00
== END ==
LOC: OLABPV 09:28
PROVIDERS: ATTENDING PHYSICIAN Internal Medicine Geriatric Medicine
DX: I48.0 Paroxysmal atrial fibrillation (principal); I50.30 Unspecified diastolic (congestive) heart failure; I10 Essential (primary) hypertension; J90 Pleural effusion, not elsewhere classified; I35.0 Nonrheumatic aortic (valve) stenosis; I34.0 Nonrheumatic mitral (valve) insufficiency; E78.2 Mixed hyperlipidemia; H69.83 Other specified disorders of Eustachian tube, bilateral; E55.9 Vitamin D deficiency, unspecified; R73.01 Impaired fasting glucose; I95.1 Orthostatic hypotension; Z13.89 Encounter for screening for other disorder
CPT/HCPCS: 36415; 80053; 85025

== ENCOUNTER 2025-05-22 15:30 | Outpatient (RCR) | payer MEDICARE, SELFPAY ==
[2025-05-17 09:58] LABS: HDL Cholesterol 36 mg/dl; LDL Cholesterol, Calculated 51 mg/dl; Very Low Density Lipoprotein 13 mg/dl (0-30)
== END 2025-05-22 16:19 | disposition home or self-care (01) ==
LOC: CRHB 15:30
PROVIDERS: ATTENDING PHYSICIAN Internal Medicine; FAMILY PHYSICIAN Internal Medicine Geriatric Medicine
DX: Z95.4 Presence of other heart-valve replacement (principal)
CPT/HCPCS: 80061; G0422; G0423

== ENCOUNTER → 2025-07-30 14:45 | Outpatient (REF) | payer MEDICARE, SELFPAY | LOC: HWRCS 14:45 | PROVIDERS: ATTENDING PHYSICIAN Nurse Practitioner Acute Care; FAMILY PHYSICIAN Internal Medicine Geriatric Medicine | DX: Z98.890 Other specified postprocedural states (principal) | CPT/HCPCS: 93306 ==

== ENCOUNTER → 2025-08-05 12:13 | Outpatient (REF) | payer MEDICARE, SELFPAY | LOC: HWWDC 12:13 | PROVIDERS: ATTENDING PHYSICIAN Internal Medicine Geriatric Medicine | DX: Z12.31 Encounter for screening mammogram for malignant neoplasm of breast (principal) | CPT/HCPCS: 77063; 77067 ==

== ENCOUNTER 2025-08-12 19:28 | Emergency (ER) | payer MEDICARE, SELFPAY ==
[2025-08-12 19:34] VITALS: BP 170/68
--- NOTE | 2025-08-12 20:37 | ED.GENMED ---
History of Present Illness
General
Chief Complaint: Blood Pressure Problem
Source: patient
Exam Limitations: none
Time Seen by Provider: 08/12/25 20:25
History of Present Illness
History of Present Illness:
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 Patient checked her blood pressure at home last week and systolic blood pressure
was elevated in the 200s. She called her cementer hand and she was switched from metoprolol to carvedilol 6.25 mg twice a day. She has taken 5 doses thus far. Patient has been monitoring her blood pressure in the morning and in the evening before
taking the medication. Her blood pressures in the morning have been normal with systolic blood pressures in the 120s. Her evening blood pressures are high in the 190-200 range. Systolic blood pressure was 220 this evening. She was told to go to
the ED if her blood pressure was that high so she decided to call 911. Patient is asymptomatic at this time and denies any headache, visual changes, chest pain, shortness of breath. Patient was seen in the ED in February 2025 for elevated blood
pressure. She had a workup at that time including blood work, EKG, and CT head which were unremarkable.
Past History
Past History
ED Past Medical History: Cancer (skin), Hypercholesterolemia and Other (shingles)
ED Past Surgical History: Other (bronchoscopy 12/13/16; R eye cataract surgery; skin cancer, melanoma removed from forehead; drooping eyelid on L fixed; hysterectomy hannah 28 yrs ago)
Patient has exhibited threatening behavior?: No
PSI?: No
Social History
Personal:
Living: with family
Phy Exam
General Physical Exam
General Presentation: well appearing and no apparent distress
General Skin: warm and dry
General Habitus: normal
General Mental: alert
ENT Exam
ENT Exam: normocephalic
Cardiovascular Exam
Cardiovascular Exam: regular rate/rhythm
Pulmonary Exam
Pulmonary Exam: lungs clear, no respiratory distress, no rales, no crackles, no rhonchi and no wheezing
Neurological Exam
Neurological Exam: alert
Steffen Coma Scale
Eye Opening: Spontaneous
Verbal Response: Oriented
Motor Response: Obeys Commands
GCS Total Score: 15
Skin Exam
Skin Exam: normal color and warm/dry
Psychiatric Exam
Psychiatric Exam: normal mood/affect
Course
Vital Signs
Initial and Last Documented VS:
Initial Vital Signs
Temp Pulse Resp BP Pulse Ox
98.2 F 81 20 170/68 97
08/12/25 19:34 08/12/25 19:34 08/12/25 19:34 08/12/25 19:34 08/12/25 19:34
Last Documented Vital Signs
Temp Pulse Resp BP Pulse Ox
98.2 F 81 20 144/64 97
08/12/25 19:34 08/12/25 19:34 08/12/25 19:34 08/12/25 21:01 08/12/25 20:40
MDM/Problems Addressed
Differential Diagnosis Includes:
79yoF presenting for asymptomatic hypertension. Recently started on carvedilol 2 days ago. Checked her BP this evening and systolic was 220. No complaints and denies any headache, chest pain, SOB. BP 170/68 on arrival. She is well-appearing in no
distress and exam is reassuring. Differential diagnosis includes: Asymptomatic hypertension, hypertensive urgency, hypertensive emergency
Repeat blood pressure after initial exam improved to 144/64. No indication for workup/testing at this time. She was advised to continue carvedilol and f/u with her PCP and cementer hand. ED return precautions reviewed including chest pain, severe
headache, or stroke-like symptoms. Patient expressed understanding and was discharged in stable condition.
*Pulse Oximetry
SaO2: 97
Oxygen Mode of Delivery: Room air
Patient hypoxic: no
*Critical Care Note
Total Time (30-74mins, 75-104mins- exclusive of procedures): Not Applicable
ED Attending Note
-
Portions of this chart may have been created with voice recognition software.� Occasional wrong word or��sound alike� substitutions may have occurred due to the inherent limitations of voice recognition software.
Discharge Plan
Departure
Patient Disposition: Home (Routine Discharge)
Date of Disposition: 08/12/25
Time of Disposition: 21:03
Patient with high blood pressure during this ER visit?: Yes
Discharge Problem:
Elevated blood pressure reading
Instructions: High Blood Pressure (DC)
Prescriptions:
No Action
prednisolone acetate 1 % Drops,Suspension
1 drp RIGHT EYE Q48H
ezetimibe 10 mg Tablet
10 mg PO DAILY
rosuvastatin 40 mg Tablet
40 mg PO DAILY
calcium carbonate [Calcium 600] 600 mg calcium (1,500 mg) Tablet
600 mg PO DAILY
therapeutic multivitamin Tablet
1 tab PO DAILY
Systane (PF) 0.4-0.3 % Dropperette
1 drp BOTH EYES TIDPRN PRN (Reason: dry eyes)
aspirin 81 mg Tablet,Chewable
81 mg PO DAILY Qty: 0 0RF
colchicine 0.6 mg Tablet
0.6 mg PO BID Qty: 60 2RF
Referrals:
Harris Wharton MD [Family Provider, Internal Medicine]
Activity Restrictions/Additional Instructions:
Continue taking carvedilol as prescribed by your cementer hand.
Please call your cardiology office tomorrow for follow-up. Return to the ER with any new symptoms including chest pain, severe headache, or stroke symptoms.
Interventions
Interventions:
*Risk Screen - Suicide Last Done: 08/12/25 19:34
*General Assessment Last Done: 08/12/25 19:34
*Neglect/Abuse Screening Last Done: 08/12/25 19:34
*ED- Fall Risk Assessment Last Done: 08/12/25 21:14
*ED COVID-19 Vaccine History Last Done: 08/12/25 21:14
*ED Influenza Vaccine History Last Done: 08/12/25 21:14
*Nursing Disposition Last Done: 08/12/25 21:14
ED- Cardiac Assessment Last Done: 08/12/25 21:02
ED- Neurological Assessment Last Done: 08/12/25 21:02
ED- Pulmonary Assessment Last Done: 08/12/25 21:02
Discharge Date and Time
Discharge Date/Time: 08/12/25 21:15
Print Language: NEPALI
[2025-08-12 21:01] VITALS: BP 144/64
== END 2025-08-12 21:15 | disposition home or self-care (01) ==
LOC: EMR 19:28
PROVIDERS: EMERGENCY PHYSICIAN Emergency Medicine; FAMILY PHYSICIAN Internal Medicine Geriatric Medicine
DX: I10 Essential (primary) hypertension (principal); E78.00 Pure hypercholesterolemia, unspecified; Z95.2 Presence of prosthetic heart valve; Z85.820 Personal history of malignant melanoma of skin
CPT/HCPCS: 99282

== ENCOUNTER → 2025-08-16 10:27 | Outpatient (REF) | payer MEDICARE, SELFPAY ==
[2025-08-16 12:02] LABS: Hematocrit 37.4 % (37.0-47.0); Hemoglobin 11.6 g/dL (12.0-16.0); Mean Corp Hgb Conc. 31.0 g/dL (33.0-37.0); Mean Corpuscular Volume 85.6 fL (81.0-99.0); Nucleated Red Blood Cells % 0 %; Platelet Count 154 10^3/uL (130-400); Red Cell Dist. Width 14.6 % (11.5-14.5)
[2025-08-16 12:38] LABS: ALT (SGPT) 18 U/L (0-35); AST (SGOT) 37 U/L (14-36); Albumin 3.6 g/dl (3.5-5.0); Alkaline Phosphatase 66 U/L (38-126); Blood Urea Nitrogen 18 mg/dl (7-17); Calcium 8.8 mg/dl (8.4-10.2); Carbon Dioxide 28 mmol/L (22-30); Chloride 107 mmol/L (98-107); Glucose 97 mg/dl (70-99); Potassium 4.4 mmol/L (3.5-5.1); Sodium 138 mmol/L (135-145); Total Protein 5.9 g/dl (6.3-8.2); eGFR > 60.00
[2025-08-16 13:16] LABS: Cortisol, Random 17.0 ug/dl; TSH 2.22 uIU/ml (0.47-4.68)
== END ==
LOC: OLABPV 10:27
PROVIDERS: ATTENDING PHYSICIAN Internal Medicine Geriatric Medicine
DX: I48.0 Paroxysmal atrial fibrillation (principal); I50.30 Unspecified diastolic (congestive) heart failure; I10 Essential (primary) hypertension; J90 Pleural effusion, not elsewhere classified; I35.0 Nonrheumatic aortic (valve) stenosis; I34.0 Nonrheumatic mitral (valve) insufficiency; E78.2 Mixed hyperlipidemia; E55.9 Vitamin D deficiency, unspecified; R73.01 Impaired fasting glucose; I95.1 Orthostatic hypotension; Z13.89 Encounter for screening for other disorder
CPT/HCPCS: 36415; 80053; 82088; 82533; 83835; 83880; 84244; 84443; 85025

== ENCOUNTER → 2025-09-03 13:47 | Outpatient (REF) | payer MEDICARE, SELFPAY | LOC: RAD 13:47 | PROVIDERS: ATTENDING PHYSICIAN Internal Medicine Geriatric Medicine | DX: I48.0 Paroxysmal atrial fibrillation (principal); I50.30 Unspecified diastolic (congestive) heart failure; I10 Essential (primary) hypertension; J90 Pleural effusion, not elsewhere classified; I35.0 Nonrheumatic aortic (valve) stenosis; I34.0 Nonrheumatic mitral (valve) insufficiency; E78.2 Mixed hyperlipidemia; H69.83 Other specified disorders of Eustachian tube, bilateral; E55.9 Vitamin D deficiency, unspecified; R73.01 Impaired fasting glucose; I95.1 Orthostatic hypotension; Z13.89 Encounter for screening for other disorder | CPT/HCPCS: 93975 ==